=== PATIENT | female | born 1980 | race Caucasian/White ===

== ENCOUNTER 2016-11-28 15:29 | Inpatient (IN) ==
--- NOTE | 2016-11-28 15:45 | Emergency Department Note ---
Disposition Clinical Impression: Acute exacerbation of chronic obstructive airways disease Disposition: Admitted As Inpatient Condition: Fair Referrals: Kian Croft MD [Primary Care Provider] - Forms: ED Satisfaction Letter General Adult HPI - General Chief complaint: ED Shortness of Breath/Dyspnea Stated complaint: PETER Time Seen by Provider: 11/28/16 15:36 Source: patient Nursing Notes Reviewed: Yes Vital Signs Reviewed: Yes - History of Present Illness HPI Narrative: Ms. Hills, a 36-year-old female, presents from home by POV for evaluation of persistent dyspnea. Onset one week ago. She has been managed by an initial prescription of azithromycin for bronchitis. After several days, her symptoms persisted. At that time, her primary care physician prescribed Keflex. After several days, her symptoms persisted. She presents today with worsening of symptoms which she describes as dyspnea worse with mild exertion and right side pain updated in the lower ribs in the right midaxillary line. Patient has a history of COPD on inhalers which have not improved her dyspnea. She also has a history of PE previously treated on Zarrella to; she is currently not on any anticoagulation or antiplatelet medications. Patient has a history of lymphedema for which her left lower extremity is chronically swollen versus the right. ROS: Positive: Dyspnea worse with exertion, right-sided rib pain, palpitations Data: Fever, chills, nausea, vomiting, chest pains Pain Scale: 5 - Related Data Home Medications Medication Instructions Recorded Confirmed Depo-Provera 09/23/16 Previous Rx's Medication Instructions Recorded Azithromycin [Azithromycin 6-Tab 250 mg PO PER PKG DI #6 tab 11/21/16 Pack] Benzonatate [Tessalon] 200 mg PO TID PRN #30 capsule 11/21/16 GuaiFENesin ER [Mucinex] 1,200 mg PO BID #20 tbbp.12hr 11/21/16 methylPREDNISolone [Medrol] 4 mg PO TAPER #21 tablet 11/21/16 Allergies Allergy/AdvReac Type Severity Reaction Status Date / Time morphine AdvReac Hallucinati Verified 11/28/16 15:34 ng All systems ED: reviewed and negative except as stated. Past Medical History - Past Medical History Medical history: Reports: no medical history Surgical history: Reports: cholecystectomy Psychiatric history: Reports: anxiety, depression REVERSE LOGISTICS ANALYST history: Reports: no REVERSE LOGISTICS ANALYST history - Social History Smoking Status: Current every day smoker Smokeless Tobacco Status: No Alcohol use: Reports: none Drug use: Reports: none Physical Exam Vital Signs Reviewed General: Patient is alert, oriented, and in acute respiratory distress-she is tachypneic, using accessory muscles, and sitting forward. HEENT: No facial asymmetry. Head is normocephalic and atraumatic. Oral mucosa moist. Trachea midline. Cardiovascular: Heart tachycardic rate and regular rhythm without clicks, rubs, gallops, or murmurs. No JVD. PMI nondisplaced. Bilateral edema with left LE of greater circumference than right. Dorsalis pedis pulses palpable bilaterally. Respiratory: Symmetric chest rise with good respiratory effort. Bilateral breath sounds have diffuse coarse wheezes. Abdomen: Obese. Bowel sounds present normoactive x-4 quadrants. Abdomen is soft , nondistended, and nontender. Neuro: GCS 15 Psych: Patient's affect is appropriate for situation. - General General appearance: alert, in no apparent distress Course Course Narrative: Patient is SIRS (+) on intake vitals - tachycardic and tachypneic. We will perform laboratory workup in line with sepsis however, will hold on antibiotics and fluids as, in addition to a potential pulmonary infection, I also have a suspicion of pulmonary emboli. Patient presents for evaluation of persistent dyspnea for the past week despite prescription of azithromycin followed by a prescription of Keflex. Patient does have a history of COPD and her symptoms are not relieved with her typical inhalers. She does have a history of PE. She is tachycardic and tachypneic. She is oxygenating well on room air despite her tachypnea. She only wears supplemental oxygen at home during night. Clinically, I am concerned for pneumonia versus PE. She is having no chest pains. Laboratory work shows leukocytosis and hemoconcentration. Hemoconcentration likely secondary to dehydration as evidenced by her elevated creatinine which is above her baseline. I discussed this with the patient as well as my clinical concern for PE and she agrees to continue with CT chest with IV contrast as well as IV fluids. Patient has no elevation in lactic acid. Portable chest x-ray is not concerning for pneumonia. CTA chest shows no infectious process, no effusion, and no common emboli. Patient receive a triple dose of DuoNeb's. Her lung sounds did subjectively improve however, she subjectively does not feel the improvement. Notably the patient is safe for discharge home as she remains tachycardic and subjectively short of breath. Will provide IV site Medrol and admit to hospitalist for acute exacerbation of COPD. Will hold on IV antibiotic until I speak with the hospitalist. Vital Signs Temperature 97.7 F 11/28/16 15:32 Pulse Rate 137 11/28/16 15:32 Respiratory Rate 22 11/28/16 15:32 Blood Pressure 160/108 11/28/16 15:32 O2 Sat by Pulse Oximetry 96 11/28/16 15:32 Temperature 97.7 F 11/28/16 15:32 Pulse Rate 119 11/28/16 18:00 Respiratory Rate 16 11/28/16 18:00 Blood Pressure 131/94 11/28/16 18:00 O2 Sat by Pulse Oximetry 96 11/28/16 18:00 Oxygen Delivery Oxygen Delivery Room Air Medical Decision Making - Lab Data Result diagrams: 11/28/16 15:56 11/28/16 15:56 Lab Results 11/28/16 11/28/16 11/28/16 Range/Units 15:56 15:56 15:56 WBC 16.7 H (4.3-11.1) K/mcL RBC 5.56 H (3.82-4.97) M/mcL Hgb 16.6 H (11.5-15.4) g/dL Hct 49.6 H (35.3-44.9) % MCV 89.2 (83.0-100.0) fL MCH 29.9 (28.0-33.3) pg MCHC 33.5 (31.6-35.5) g/dL RDW 13.1 (11.5-14.5) % Plt Count 425 H (140-400) K/mcL MPV 8.9 L (9.4-12.4) fL Immature Gran % 1.9 (0-4) % Seg Neutrophils % 80.4 % Lymphocytes % 14.4 % Monocytes % 3.1 % Eosinophils % 0.0 % Basophils % 0.2 % Neutrophils # 13.4 H (1.6-8.9) K/mcL Lymphocytes # 2.4 (0.6-4.6) K/mcL Monocytes # 0.5 (0.0-1.3) K/mcL Eosinophils # 0.0 (0.0-0.6) K/mcL Basophils # 0.0 (0.0-0.2) K/mcL APTT (26.0-36.0) Seconds Sodium 140 (136-145) mEq/L Potassium 4.2 (3.5-4.5) mEq/L Chloride 110 H (98-109) mEq/L Carbon Dioxide 17 L (19-29) mEq/L BUN 26 H (7-20) mg/dL Creatinine 1.27 H (0.57-1.11) mg/dL Est GFR ( Amer) 57 L (> 60) Est GFR (Non-Af Amer) 47 L (> 60) BUN/Creatinine Ratio 20 (6-26) Glucose 129 H (70-99) mg/dL Calculated Osmolality 296 (280-300) Lactic Acid 1.9 (0.5-2.2) mmol/L Calcium 9.7 (8.6-10.8) mg/dL B-Natriuretic Peptide (0-100) pg/mL Urine Color (Yellow) Urine Clarity (Clear) Urine pH (5.0-8.0) pH Units Ur Specific Luther (1.010-1.025) Urine Protein (Neg-Trace) mg/dL Urine Glucose (UA) (Normal) mg/dL Urine Ketones (Negative) mg/dL Urine Blood (Negative) Urine Nitrite (Negative) Urine Bilirubin (Negative) Urine Urobilinogen (Normal) mg/dL Ur Leukocyte Esterase (Negative) Urine Microscopic RBC (0-3) per hpf Urine Microscopic WBC (0-3) per hpf Ur Squamous Epith Cells (None-Few) per lpf Urine Bacteria (None-Few) per hpf Hyaline Casts (None-Few) per lpf Ur Culture Indicated? (NO) 11/28/16 11/28/16 11/28/16 Range/Units 15:56 15:56 17:32 WBC (4.3-11.1) K/mcL RBC (3.82-4.97) M/mcL Hgb (11.5-15.4) g/dL Hct (35.3-44.9) % MCV (83.0-100.0) fL MCH (28.0-33.3) pg MCHC (31.6-35.5) g/dL RDW (11.5-14.5) % Plt Count (140-400) K/mcL MPV (9.4-12.4) fL Immature Gran % (0-4) % Seg Neutrophils % % Lymphocytes % % Monocytes % % Eosinophils % % Basophils % % Neutrophils # (1.6-8.9) K/mcL Lymphocytes # (0.6-4.6) K/mcL Monocytes # (0.0-1.3) K/mcL Eosinophils # (0.0-0.6) K/mcL Basophils # (0.0-0.2) K/mcL APTT 27.7 (26.0-36.0) Seconds Sodium (136-145) mEq/L Potassium (3.5-4.5) mEq/L Chloride (98-109) mEq/L Carbon Dioxide (19-29) mEq/L BUN (7-20) mg/dL Creatinine (0.57-1.11) mg/dL Est GFR ( Amer) (> 60) Est GFR (Non-Af Amer) (> 60) BUN/Creatinine Ratio (6-26) Glucose (70-99) mg/dL Calculated Osmolality (280-300) Lactic Acid 1.5 (0.5-2.2) mmol/L Calcium (8.6-10.8) mg/dL B-Natriuretic Peptide < 10 (0-100) pg/mL Urine Color (Yellow) Urine Clarity (Clear) Urine pH (5.0-8.0) pH Units Ur Specific Luther (1.010-1.025) Urine Protein (Neg-Trace) mg/dL Urine Glucose (UA) (Normal) mg/dL Urine Ketones (Negative) mg/dL Urine Blood (Negative) Urine Nitrite (Negative) Urine Bilirubin (Negative) Urine Urobilinogen (Normal) mg/dL Ur Leukocyte Esterase (Negative) Urine Microscopic RBC (0-3) per hpf Urine Microscopic WBC (0-3) per hpf Ur Squamous Epith Cells (None-Few) per lpf Urine Bacteria (None-Few) per hpf Hyaline Casts (None-Few) per lpf Ur Culture Indicated? (NO) 11/28/16 Range/Units 18:05 WBC (4.3-11.1) K/mcL RBC (3.82-4.97) M/mcL Hgb (11.5-15.4) g/dL Hct (35.3-44.9) % MCV (83.0-100.0) fL MCH (28.0-33.3) pg MCHC (31.6-35.5) g/dL RDW (11.5-14.5) % Plt Count (140-400) K/mcL MPV (9.4-12.4) fL Immature Gran % (0-4) % Seg Neutrophils % % Lymphocytes % % Monocytes % % Eosinophils % % Basophils % % Neutrophils # (1.6-8.9) K/mcL Lymphocytes # (0.6-4.6) K/mcL Monocytes # (0.0-1.3) K/mcL Eosinophils # (0.0-0.6) K/mcL Basophils # (0.0-0.2) K/mcL APTT (26.0-36.0) Seconds Sodium (136-145) mEq/L Potassium (3.5-4.5) mEq/L Chloride (98-109) mEq/L Carbon Dioxide (19-29) mEq/L BUN (7-20) mg/dL Creatinine (0.57-1.11) mg/dL Est GFR ( Amer) (> 60) Est GFR (Non-Af Amer) (> 60) BUN/Creatinine Ratio (6-26) Glucose (70-99) mg/dL Calculated Osmolality (280-300) Lactic Acid (0.5-2.2) mmol/L Calcium (8.6-10.8) mg/dL B-Natriuretic Peptide (0-100) pg/mL Urine Color Yellow (Yellow) Urine Clarity Cloudy A (Clear) Urine pH 6.5 (5.0-8.0) pH Units Ur Specific Luther > 1.030 H (1.010-1.025) Urine Protein Negative (Neg-Trace) mg/dL Urine Glucose (UA) Normal (Normal) mg/dL Urine Ketones Negative (Negative) mg/dL Urine Blood Small H (Negative) Urine Nitrite Negative (Negative) Urine Bilirubin Negative (Negative) Urine Urobilinogen Normal (Normal) mg/dL Ur Leukocyte Esterase Large H (Negative) Urine Microscopic RBC 5-15 H (0-3) per hpf Urine Microscopic WBC TNTC H (0-3) per hpf Ur Squamous Epith Cells Many H (None-Few) per lpf Urine Bacteria None Seen (None-Few) per hpf Hyaline Casts None Seen (None-Few) per lpf Ur Culture Indicated? YES A (NO) - EKG Data EKG #1 EKG attestation: Yes I reviewed and interpreted this EKG. EKG results narrative: EKG dated since November 2016 at 15:45 interpreted as sinus tachycardia with a rate of 121. Normal intervals. Normal axis. Nonspecific ST-T changes. Compared to previous dictated showing no acute ischemic changes.
[2016-11-28] MEDS ORDERED: Ipratropium/Albuterol Neb 3 ML IH ONE (15:46)
[2016-11-28] MEDS ORDERED: 0.9 % Sodium Chloride 1,000 ML IVC ONE (15:47)
--- NOTE | 2016-11-28 16:09 | Emergency Department Note ---
Disposition Clinical Impression: Acute exacerbation of chronic obstructive airways disease Disposition: Admitted As Inpatient Condition: Fair Referrals: Kian Croft MD [Primary Care Provider] - Forms: ED Satisfaction Letter General Adult HPI - General Chief complaint: ED Shortness of Breath/Dyspnea Stated complaint: PETER Time Seen by Provider: 11/28/16 15:36 Source: patient Nursing Notes Reviewed: Yes Vital Signs Reviewed: Yes - History of Present Illness Pain Scale: 5 - Related Data Home Medications Medication Instructions Recorded Confirmed Depo-Provera 09/23/16 Previous Rx's Medication Instructions Recorded Azithromycin [Azithromycin 6-Tab 250 mg PO PER PKG DI #6 tab 11/21/16 Pack] Benzonatate [Tessalon] 200 mg PO TID PRN #30 capsule 11/21/16 GuaiFENesin ER [Mucinex] 1,200 mg PO BID #20 tbbp.12hr 11/21/16 methylPREDNISolone [Medrol] 4 mg PO TAPER #21 tablet 11/21/16 Allergies Allergy/AdvReac Type Severity Reaction Status Date / Time morphine AdvReac Hallucinati Verified 11/28/16 15:34 ng Past Medical History - Past Medical History Medical history: Reports: no medical history Surgical history: Reports: cholecystectomy Psychiatric history: Reports: anxiety, depression INSTRUCTOR BRIDGE history: 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: no INSTRUCTOR BRIDGE history - Social History Smoking Status: Current every day smoker Smokeless Tobacco Status: No Alcohol use: Reports: none Drug use: Reports: none Physical Exam - General General appearance: alert, in no apparent distress Course Vital Signs Temperature 97.7 F 11/28/16 15:32 Pulse Rate 137 11/28/16 15:32 Respiratory Rate 22 11/28/16 15:32 Blood Pressure 160/108 11/28/16 15:32 O2 Sat by Pulse Oximetry 96 11/28/16 15:32 Temperature 97.7 F 11/28/16 15:32 Pulse Rate 115 11/28/16 17:30 Respiratory Rate 16 11/28/16 17:30 Blood Pressure 130/94 11/28/16 17:30 O2 Sat by Pulse Oximetry 97 11/28/16 17:30 Oxygen Delivery Oxygen Delivery Room Air Medical Decision Making - MDM Narrative Medical decision making narrative: I examined this patient and my medical decision-making was reviewed with the Resident Physician. I agree with the documented findings, disposition and treatment plan as described except to the extent set forth below. Patient seen and evaluated by myself and Dr. Gutierrez, I agree with his evaluation management plan, I supervised the care of the patient's stay. Patient was in stay was tachycardia and tachypnea. She has had dyspnea and not short of breath. She stated that she has been on antibiotics in urgent care and it sounds like steroids also. She had a history of possible fluid in her lungs but also PE. She does meet moderate criteria on well's criteria sorting ahead and CT her chest we will get labs on her. She is not febrile here she appears nontoxic. Fluids breathing treatment EKG and reassess. She may need admission. 1627 hrs.: Patient's GFR is 1.27; she has had IV contrast dye before and her creatinine was higher. We have given her IV fluids for hydration and to help with clearance of the dye, I think it is important to rule out a PE and I think that is a better study for her versus a VQ scan; discussed this with the patient before the CAT scan is done. She agrees to this plan of management. Chest CTA 11/28/16 15:46 IMPRESSION: No evidence of pulmonary embolism or acute pulmonary abnormality. D/ / Kilo Ramírez MD / Kilo Ramírez MD Interpreting Provider: Kilo Ramírez MD Chest X-Ray 11/28/16 15:46 IMPRESSION: Negative portable study. D/ / Ellie Enriquez Cha, MD / Ellie Enriquez Cha, MD Interpreting Provider: Ellie Enriquez Cha, MD 1745 hrs.: No signs of PE. On CTA. No signs of pneumonia. I think this is more an acute exacerbation of COPD. Regarding [facility] the hospital for that. As her sats improved but she still has wheezing in the bases despite breathing treatments here. She is in agreement with this plan. Waiting on hospitalist for admission and placement. - Lab Data Result diagrams: 11/28/16 15:56 11/28/16 15:56 Lab Results 11/28/16 11/28/16 11/28/16 Range/Units 15:56 15:56 15:56 WBC 16.7 H (4.3-11.1) K/mcL RBC 5.56 H (3.82-4.97) M/mcL Hgb 16.6 H (11.5-15.4) g/dL Hct 49.6 H (35.3-44.9) % MCV 89.2 (83.0-100.0) fL MCH 29.9 (28.0-33.3) pg MCHC 33.5 (31.6-35.5) g/dL RDW 13.1 (11.5-14.5) % Plt Count 425 H (140-400) K/mcL MPV 8.9 L (9.4-12.4) fL Immature Gran % 1.9 (0-4) % Seg Neutrophils % 80.4 % Lymphocytes % 14.4 % Monocytes % 3.1 % Eosinophils % 0.0 % Basophils % 0.2 % Neutrophils # 13.4 H (1.6-8.9) K/mcL Lymphocytes # 2.4 (0.6-4.6) K/mcL Monocytes # 0.5 (0.0-1.3) K/mcL Eosinophils # 0.0 (0.0-0.6) K/mcL Basophils # 0.0 (0.0-0.2) K/mcL APTT (26.0-36.0) Seconds Sodium 140 (136-145) mEq/L Potassium 4.2 (3.5-4.5) mEq/L Chloride 110 H (98-109) mEq/L Carbon Dioxide 17 L (19-29) mEq/L BUN 26 H (7-20) mg/dL Creatinine 1.27 H (0.57-1.11) mg/dL Est GFR ( Amer) 57 L (> 60) Est GFR (Non-Af Amer) 47 L (> 60) BUN/Creatinine Ratio 20 (6-26) Glucose 129 H (70-99) mg/dL Calculated Osmolality 296 (280-300) Lactic Acid 1.9 (0.5-2.2) mmol/L Calcium 9.7 (8.6-10.8) mg/dL B-Natriuretic Peptide (0-100) pg/mL 11/28/16 11/28/16 11/28/16 Range/Units 15:56 15:56 17:32 WBC (4.3-11.1) K/mcL RBC (3.82-4.97) M/mcL Hgb (11.5-15.4) g/dL Hct (35.3-44.9) % MCV (83.0-100.0) fL MCH (28.0-33.3) pg MCHC (31.6-35.5) g/dL RDW (11.5-14.5) % Plt Count (140-400) K/mcL MPV (9.4-12.4) fL Immature Gran % (0-4) % Seg Neutrophils % % Lymphocytes % % Monocytes % % Eosinophils % % Basophils % % Neutrophils # (1.6-8.9) K/mcL Lymphocytes # (0.6-4.6) K/mcL Monocytes # (0.0-1.3) K/mcL Eosinophils # (0.0-0.6) K/mcL Basophils # (0.0-0.2) K/mcL APTT 27.7 (26.0-36.0) Seconds Sodium (136-145) mEq/L Potassium (3.5-4.5) mEq/L Chloride (98-109) mEq/L Carbon Dioxide (19-29) mEq/L BUN (7-20) mg/dL Creatinine (0.57-1.11) mg/dL Est GFR ( Amer) (> 60) Est GFR (Non-Af Amer) (> 60) BUN/Creatinine Ratio (6-26) Glucose (70-99) mg/dL Calculated Osmolality (280-300) Lactic Acid 1.5 (0.5-2.2) mmol/L Calcium (8.6-10.8) mg/dL B-Natriuretic Peptide < 10 (0-100) pg/mL
[2016-11-28 16:15] LABS: Basophils % 0.2 %; Hematocrit 49.6 % (35.3-44.9); Hemoglobin 16.6 g/dL (11.5-15.4); Immature Granulocytes % 1.9 % (0-4); Lymphocytes # 2.4 K/mcL (0.6-4.6); Lymphocytes % 14.4 %; Mean Corpuscular HGB Conc 33.5 g/dL (31.6-35.5); Mean Corpuscular Hemoglobin 29.9 pg (28.0-33.3); Mean Corpuscular Volume 89.2 fL (83.0-100.0); Mean Platelet Volume 8.9 fL (9.4-12.4); Monocytes # 0.5 K/mcL (0.0-1.3); Monocytes % 3.1 %; Neutrophils # 13.4 K/mcL (1.6-8.9); Platelet Count 425 K/mcL (140-400); Red Blood Count 5.56 M/mcL (3.82-4.97); Red Cell Distribution Width 13.1 % (11.5-14.5); Segmented Neutrophils % 80.4 %
[2016-11-28 16:19] LABS: Calcium 9.7 mg/dL (8.6-10.8); Potassium 4.2 mEq/L (3.5-4.5)
[2016-11-28] MEDS ORDERED: methylPREDNISolone 125 MG/2 ML VIAL IVP ONE (17:37)
[2016-11-28 18:22] LABS: Bilirubin,Urine Negative (Negative); Blood,Urine Small (Negative); Clarity,Urine Cloudy (Clear); Color,Urine Yellow (Yellow); Glucose,Urine (UA) Normal (Normal); Ketones,Urine Negative (Negative); Leukocyte Esterase,Urine Large (Negative); Nitrite,Urine Negative (Negative); PH,Urine 6.5 pH Units (5.0-8.0); Protein,Urine Negative (Neg-Trace); Specific Gravity,Urine > 1.030 (1.010-1.025); Urobilinogen,Urine Normal (Normal)
[2016-11-28 18:26] LABS: Bacteria,Urine None Seen per hpf (None-Few); Hyaline Casts,Urine None Seen per lpf (None-Few); Squamous Epithelial Cell,Urine Many per lpf (None-Few); WBC,Urine TNTC per hpf (0-3)
[2016-11-28] MEDS ORDERED: *HR* OxyCODONE/APAP 10/325 TABLET PO ONE (19:23)
[2016-11-28] MEDS ORDERED: Naloxone 0.4 MG/ML INJ IVP PRN (20:23)
[2016-11-28] MEDS ORDERED: Ipratropium/Albuterol Neb 3 ML IH PRN (20:26)
[2016-11-28] MEDS ORDERED: Benzonatate 100 MG CAPSULE PO PRN (20:27)
[2016-11-28] MEDS ORDERED: Nicotine 21 MG PATCH.TD24 TD SCH (20:30)
--- NOTE | 2016-11-28 20:31 | Internal Med History&Physical ---
Date of Encounter: 11/28/16 Time of Encounter: 20:29 Assessment and Plan (1) Acute exacerbation of chronic obstructive airways disease Current visit: Yes Status: Acute IV steroids, IV doxy, duonebs (2) Leukocytosis Current visit: No Status: Acute likely a result of home prednisone. CT chest w/o consolidation Qualifiers: Leukocytosis type: unspecified Qualified Code(s): D72.829 - Elevated white blood cell count, unspecified (3) Nephrolithiasis Current visit: Yes Status: Acute asymptomatic . request for US kidney - ordered (as patient was suppose to get it tomorrow). Follow up with Dr Paulino outpatient for further management (4) Morbid obesity Current visit: Yes Status: Acute Internal Medicine - H&P: HPI Chief complaint: SOB History of present illness: Ms. Hills is a 36 year old female who presents with acute COPD/bronchitis flare. She developed worsening SOB in the last week or so associated with sensation of heart racing with the SOB that is worse on ambulation. She saw her PCP and was prescribed course of antibiotics (azithro and later keflex) and prednisone. However, her symptoms did not improve. As baseline, she smokes 1-2 PPD, is on RA. She however has home oxygen and has been using 3-4 L daily due to respiratory symptoms. She appears to be in sinus tachycardia rate 121 On review, she requested to obtain renal US for stone disease for which she is schedule to have tomorrow in the outpatient - she reports establishing with Dr Paulino urology. Past Med Surg Social Fam HX - Past Medical History Medical history: no medical history Psychiatric history: anxiety, depression - Past Surgical History Surgical History: cholecystectomy - Social History Smoking Status: Current every day smoker Smokeless Tobacco Status: No Alcohol use: none Drug use: none - Family History Father Adopted: No Hx Family Cancer: Yes Internal Medicine - H&P: Meds Depo-Provera 09/23/16 [History] Azithromycin [Azithromycin 6-Tab Pack] 250 mg PO PER PKG DI #6 tab 11/21/16 [Rx] Benzonatate [Tessalon] 200 mg PO TID PRN #30 capsule 11/21/16 [Rx] GuaiFENesin ER [Mucinex] 1,200 mg PO BID #20 tbbp.12hr 11/21/16 [Rx] methylPREDNISolone [Medrol] 4 mg PO TAPER #21 tablet 11/21/16 [Rx] 3 Allergy/AdvReac Type Severity Reaction Status Date / Time morphine AdvReac Hallucinati Verified 11/28/16 15:34 ng All Systems PM: A 10-system review of systems was performed and is negative for pertinent findings except as documented above in the HPI. Review of systems: ROS 14 point review of systems reviewed as best as possible given presentation. Pertinent positive or negative as per HPI or otherwise reviewed as negative - Constitutional Vitals: Temp Pulse Resp BP Pulse Ox 97.7 F 120 0 0/0 96 11/28/16 15:32 11/28/16 19:23 11/28/16 19:42 11/28/16 19:42 11/28/16 19:23 Exam: General - AAO x 3 Psych - Appropriate affect/speech. No agitation Eyes - BLANCA. Eye lids intact. No scleral icterus Neuro - No gross peripheral or central neuro deficits Heart - Sinus. RRR. S1 and S2 present. No added HS/murmurs appreciated. No elevated JVD appreciated. Lung - Adequate air entry b/l, diffuse wheezes throughout, no crackles GI - Soft, non-tender. No hepatosplenomegaly/ascites. BS+ - No CVA/suprapubic tenderness or palpable bladder distension Skin - Intact. No rash/petechiae/ecchymosis. Warm extremities MSK - Joints with normal ROM. No joint swellings Internal Med - H&P Results - Labs CBC & Chem 7: 11/28/16 15:56 11/28/16 15:56
[2016-11-28] MEDS ORDERED: Ipratropium/Albuterol Neb 3 ML IH SCH (22:00)
[2016-11-28 23:17] VITALS: BP 134/82
[2016-11-28] MEDS ORDERED: *HR* OxyCODONE/APAP 10/325 TABLET PO PRN (23:43)
[2016-11-29] MEDS ORDERED: *HR* Methadone 10 MG TABLET PO SCH
[2016-11-29] MEDS ORDERED: MethylPREDNISolone 40 MG/ML VIAL IVP SCH
[2016-11-29] MEDS ORDERED: Doxycycline 100 MG in 0.9 % Sodium Chloride Mini Bag 100 ML IVPB SCH (06:00)
[2016-11-29] MEDS ORDERED: *HR* Enoxaparin 40 MG/0.4 ML SYRINGE SQ SCH (06:00)
--- NOTE | 2016-11-29 17:46 | Electrocardiograph Report ---
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
== END 2016-11-29 01:21 | disposition left against medical advice (07) | DRG 191 ==
LOC: EMEROO 15:29 → 3BNU 15:29
PROVIDERS: ADMIT Internal Medicine Hematology & Oncology; ATTEND Nurse Practitioner Family

== ENCOUNTER 2016-11-29 15:00 | Inpatient (IN) ==
[2016-11-29 15:58] LABS: Basophils # 0.1 K/mcL (0.0-0.2); Basophils % 0.2 %; Hematocrit 46.4 % (35.3-44.9); Hemoglobin 15.2 g/dL (11.5-15.4); Immature Granulocytes % 1.3 % (0-4); Lymphocytes # 4.4 K/mcL (0.6-4.6); Lymphocytes % 14.3 %; Mean Corpuscular HGB Conc 32.8 g/dL (31.6-35.5); Mean Corpuscular Hemoglobin 29.4 pg (28.0-33.3); Mean Corpuscular Volume 89.7 fL (83.0-100.0); Mean Platelet Volume 8.8 fL (9.4-12.4); Monocytes % 6.3 %; Neutrophils # 24.1 K/mcL (1.6-8.9); Platelet Count 413 K/mcL (140-400); Red Blood Count 5.17 M/mcL (3.82-4.97); Red Cell Distribution Width 13.2 % (11.5-14.5); Segmented Neutrophils % 77.9 %
[2016-11-29 16:10] LABS: BUN/Creatinine Ratio 19 (6-26); Blood Urea Nitrogen 23 mg/dL (7-20); Calcium 9.3 mg/dL (8.6-10.8); Carbon Dioxide 18 mEq/L (19-29); Chloride 108 mEq/L (98-109); Glucose 117 mg/dL (70-99); Osmolality,Calculated 293 (280-300); Potassium 3.5 mEq/L (3.5-4.5); Sodium 139 mEq/L (136-145); eGFR For African Americans > 60 (> 60); eGFR For Non-African Americans 51 (> 60)
[2016-11-29 16:20] LABS: Platelet Estimate Normal (Normal)
--- NOTE | 2016-11-29 16:51 | Emergency Department Note ---
START Narrative - START START: I examined this patient and my medical decision-making was reviewed with the CHIPPER/PA/Advanced Practice Nurse/Resident Physician. I agree with the documented findings, disposition and treatment plan as described except to the extent set forth below. ED attending note: Patient seen with emergency medicine resident Dr. FLORES. We independently evaluated the patient. We independently had [id number] contact with the patient. Please see a copy of his note for details of the history and physical, evaluation, management and disposition of this emergency Department patient. Briefly: A 36-year-old female was seen yesterday at [facility] admitted but left AMA. For COPD and pneumonia. Patient returns with similar and worsening symptoms. Her white count is now 3116 yesterday. Patient will get an ultrasound-guided midline IV antibiotics screening labs and chest x-ray with admission and anticipated. Providing 45 minutes of critical care services to this patient
--- NOTE | 2016-11-29 17:19 | Emergency Department Note ---
Disposition Clinical Impression: Acute exacerbation of chronic obstructive airways disease, Leukocytosis Disposition: Admitted As Inpatient Condition: Fair Referrals: Kian Croft MD [Primary Care Provider] - Forms: ED Satisfaction Letter SOB HPI - General Chief Complaint: ED Shortness of Breath/Dyspnea Stated Complaint: COPD,High HR Time Seen by Provider: 11/29/16 16:19 Source: patient Mode of arrival: ambulatory Limitations: no limitations Nursing Notes Reviewed: Yes Vital Signs Reviewed: Yes - History of Present Illness Patient presenting to the ED with the complaint of a COPD exacerbation and tachycardia. Patient was admitted to the hospital last night from this emergency department for a COPD exacerbation. She left AGAINST MEDICAL ADVICE from the hospital floor early this morning due to being "poked too many times for IVs." States that she went home and now feels worse. Implanting of shortness of breath, chest tightness, slightly productive cough. States she was treated as an outpatient for bronchitis versus pneumonia with Keflex and azithromycin but has not improved. She had a dose of antibiotics yesterday, but again left AGAINST MEDICAL ADVICE. Centrally presenting now for readmission. - Related Data Home Medications Medication Instructions Recorded Confirmed Methadone 20 mg PO Q8HR 11/28/16 11/29/16 Oxycodone HCl/Acetaminophen 1 each PO Q4-6H PRN 11/28/16 11/29/16 [Percocet 10-325 mg Tablet] Albuterol Sulfate [Albuterol 2 puff IH Q4H PRN 11/29/16 11/29/16 Inhaler] Amlodipine Besylate 2.5 mg PO DAILY 11/29/16 11/29/16 Ammonium Lactate [Sherice-Hydrolac] 1 appl TP BID 11/29/16 11/29/16 Aripiprazole [Abilify Maintena] 300 mg IM Q28D 11/29/16 11/29/16 Chlorthalidone 25 mg PO DAILY 11/29/16 11/29/16 Ciclopirox Olamine [Ciclopirox] 1 appl TP BID 11/29/16 11/29/16 Ergocalciferol (VITAMIN D2) 50,000 unit PO 2XW 11/29/16 11/29/16 [Vitamin D2] Fluticasone/Salmeterol [Advair 1 each IH BID 11/29/16 11/29/16 250-50 Diskus] Furosemide [Lasix] 40 mg PO BID 11/29/16 11/29/16 Metoclopramide [Reglan] 5 mg PO BID 11/29/16 11/29/16 Metoprolol Succinate 100 mg PO DAILY 11/29/16 11/29/16 Potassium Chloride [Klor-Con 10] 10 meq PO DAILY 11/29/16 11/29/16 Promethazine HCl 12.5 mg PO Q6H PRN 11/29/16 11/29/16 Rivaroxaban [Xarelto] 20 mg PO DAILY 11/29/16 11/29/16 Sertraline [Zoloft] 100 mg PO DAILY 11/29/16 11/29/16 cephALEXin [Cephalexin] 500 mg PO QID 11/29/16 11/29/16 diazePAM [Valium] 10 mg PO BID 11/29/16 11/29/16 predniSONE [PredniSONE] See Taper PO DAILY 11/29/16 11/29/16 rOPINIRole [Requip] 0.25 mg PO HS 11/29/16 11/29/16 Allergies Allergy/AdvReac Type Severity Reaction Status Date / Time morphine AdvReac Hallucinati Verified 11/28/16 15:34 ng All systems ED: reviewed and negative except as stated. Constitutional: Reports: fever, chills Eyes: Denies: vision change Cardiovascular: Reports: chest pain, dyspnea on exertion Respiratory: Reports: cough, dyspnea Gastrointestinal: Reports: nausea. Denies: abdominal pain, vomiting Neurological: Reports: headache (Chronic) Past Medical History - Past Medical History Attestation: Yes The following information was validated with the patient. Source: patient Medical history: Reports: COPD Surgical history: Reports: cholecystectomy, orthopedic, other Psychiatric history: Reports: anxiety, depression CAD DRAFTER history: Reports: no CAD DRAFTER history - Social History Smoking Status: Current every day smoker Smokeless Tobacco Status: No Alcohol use: Reports: none Drug use: Reports: none Physical Exam - General Limitations: no limitations General appearance: alert, in no apparent distress - Head Head exam: atraumatic - ENT ENT exam: normal exam, normal oropharynx, mucous membranes moist - Chest Chest inspection: Present: normal inspection, symmetric chest wall rise - Respiratory Respiratory exam: Present: respiratory distress (Mild, no accessory muscle use) , wheezes. Absent: normal lung sounds bilaterally - Cardiovascular Cardiovascular exam: Present: tachycardia, normal heart sounds - Abdominal Exam Abdominal exam: Present: soft, other (Obese, nontender) - Extremities Exam Extremities exam: Present: other (Chronic lymphedema of the left lower extremity , no change from baseline, no pitting edema, no erythema, no calf tenderness) - Neurological Exam Neurological exam: Present: alert, oriented X3 - Psychiatric Psychiatric exam: Present: normal affect, normal mood - Skin Skin exam: Present: warm, dry, intact, normal color Course Course Narrative: Patient presenting with COPD exacerbation and tachycardia, status post leaving AMA for bronchitis admission. Patient had white blood cell count in the lobby, which was double what it was yesterday. Could be due to steroid administration yesterday. However, patient clinically feeling worse. We will give IV antibiotics, placed midline and admitted to the hospital. - Reevaluation(s) Reevaluation #1: Admitted to hospitalist service Vital Signs Temperature 98.2 F 11/29/16 15:17 Pulse Rate 104 11/29/16 15:17 Respiratory Rate 16 11/29/16 15:17 Blood Pressure 141/98 11/29/16 15:17 O2 Sat by Pulse Oximetry 96 11/29/16 15:17 Temperature 98.2 F 11/29/16 15:17 Pulse Rate 116 11/29/16 18:00 Respiratory Rate 20 11/29/16 18:37 Blood Pressure 160/109 11/29/16 18:37 O2 Sat by Pulse Oximetry 95 11/29/16 18:37 Oxygen Delivery Oxygen Delivery Room Air Shortness of Breath/Dyspnea - Medical Records Medical records reviewed: Yes I reviewed the patient's medical records. - Lab Data Lab results reviewed: Yes I reviewed the patient's lab results. Result diagrams: 11/29/16 15:50 11/29/16 15:50 Lab Results 11/29/16 11/29/16 11/29/16 Range/Units 15:50 15:50 15:50 WBC 30.9 H* D (4.3-11.1) K/mcL RBC 5.17 H (3.82-4.97) M/mcL Hgb 15.2 (11.5-15.4) g/dL Hct 46.4 H (35.3-44.9) % MCV 89.7 (83.0-100.0) fL MCH 29.4 (28.0-33.3) pg MCHC 32.8 (31.6-35.5) g/dL RDW 13.2 (11.5-14.5) % Plt Count 413 H (140-400) K/mcL MPV 8.8 L (9.4-12.4) fL Immature Gran % 1.3 (0-4) % Seg Neutrophils % 77.9 % Lymphocytes % 14.3 % Monocytes % 6.3 % Eosinophils % 0.0 % Basophils % 0.2 % Neutrophils # 24.1 H (1.6-8.9) K/mcL Lymphocytes # 4.4 (0.6-4.6) K/mcL Monocytes # 2.0 H (0.0-1.3) K/mcL Eosinophils # 0.0 (0.0-0.6) K/mcL Basophils # 0.1 (0.0-0.2) K/mcL Platelet Estimate Normal (Normal) Sodium 139 (136-145) mEq/L Potassium 3.5 (3.5-4.5) mEq/L Chloride 108 (98-109) mEq/L Carbon Dioxide 18 L (19-29) mEq/L BUN 23 H (7-20) mg/dL Creatinine 1.18 H (0.57-1.11) mg/dL Est GFR ( Amer) > 60 (> 60) Est GFR (Non-Af Amer) 51 L (> 60) BUN/Creatinine Ratio 19 (6-26) Glucose 117 H (70-99) mg/dL Calculated Osmolality 293 (280-300) Calcium 9.3 (8.6-10.8) mg/dL Troponin I 0.00 (0-0.03) ng/mL - Radiology Data Radiology results reviewed: Yes I reviewed the patient's radiology results. Chest X-Ray 11/29/16 16:58 IMPRESSION: No acute cardiopulmonary abnormality. D/ / Raymond Florentino MD / Raymond Florentino MD Interpreting Provider: Raymond Florentino MD
[2016-11-29] MEDS ORDERED: Aspirin 325 MG TABLET PO ONE (17:26)
[2016-11-29] MEDS ORDERED: Levofloxacin 750 MG/150 ML 750 MG/150 ML BAG IVPB ONE (17:35)
[2016-11-29] MEDS ORDERED: Piperacillin/Tazobactam 4.5 GM in D5% in Water (Mini-Bag+) 100 ML IVPB ONE (17:35)
[2016-11-29] MEDS ORDERED: Ipratropium/Albuterol Neb 3 ML IH ONE (17:35)
[2016-11-29] MEDS ORDERED: *HR* OxyCODONE/APAP 10/325 TABLET PO ONE (20:39)
[2016-11-29] MEDS ORDERED: Naloxone 0.4 MG/ML INJ IVP PRN (20:49)
[2016-11-29] MEDS ORDERED: Ipratropium/Albuterol Neb 3 ML IH PRN (20:49)
--- NOTE | 2016-11-29 20:52 | Internal Med History&Physical ---
Date of Encounter: 11/29/16 Time of Encounter: 20:54 Assessment and Plan (1) Acute exacerbation of chronic obstructive airways disease Current visit: Yes Status: Acute IV steroids, DuoNeb's, IV doxycycline (2) SIRS (systemic inflammatory response syndrome) Current visit: Yes Status: Acute Trend WBC. This could be related to steroid use. Blood cultures not taken prior to antibiotics and administered in the ER. We will monitor her hospital course and management accordingly Tachycardia could be related to respiratory issues - we will monitor (3) Morbid obesity with BMI of 50.0-59.9, adult Current visit: No Status: Acute (4) Chronic back pain Current visit: No Status: Chronic On chronic methadone, percs Qualifiers: Qualified Code(s): M54.9 - Dorsalgia, unspecified; G89.29 - Other chronic pain Internal Medicine - H&P: HPI Chief complaint: SOB History of present illness: Ms. Hills is a 36 year old female who presents with acute COPD flare. 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 She returns due to persistent and worsening SOB not improving while at home. In regards to her presentation, She developed worsening SOB in the last week or so associated with sensation of heart racing with the SOB that is worse on ambulation. She saw her PCP and was prescribed course of antibiotics (azithro and later keflex) and prednisone. However, her symptoms did not improve. As baseline, she smokes 1-2 PPD, is on RA. She however has home oxygen and has been using 3-4 L daily due to respiratory symptoms. In the ED, she was found to have worsening leukocytosis likely related to steroids use. She was empirically treated with broad spectrum antibiotics w/o prior blood draw. She does not appear septic. EKG reviewed by self noted rate 112, sinus tachycardia. XR/XR chest 1V portable IMPRESSION: No acute cardiopulmonary abnormality. Past Med Surg Social Fam HX - Past Medical History Medical history: COPD Psychiatric history: anxiety, depression - Past Surgical History Surgical History: cholecystectomy, orthopedic, other - Social History Smoking Status: Current every day smoker Smokeless Tobacco Status: No Alcohol use: none Drug use: none - Family History Father Adopted: No Hx Family Cancer: Yes (neck) Internal Medicine - H&P: Meds Methadone 20 mg PO Q8HR 11/28/16 [History] Oxycodone HCl/Acetaminophen [Percocet 10-325 mg Tablet] 1 each PO Q4-6H PRN 01/04 [History] Albuterol Sulfate [Albuterol Inhaler] 2 puff IH Q4H PRN 11/29/16 [History] Amlodipine Besylate 2.5 mg PO DAILY 11/29/16 [History] Ammonium Lactate [Sherice-Hydrolac] 1 appl TP BID 11/29/16 [History] Aripiprazole [Abilify Maintena] 300 mg IM Q28D 11/29/16 [History] Chlorthalidone 25 mg PO DAILY 11/29/16 [History] Ciclopirox Olamine [Ciclopirox] 1 appl TP BID 11/29/16 [History] Ergocalciferol (VITAMIN D2) [Vitamin D2] 50,000 unit PO 2XW 11/29/16 [History] Fluticasone/Salmeterol [Advair 250-50 Diskus] 1 each IH BID 11/29/16 [History] Furosemide [Lasix] 40 mg PO BID 11/29/16 [History] Metoclopramide [Reglan] 5 mg PO BID 11/29/16 [History] Metoprolol Succinate 100 mg PO DAILY 11/29/16 [History] Potassium Chloride [Klor-Con 10] 10 meq PO DAILY 11/29/16 [History] Promethazine HCl 12.5 mg PO Q6H PRN 11/29/16 [History] Rivaroxaban [Xarelto] 20 mg PO DAILY 11/29/16 [History] Sertraline [Zoloft] 100 mg PO DAILY 11/29/16 [History] cephALEXin [Cephalexin] 500 mg PO QID 11/29/16 [History] diazePAM [Valium] 10 mg PO BID 11/29/16 [History] predniSONE [PredniSONE] See Taper PO DAILY 11/29/16 [History] rOPINIRole [Requip] 0.25 mg PO HS 11/29/16 [History] 3 Allergy/AdvReac Type Severity Reaction Status Date / Time morphine AdvReac Hallucinati Verified 11/28/16 15:34 ng All Systems PM: A 10-system review of systems was performed and is negative for pertinent findings except as documented above in the HPI. Review of systems: ROS 14 point review of systems reviewed as best as possible given presentation. Pertinent positive or negative as per HPI or otherwise reviewed as negative - Constitutional Vitals: Temp Pulse Resp BP Pulse Ox 98.2 F 116 20 160/109 95 11/29/16 15:17 11/29/16 18:00 11/29/16 18:37 11/29/16 18:37 11/29/16 18:37 Exam: General - AAO x 3 Psych - Appropriate affect/speech. No agitation Eyes - BLANCA. Eye lids intact. No scleral icterus Neuro - No gross peripheral or central neuro deficits with intact CN 2-12 exam Heart - Sinus. RRR. S1 and S2 present. No added HS/murmurs appreciated. No elevated JVD appreciated. Lung - Adequate air entry b/l, diffuse wheezes throughout all lung hobson GI - obesity. Soft, non-tender. No hepatosplenomegaly/ascites. BS+ - No CVA/suprapubic tenderness or palpable bladder distension Skin - Intact. No rash/petechiae/ecchymosis. Warm extremities. +2 swollen calves bilaterally MSK - Joints with normal ROM. No joint swellings Internal Med - H&P Results - Labs CBC & Chem 7: 11/29/16 15:50 11/29/16 15:50 Labs: Short CBC 11/29/16 Range/Units 15:50 WBC 30.9 H* D (4.3-11.1) K/mcL Hgb 15.2 (11.5-15.4) g/dL Hct 46.4 H (35.3-44.9) % Plt Count 413 H (140-400) K/mcL Neutrophils # 24.1 H (1.6-8.9) K/mcL BMP 11/29/16 15:50 Sodium 139 Potassium 3.5 Chloride 108 Carbon Dioxide 18 L BUN 23 H Creatinine 1.18 H Glucose 117 H Calcium 9.3 Cardiac Enzymes 11/29/16 Range/Units 15:50 Troponin I 0.00 (0-0.03) ng/mL - Impressions ITS Impressions Chest X-Ray 11/29/16 15:21 IMPRESSION: No acute cardiopulmonary process. D/ / 11/29/2016 15:57:27 Jon Holley MD / demetria Interpreting Provider: Jon Holley MD Chest X-Ray 11/29/16 16:58 IMPRESSION: No acute cardiopulmonary abnormality. D/ / Raymond Florentino MD / Raymond Florentino MD Interpreting Provider: Raymond Florentino MD
[2016-11-29] MEDS ORDERED: ARIPIPRAZOLE 300 MG IM SCH (21:00)
[2016-11-29] MEDS ORDERED: 0.9 % Sodium Chloride 1,000 ML ONE (21:34)
[2016-11-29] MEDS: Ipratropium/Albuterol Neb 3 ML IH SCH (21:36)
[2016-11-29] MEDS: Azithromycin 500 MG in D5% in Water 250 ML IVPB SCH (22:41)
[2016-11-29] MEDS: MethylPREDNISolone 40 MG/ML VIAL IVP SCH (22:42)
[2016-11-29] MEDS: Furosemide 40 MG TABLET PO SCH (22:43)
[2016-11-29] MEDS: diazePAM 10 MG TABLET PO PRN (22:43)
[2016-11-29] MEDS: rOPINIRole 0.25 MG TABLET PO SCH (22:43)
[2016-11-29] MEDS: *HR* Methadone 10 MG TABLET PO SCH (22:57)
[2016-11-30] MEDS: Ipratropium/Albuterol Neb 3 ML IH SCH ×4 (03:45→21:40)
[2016-11-30 05:29] LABS: BUN/Creatinine Ratio 23 (6-26); Blood Urea Nitrogen 27 mg/dL (7-20); Calcium 9.1 mg/dL (8.6-10.8); Carbon Dioxide 19 mEq/L (19-29); Chloride 106 mEq/L (98-109); Glucose 131 mg/dL (70-99); Osmolality,Calculated 293 (280-300); Sodium 138 mEq/L (136-145); eGFR For African Americans > 60 (> 60); eGFR For Non-African Americans 52 (> 60)
[2016-11-30 05:32] LABS: Basophils % 0.1 %; Hematocrit 44.7 % (35.3-44.9); Hemoglobin 14.9 g/dL (11.5-15.4); Immature Granulocytes % 1.1 % (0-4); Lymphocytes # 1.8 K/mcL (0.6-4.6); Lymphocytes % 12.6 %; Mean Corpuscular HGB Conc 33.3 g/dL (31.6-35.5); Mean Corpuscular Hemoglobin 30.1 pg (28.0-33.3); Mean Corpuscular Volume 90.3 fL (83.0-100.0); Mean Platelet Volume 9.1 fL (9.4-12.4); Monocytes # 0.3 K/mcL (0.0-1.3); Neutrophils # 12.3 K/mcL (1.6-8.9); Platelet Count 323 K/mcL (140-400); Red Blood Count 4.95 M/mcL (3.82-4.97); Red Cell Distribution Width 13.4 % (11.5-14.5); Segmented Neutrophils % 84.2 %
[2016-11-30] MEDS: Doxycycline 100 MG in 0.9 % Sodium Chloride Mini Bag 100 ML IVPB SCH ×2 (05:35→17:50)
[2016-11-30] MEDS: *HR* Methadone 10 MG TABLET PO SCH ×4 (05:35→21:28)
[2016-11-30] MEDS: MethylPREDNISolone 40 MG/ML VIAL IVP SCH ×3 (05:35→17:50)
[2016-11-30] MEDS ORDERED: *HR* Enoxaparin 40 MG/0.4 ML SYRINGE SQ SCH (06:00)
[2016-11-30] MEDS ORDERED: Doxycycline 200 MG in 0.9 % Sodium Chloride 250 ML IVPB SCH (06:00)
[2016-11-30] MEDS: Furosemide 40 MG TABLET PO SCH ×2 (08:47→23:06)
[2016-11-30] MEDS: Metoprolol XL (24 HR) Succ 50 MG TAB.ER.24H PO SCH (08:47)
[2016-11-30] MEDS: *HR* Rivaroxaban 10 MG TABLET PO SCH (08:48)
[2016-11-30] MEDS: *HR* OxyCODONE/APAP 10/325 TABLET PO PRN ×2 (11:58→17:53)
--- NOTE | 2016-11-30 14:22 | Electrocardiograph Report ---
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
--- NOTE | 2016-11-30 16:41 | Internal Med Progress Note ---
Date of Encounter: 11/30/16 Time of Encounter: 16:39 - Assessment and plan (1) Acute exacerbation of chronic obstructive airways disease Current Visit: Yes Status: Acute Assessment and plan: Continue IV antibiotic and IV steroid treatment but she is on Solu-Medrol 40 every 6 hours she is also on IV Levaquin. (2) Morbid obesity with BMI of 50.0-59.9, adult Current Visit: No Status: Acute (3) Acute pulmonary embolism Current Visit: No Status: Acute Assessment and plan: On anticoagulation Qualifiers: Pulmonary embolism type: other Acute cor pulmonale presence: without acute cor pulmonale Qualified Code(s): I26.99 - Other pulmonary embolism without acute cor pulmonale (4) Atrial fibrillation with rapid ventricular response Current Visit: No Status: Acute Assessment and plan: Rate controlled on anticoagulation - Subjective Interval history: Patient was recently admitted for COPD but left AMA. She has returned with the same symptoms of dyspnea and cough. She has been placed on IV Levaquin and IV steroids med with gradual improvement. Still short of breath. The chest pain or cough or fever. - Constitutional Vitals: Temp Pulse Resp BP Pulse Ox 98.5 F 65 18 148/100 93 11/30/16 15:22 11/30/16 15:22 11/30/16 16:00 11/30/16 16:00 11/30/16 16:00 General appearance: Present: A&O X 3, morbidly obese, no acute distress, answers questions appropriately - Head Head exam: Present: atraumatic, normocephalic - Eye Eye exam: Present: PERRL, conjuntiva pink, sclera anicteric Pupils: Present: PERRL - Neck Neck exam general surgery: Present: supple, trachea midline. Absent: lymphadenopathy - Respiratory Respiratory exam: Present: decreased breath sounds, rhonchi, wheezes. Absent: accessory muscle use, rales - Cardiovascular Cardiovascular exam: Present: RRR, +S1, +S2. Absent: diastolic murmur, gallop, rubs, systolic murmur - GI/Abdominal GI/Abdominal exam: Present: normal bowel sounds, soft, no peritoneal signs. Absent: distended, tenderness - Extremities Exam Extremities exam: Present: warm, radial pulses palpable and symmetrical. Absent : calf tenderness, cyanotic, pedal edema - Neurological Exam Neurological exam: Present: CN II-XII intact, oriented X3, no focal deficits. Absent: pronater drift, facial droop, speech deficit - Skin Skin exam: Present: dry, intact Internal Medicine: Result - Labs CBC & Chem 7: 11/30/16 05:03 11/30/16 05:03 Labs: Short CBC 11/30/16 Range/Units 05:03 WBC 14.6 H D (4.3-11.1) K/mcL Hgb 14.9 (11.5-15.4) g/dL Hct 44.7 (35.3-44.9) % Plt Count 323 (140-400) K/mcL Neutrophils # 12.3 H (1.6-8.9) K/mcL BMP 11/30/16 05:03 Sodium 138 Potassium 4.0 Chloride 106 Carbon Dioxide 19 BUN 27 H Creatinine 1.17 H Glucose 131 H Calcium 9.1 Consult Discharge Plan - Plan Referrals: Kian Croft MD [Primary Care Provider] -
[2016-11-30] MEDS: diazePAM 10 MG TABLET PO PRN (21:27)
[2016-11-30] MEDS: rOPINIRole 0.25 MG TABLET PO SCH (21:27)
[2016-11-30] MEDS: Azithromycin 500 MG in D5% in Water 250 ML IVPB SCH (21:34)
[2016-12-01] MEDS: MethylPREDNISolone 40 MG/ML VIAL IVP SCH ×5 (00:58→22:12)
[2016-12-01] MEDS: *HR* OxyCODONE/APAP 10/325 TABLET PO PRN ×3 (01:00→17:29)
[2016-12-01] MEDS: Ipratropium/Albuterol Neb 3 ML IH SCH ×4 (03:50→23:03)
[2016-12-01 04:30] LABS: Hematocrit 45.6 % (35.3-44.9); Mean Corpuscular HGB Conc 32.9 g/dL (31.6-35.5); Mean Corpuscular Hemoglobin 29.4 pg (28.0-33.3); Mean Corpuscular Volume 89.4 fL (83.0-100.0); Mean Platelet Volume 8.9 fL (9.4-12.4); Neutrophils # 22.1 K/mcL (1.6-8.9); Platelet Count 369 K/mcL (140-400); Red Cell Distribution Width 13.3 % (11.5-14.5)
[2016-12-01 04:43] LABS: BUN/Creatinine Ratio 27 (6-26); Blood Urea Nitrogen 32 mg/dL (7-20); Calcium 9.2 mg/dL (8.6-10.8); Carbon Dioxide 23 mEq/L (19-29); Chloride 104 mEq/L (98-109); Glucose 122 mg/dL (70-99); Osmolality,Calculated 296 (280-300); Sodium 139 mEq/L (136-145); eGFR For African Americans > 60 (> 60); eGFR For Non-African Americans 51 (> 60)
[2016-12-01 05:01] LABS: Lymphocytes # 2.5 K/mcL (0.6-4.6); Monocytes # 0.5 K/mcL (0.0-1.3); Platelet Estimate Normal (Normal)
[2016-12-01] MEDS: Doxycycline 100 MG in 0.9 % Sodium Chloride Mini Bag 100 ML IVPB SCH ×2 (06:29→17:26)
[2016-12-01] MEDS: *HR* Methadone 10 MG TABLET PO SCH ×3 (06:30→22:13)
[2016-12-01] MEDS: Furosemide 40 MG TABLET PO SCH ×2 (08:29→22:13)
[2016-12-01] MEDS: *HR* Rivaroxaban 10 MG TABLET PO SCH (08:29)
[2016-12-01] MEDS: Metoprolol XL (24 HR) Succ 50 MG TAB.ER.24H PO SCH (08:33)
[2016-12-01] MEDS: Azithromycin 500 MG in D5% in Water 250 ML IVPB SCH (22:12)
[2016-12-01] MEDS: rOPINIRole 0.25 MG TABLET PO SCH (22:13)
[2016-12-02] MEDS: Ipratropium/Albuterol Neb 3 ML IH SCH ×4 (04:33→22:54)
[2016-12-02 05:26] LABS: Red Cell Distribution Width 13.2 % (11.5-14.5)
[2016-12-02 05:28] LABS: Basophils % 0.2 %; Hematocrit 45.7 % (35.3-44.9); Hemoglobin 15.6 g/dL (11.5-15.4); Immature Granulocytes % 1.4 % (0-4); Immature Platelets 1.8 % (1.1-6.1); Lymphocytes # 1.7 K/mcL (0.6-4.6); Lymphocytes % 6.5 %; Mean Corpuscular HGB Conc 34.1 g/dL (31.6-35.5); Mean Corpuscular Hemoglobin 30.7 pg (28.0-33.3); Mean Platelet Volume 9.1 fL (9.4-12.4); Monocytes # 0.5 K/mcL (0.0-1.3); Monocytes % 1.9 %; Neutrophils # 23.9 K/mcL (1.6-8.9); Platelet Count 355 K/mcL (140-400); Red Blood Count 5.08 M/mcL (3.82-4.97)
[2016-12-02] MEDS: MethylPREDNISolone 40 MG/ML VIAL IVP SCH ×3 (05:55→17:10)
[2016-12-02] MEDS: Doxycycline 100 MG in 0.9 % Sodium Chloride Mini Bag 100 ML IVPB SCH ×2 (05:55→17:10)
[2016-12-02] MEDS: *HR* Methadone 10 MG TABLET PO SCH ×3 (05:56→21:27)
[2016-12-02 06:18] LABS: Basophils # 0.1 K/mcL (0.0-0.2)
[2016-12-02 06:20] LABS: Platelet Estimate Marked Decrease (Normal)
[2016-12-02 06:25] LABS: Albumin 3.2 g/dL (3.5-5.0); Albumin/Globulin Ratio 0.8 (1.1-2.2); Bilirubin,Total 0.2 mg/dL (0.2-1.2); Calcium 9.2 mg/dL (8.6-10.8); Globulin 3.9 g/dL (2.4-3.5); Total Protein 7.1 g/dL (6.0-8.3)
[2016-12-02 06:35] LABS: Potassium 2.8 mEq/L (3.5-4.5)
[2016-12-02] MEDS: *HR* Rivaroxaban 10 MG TABLET PO SCH (08:27)
[2016-12-02] MEDS: Metoprolol XL (24 HR) Succ 50 MG TAB.ER.24H PO SCH (08:27)
[2016-12-02] MEDS ORDERED: Potassium Chloride 40 MEQ, Lidocaine 1% 2 ML in D5% in Water 500 ML IVPB ONE (08:35)
[2016-12-02 09:06] LABS: Bilirubin,Urine Negative (Negative); Blood,Urine Negative (Negative); Clarity,Urine Clear (Clear); Color,Urine Yellow (Yellow); Glucose,Urine (UA) Normal (Normal); Ketones,Urine Negative (Negative); Leukocyte Esterase,Urine Moderate (Negative); Nitrite,Urine Negative (Negative); Protein,Urine Negative (Neg-Trace); Urobilinogen,Urine Normal (Normal)
[2016-12-02 09:09] LABS: Bacteria,Urine None Seen per hpf (None-Few); Hyaline Casts,Urine None Seen per lpf (None-Few); Squamous Epithelial Cell,Urine Many per lpf (None-Few); WBC,Urine 15-30 per hpf (0-3)
[2016-12-02] MEDS: *HR* OxyCODONE/APAP 10/325 TABLET PO PRN ×2 (09:15→15:28)
[2016-12-02 15:41] LABS: Alanine Aminotransferase 22 Units/L (0-55); Albumin 3.3 g/dL (3.5-5.0); Albumin/Globulin Ratio 0.9 (1.1-2.2); Alkaline Phosphatase 73 Units/L (38-126); Aspartate Amino Transferase 17 Units/L (5-34); Bilirubin,Total 0.3 mg/dL (0.2-1.2); Globulin 3.7 g/dL (2.4-3.5)
--- NOTE | 2016-12-02 15:41 | Internal Med Progress Note ---
Date of Encounter: 12/02/16 Time of Encounter: 15:40 - Assessment and plan (1) Acute exacerbation of chronic obstructive airways disease Current Visit: Yes Status: Acute (2) Morbid obesity with BMI of 50.0-59.9, adult Current Visit: No Status: Acute (3) Acute pulmonary embolism Current Visit: No Status: Acute Qualifiers: Pulmonary embolism type: other Acute cor pulmonale presence: without acute cor pulmonale Qualified Code(s): I26.99 - Other pulmonary embolism without acute cor pulmonale (4) Atrial fibrillation with rapid ventricular response Current Visit: No Status: Acute - Subjective Interval history: Patient was recently admitted for COPD but left AMA. She has returned with the same symptoms of dyspnea and cough. She has been placed on IV Levaquin and IV steroids med nebulizer with gradual improvement. Patient breathing has improved she is without oxygen now and lung examination showed relatively clear lungs. It was noted that her creatinine is up and potassium is down. She is on Lasix and hydrochlorothiazide for her leg edema. Her echocardiogram showed EF of 60% with good LV systolic function. For now her diuretics will be on hold gentle IV hydration and potassium supplementation with repeat CBC and CMP in the morning. Overall patient has improved. We will start tapering off IV steroids from tomorrow - Constitutional Vitals: Temp Pulse Resp BP Pulse Ox 98.6 F 70 16 156/86 94 12/02/16 14:55 12/02/16 14:55 12/02/16 14:55 12/02/16 14:55 12/02/16 14:55 General appearance: Present: A&O X 3, morbidly obese, no acute distress, answers questions appropriately - Head Head exam: Present: atraumatic, normocephalic - Eye Eye exam: Present: PERRL, conjuntiva pink, sclera anicteric Pupils: Present: PERRL - Neck Neck exam general surgery: Present: supple, trachea midline. Absent: lymphadenopathy - Respiratory Respiratory exam: Present: CTAB. Absent: accessory muscle use, rales, rhonchi, wheezes - Cardiovascular Cardiovascular exam: Present: RRR, +S1, +S2. Absent: diastolic murmur, gallop, rubs, systolic murmur - GI/Abdominal GI/Abdominal exam: Present: normal bowel sounds, soft, no peritoneal signs. Absent: distended, tenderness - Extremities Exam Extremities exam: Present: warm, radial pulses palpable and symmetrical. Absent : calf tenderness, cyanotic, pedal edema - Neurological Exam Neurological exam: Present: CN II-XII intact, oriented X3, no focal deficits. Absent: pronater drift, facial droop, speech deficit - Skin Skin exam: Present: dry, intact Internal Medicine: Result - Labs CBC & Chem 7: 12/02/16 05:12 12/02/16 05:12 Labs: Short CBC 12/02/16 Range/Units 05:12 WBC 26.6 H (4.3-11.1) K/mcL Hgb 15.6 H (11.5-15.4) g/dL Hct 45.7 H (35.3-44.9) % Plt Count 355 (140-400) K/mcL Neutrophils # 23.9 H (1.6-8.9) K/mcL BMP 12/01/16 12/02/16 04:05 05:12 Sodium 139 138 Potassium 4.0 2.8 L D Chloride 104 98 Carbon Dioxide 23 25 BUN 32 H 39 H Creatinine 1.18 H 1.61 H Glucose 122 H 195 H Calcium 9.2 9.2 Liver Function 12/02/16 Range/Units 05:12 Total Bilirubin 0.2 (0.2-1.2) mg/dL AST 11 (5-34) Units/L ALT 24 (0-55) Units/L Alkaline Phosphatase 80 (38-126) Units/L Albumin 3.2 L (3.5-5.0) g/dL Urine 12/02/16 Range/Units 08:50 Urine Color Yellow (Yellow) Urine Clarity Clear (Clear) Urine pH 6.0 (5.0-8.0) pH Units Ur Specific [facility] 1.020 (1.010-1.025) Urine Protein Negative (Neg-Trace) mg/dL Urine Glucose (UA) Normal (Normal) mg/dL - Impressions Impressions Chest X-Ray 12/02/16 08:39 IMPRESSION: No acute process. D/ / Musa Hernandez MD / Musa Hernandez MD Interpreting Provider: Musa Hernandez MD Consult Discharge Plan - Plan Referrals: Croft,Langston, MD [Primary Care Provider] - 12/08/16 5:00 pm
[2016-12-02] MEDS: Azithromycin 500 MG in D5% in Water 250 ML IVPB SCH (21:26)
[2016-12-02] MEDS: rOPINIRole 0.25 MG TABLET PO SCH (21:27)
[2016-12-03] MEDS: MethylPREDNISolone 40 MG/ML VIAL IVP SCH ×4 (00:26→23:25)
[2016-12-03] MEDS: *HR* OxyCODONE/APAP 10/325 TABLET PO PRN ×3 (00:26→16:07)
[2016-12-03 03:45] LABS: Basophils % 0.2 %; Hematocrit 47.1 % (35.3-44.9); Hemoglobin 15.4 g/dL (11.5-15.4); Lymphocytes # 1.5 K/mcL (0.6-4.6); Lymphocytes % 6.4 %; Mean Corpuscular HGB Conc 32.7 g/dL (31.6-35.5); Mean Corpuscular Hemoglobin 29.6 pg (28.0-33.3); Mean Corpuscular Volume 90.6 fL (83.0-100.0); Monocytes # 0.9 K/mcL (0.0-1.3); Monocytes % 3.7 %; Neutrophils # 20.7 K/mcL (1.6-8.9); Platelet Count 353 K/mcL (140-400); Red Cell Distribution Width 13.1 % (11.5-14.5); Segmented Neutrophils % 88.7 %
[2016-12-03 03:57] LABS: Albumin 3.1 g/dL (3.5-5.0); Albumin/Globulin Ratio 0.8 (1.1-2.2); Bilirubin,Total 0.3 mg/dL (0.2-1.2); Calcium 9.1 mg/dL (8.6-10.8); Globulin 3.8 g/dL (2.4-3.5); Potassium 3.3 mEq/L (3.5-4.5); Total Protein 6.9 g/dL (6.0-8.3)
[2016-12-03] MEDS: Ipratropium/Albuterol Neb 3 ML IH SCH ×4 (05:57→21:19)
[2016-12-03] MEDS: *HR* Methadone 10 MG TABLET PO SCH ×3 (06:11→23:25)
[2016-12-03] MEDS: Doxycycline 100 MG in 0.9 % Sodium Chloride Mini Bag 100 ML IVPB SCH ×2 (06:12→17:12)
[2016-12-03] MEDS: Metoprolol XL (24 HR) Succ 50 MG TAB.ER.24H PO SCH (08:21)
[2016-12-03] MEDS: *HR* Rivaroxaban 10 MG TABLET PO SCH (08:21)
[2016-12-03] MEDS ORDERED: Ampicillin 500 MG in 0.9 % Sodium Chloride Mini Bag 100 ML IVPB SCH (12:00)
--- NOTE | 2016-12-03 12:01 | Internal Med Progress Note ---
Date of Encounter: 12/03/16 Time of Encounter: 11:58 - Assessment and plan (1) UTI (urinary tract infection) Current Visit: Yes Status: Acute Assessment and plan: Urine culture shows enterococcus sensitivities pending has increased white count entry on IV doxycycline Qualifiers: Urinary tract infection type: site unspecified Hematuria presence: without hematuria Qualified Code(s): N39.0 - Urinary tract infection, site not specified (2) Acute on chronic kidney failure Current Visit: Yes Status: Acute Assessment and plan: As Lasix is on hold renal function not improving Qualifiers: Acute renal failure type: unspecified Chronic kidney disease stage: stage 3 (moderate) Qualified Code(s): N17.9 - Acute kidney failure, unspecified; N18.3 - Chronic kidney disease, stage 3 (moderate) (3) Acute pulmonary embolism Current Visit: No Status: Acute Assessment and plan: On anticoagulation Qualifiers: Pulmonary embolism type: other Acute cor pulmonale presence: without acute cor pulmonale Qualified Code(s): I26.99 - Other pulmonary embolism without acute cor pulmonale (4) Acute exacerbation of chronic obstructive airways disease Current Visit: Yes Status: Acute (5) Atrial fibrillation with rapid ventricular response Current Visit: No Status: Acute Assessment and plan: Rate control and on blood thinner (6) Hypokalemia Current Visit: Yes Status: Acute Assessment and plan: Supplement and recheck (7) Morbid obesity with BMI of 50.0-59.9, adult Current Visit: No Status: Acute - Subjective Interval history: Patient was recently admitted for COPD but left AMA. She has returned with the same symptoms of dyspnea and cough. She has been placed on IV Doxicycline and Zithromax and IV steroids med nebulizer with gradual improvement. Patient breathing has improved she is without oxygen now and lung examination showed relatively clear lungs. We will start tapering steroids and see if she tolerates it. DC zithromax. Urine cluture shows enterococcus ; sensitivity is pending. However she is mounding white cell count which could be secondary to steroids. She keeps saying that she does not feel better We will wait to see if we need to add 1 more antibiotic as she continues to say that she does not feel well and with the choice of doxycycline and Zithromax both are not known to cover enterococcus. Add ampicillin It was noted that her creatinine is up and potassium is down. She is on Lasix and hydrochlorothiazide for her leg edema. Her echocardiogram showed EF of 60% with good LV systolic function. For now her diuretics will be on hold gentle IV hydration and potassium supplementation with repeat CBC and CMP in the morning. Overall patient has improved. We will start tapering off IV steroids and Solu-Medrol will be 40 mg IV every 8 - Constitutional Vitals: Temp Pulse Resp BP Pulse Ox 97.4 F L 100 14 132/94 94 12/03/16 11:28 12/03/16 11:28 12/03/16 11:28 12/03/16 11:28 12/03/16 11:28 General appearance: Present: A&O X 3, morbidly obese, no acute distress, answers questions appropriately - Head Head exam: Present: atraumatic, normocephalic - Eye Eye exam: Present: PERRL, conjuntiva pink, sclera anicteric Pupils: Present: PERRL - Neck Neck exam general surgery: Present: supple, trachea midline. Absent: lymphadenopathy - Respiratory Respiratory exam: Present: CTAB. Absent: accessory muscle use, rales, rhonchi, wheezes - Cardiovascular Cardiovascular exam: Present: RRR, +S1, +S2. Absent: diastolic murmur, gallop, rubs, systolic murmur - GI/Abdominal GI/Abdominal exam: Present: normal bowel sounds, soft, no peritoneal signs. Absent: distended, tenderness - Extremities Exam Extremities exam: Present: warm, radial pulses palpable and symmetrical. Absent : calf tenderness, cyanotic, pedal edema - Neurological Exam Neurological exam: Present: CN II-XII intact, oriented X3, no focal deficits. Absent: pronater drift, facial droop, speech deficit - Skin Skin exam: Present: dry, intact Internal Medicine: Result - Labs CBC & Chem 7: 12/03/16 03:40 12/03/16 03:40 Labs: Short CBC 12/03/16 Range/Units 03:40 WBC 23.3 H (4.3-11.1) K/mcL Hgb 15.4 (11.5-15.4) g/dL Hct 47.1 H (35.3-44.9) % Plt Count 353 (140-400) K/mcL Neutrophils # 20.7 H (1.6-8.9) K/mcL BMP 12/01/16 12/03/16 04:05 03:40 Sodium 139 136 Potassium 4.0 3.3 L Chloride 104 98 Carbon Dioxide 23 29 BUN 32 H 43 H Creatinine 1.18 H 1.35 H Glucose 122 H 146 H Calcium 9.2 9.1 Liver Function 12/01/16 12/03/16 Range/Units 04:05 03:40 Total Bilirubin 0.3 0.3 (0.2-1.2) mg/dL AST 17 14 (5-34) Units/L ALT 22 27 (0-55) Units/L Alkaline Phosphatase 73 79 (38-126) Units/L Albumin 3.3 L 3.1 L (3.5-5.0) g/dL Consult Discharge Plan - Plan Referrals: Kian Croft MD [Primary Care Provider] - 12/08/16 5:00 pm
[2016-12-03] MEDS: Ampicillin 500 MG in 0.9 % Sodium Chloride Mini Bag 100 ML IVPB SCH ×3 (13:36→23:26)
[2016-12-03] MEDS: rOPINIRole 0.25 MG TABLET PO SCH (20:30)
[2016-12-04] MEDS: *HR* OxyCODONE/APAP 10/325 TABLET PO PRN ×4 (02:35→23:51)
[2016-12-04] MEDS: Doxycycline 100 MG in 0.9 % Sodium Chloride Mini Bag 100 ML IVPB SCH ×2 (04:59→19:23)
[2016-12-04 05:13] LABS: Basophils % 0.2 %; Hematocrit 47.8 % (35.3-44.9); Hemoglobin 15.5 g/dL (11.5-15.4); Immature Granulocytes % 1.3 % (0-4); Lymphocytes # 1.5 K/mcL (0.6-4.6); Lymphocytes % 6.8 %; Mean Corpuscular HGB Conc 32.4 g/dL (31.6-35.5); Mean Corpuscular Hemoglobin 29.5 pg (28.0-33.3); Mean Corpuscular Volume 90.9 fL (83.0-100.0); Mean Platelet Volume 9.1 fL (9.4-12.4); Monocytes # 0.9 K/mcL (0.0-1.3); Monocytes % 4.1 %; Neutrophils # 19.6 K/mcL (1.6-8.9); Platelet Count 343 K/mcL (140-400); Red Blood Count 5.26 M/mcL (3.82-4.97); Red Cell Distribution Width 13.1 % (11.5-14.5); Segmented Neutrophils % 87.6 %
[2016-12-04] MEDS: Ipratropium/Albuterol Neb 3 ML IH SCH ×4 (05:15→22:31)
[2016-12-04] MEDS: *HR* Methadone 10 MG TABLET PO SCH ×3 (05:52→21:07)
[2016-12-04] MEDS: Ampicillin 500 MG in 0.9 % Sodium Chloride Mini Bag 100 ML IVPB SCH ×4 (05:53→23:52)
[2016-12-04 06:15] LABS: Bilirubin,Total 0.5 mg/dL (0.2-1.2); Calcium 8.9 mg/dL (8.6-10.8); Potassium 4.3 mEq/L (3.5-4.5); Total Protein 6.7 g/dL (6.0-8.3)
[2016-12-04 07:34] LABS: Albumin 3.5 g/dL (3.5-5.0); Albumin/Globulin Ratio 1.1 (1.1-2.2); Globulin 3.2 g/dL (2.4-3.5)
[2016-12-04] MEDS: Metoprolol XL (24 HR) Succ 50 MG TAB.ER.24H PO SCH (07:41)
[2016-12-04] MEDS: *HR* Rivaroxaban 10 MG TABLET PO SCH (08:42)
[2016-12-04] MEDS: MethylPREDNISolone 40 MG/ML VIAL IVP SCH (08:42)
[2016-12-04] MEDS ORDERED: Ibuprofen 600 MG TABLET PO PRN (13:16)
--- NOTE | 2016-12-04 15:43 | Internal Med Progress Note ---
Date of Encounter: 12/04/16 Time of Encounter: 15:41 - Assessment and plan (1) UTI (urinary tract infection) Current Visit: Yes Status: Acute Qualifiers: Urinary tract infection type: site unspecified Hematuria presence: without hematuria Qualified Code(s): N39.0 - Urinary tract infection, site not specified (2) Acute on chronic kidney failure Current Visit: Yes Status: Acute Qualifiers: Acute renal failure type: unspecified Chronic kidney disease stage: stage 3 (moderate) Qualified Code(s): N17.9 - Acute kidney failure, unspecified; N18.3 - Chronic kidney disease, stage 3 (moderate) (3) Acute pulmonary embolism Current Visit: No Status: Acute Qualifiers: Pulmonary embolism type: other Acute cor pulmonale presence: without acute cor pulmonale Qualified Code(s): I26.99 - Other pulmonary embolism without acute cor pulmonale (4) Acute exacerbation of chronic obstructive airways disease Current Visit: Yes Status: Acute (5) Atrial fibrillation with rapid ventricular response Current Visit: No Status: Acute (6) Hypokalemia Current Visit: Yes Status: Acute (7) Morbid obesity with BMI of 50.0-59.9, adult Current Visit: No Status: Acute - Subjective Interval history: Patient was recently admitted for COPD but left AMA. She has returned with the same symptoms of dyspnea and cough. She has been placed on IV Doxicycline and Zithromax and IV steroids med nebulizer with gradual improvement. Patient breathing has improved she is without oxygen now and lung examination showed relatively clear lungs. IV steroids. An oral prednisone and started.. DC zithromax. Urine cluture shows enterococcus ; sensitivity is pending. However she is mounding white cell count which could be secondary to steroids. She keeps saying that she does not feel better We will wait to see if we need to add 1 more antibiotic as she continues to say that she does not feel well and with the choice of doxycycline and Zithromax both are not known to cover enterococcus. Add ampicillin It was noted that her creatinine is up and potassium is down. She is on Lasix and hydrochlorothiazide for her leg edema. Her echocardiogram showed EF of 60% with good LV systolic function. For now her diuretics will be on hold gentle IV hydration and potassium supplementation with repeat CBC and CMP in the morning. Overall patient has improved. Patient was offered to be discharged but she wants to stay one more day. She can be discharged tomorrow - Constitutional Vitals: Temp Pulse Resp BP Pulse Ox 98.1 F 68 15 132/87 96 12/04/16 11:18 12/04/16 11:18 12/04/16 11:18 12/04/16 11:18 12/04/16 11:18 General appearance: Present: A&O X 3, morbidly obese, no acute distress, answers questions appropriately - Head Head exam: Present: atraumatic, normocephalic - Eye Eye exam: Present: PERRL, conjuntiva pink, sclera anicteric Pupils: Present: PERRL - Neck Neck exam general surgery: Present: supple, trachea midline. Absent: lymphadenopathy - Respiratory Respiratory exam: Present: CTAB. Absent: accessory muscle use, rales, rhonchi, wheezes - Cardiovascular Cardiovascular exam: Present: RRR, +S1, +S2. Absent: diastolic murmur, gallop, rubs, systolic murmur - GI/Abdominal GI/Abdominal exam: Present: normal bowel sounds, soft, no peritoneal signs. Absent: distended, tenderness - Extremities Exam Extremities exam: Present: warm, radial pulses palpable and symmetrical. Absent : calf tenderness, cyanotic, pedal edema - Neurological Exam Neurological exam: Present: CN II-XII intact, oriented X3, no focal deficits. Absent: pronater drift, facial droop, speech deficit - Skin Skin exam: Present: dry, intact Internal Medicine: Result - Labs CBC & Chem 7: 12/04/16 04:53 12/04/16 04:53 Labs: Short CBC 12/04/16 Range/Units 04:53 WBC 22.4 H (4.3-11.1) K/mcL Hgb 15.5 H (11.5-15.4) g/dL Hct 47.8 H (35.3-44.9) % Plt Count 343 (140-400) K/mcL Neutrophils # 19.6 H (1.6-8.9) K/mcL BMP 12/04/16 04:53 Sodium 138 Potassium 4.3 D Chloride 103 Carbon Dioxide 27 BUN 39 H Creatinine 1.23 H Glucose 129 H Calcium 8.9 Liver Function 12/04/16 Range/Units 04:53 Total Bilirubin 0.5 (0.2-1.2) mg/dL AST 19 (5-34) Units/L ALT 39 (0-55) Units/L Alkaline Phosphatase 72 (38-126) Units/L Albumin 3.5 (3.5-5.0) g/dL Consult Discharge Plan - Plan Referrals: Kian Croft MD [Primary Care Provider] - 12/08/16 5:00 pm
[2016-12-04] MEDS: predniSONE 20 MG TABLET PO SCH (17:45)
[2016-12-04] MEDS: rOPINIRole 0.25 MG TABLET PO SCH (21:07)
[2016-12-05] MEDS: Ipratropium/Albuterol Neb 3 ML IH SCH ×4 (04:17→20:33)
[2016-12-05] MEDS: Doxycycline 100 MG in 0.9 % Sodium Chloride Mini Bag 100 ML IVPB SCH (05:58)
[2016-12-05] MEDS: *HR* Methadone 10 MG TABLET PO SCH ×3 (05:58→21:10)
[2016-12-05 06:13] LABS: Basophils % 0.2 %; Immature Granulocytes % 1.3 % (0-4); Mean Platelet Volume 9.4 fL (9.4-12.4); Red Cell Distribution Width 13.2 % (11.5-14.5)
[2016-12-05 06:14] LABS: Basophils # 0.1 K/mcL (0.0-0.2); Hematocrit 47.4 % (35.3-44.9); Hemoglobin 15.1 g/dL (11.5-15.4); Lymphocytes # 2.8 K/mcL (0.6-4.6); Lymphocytes % 10.6 %; Mean Corpuscular HGB Conc 31.9 g/dL (31.6-35.5); Mean Corpuscular Hemoglobin 30.1 pg (28.0-33.3); Mean Corpuscular Volume 94.4 fL (83.0-100.0); Monocytes # 1.6 K/mcL (0.0-1.3); Monocytes % 5.9 %; Neutrophils # 21.7 K/mcL (1.6-8.9); Platelet Count 282 K/mcL (140-400); Red Blood Count 5.02 M/mcL (3.82-4.97)
[2016-12-05 06:23] LABS: Alanine Aminotransferase 34 Units/L (0-55); Albumin 2.7 g/dL (3.5-5.0); Albumin/Globulin Ratio 0.8 (1.1-2.2); Alkaline Phosphatase 62 Units/L (38-126); Aspartate Amino Transferase 21 Units/L (5-34); BUN/Creatinine Ratio 36 (6-26); Bilirubin,Total 0.5 mg/dL (0.2-1.2); Blood Urea Nitrogen 38 mg/dL (7-20); Carbon Dioxide 22 mEq/L (19-29); Chloride 109 mEq/L (98-109); Globulin 3.3 g/dL (2.4-3.5); Glucose 97 mg/dL (70-99); Osmolality,Calculated 299 (280-300); Potassium 4.4 mEq/L (3.5-4.5); Sodium 140 mEq/L (136-145); eGFR For African Americans > 60 (> 60); eGFR For Non-African Americans 57 (> 60)
[2016-12-05 06:45] LABS: Platelet Estimate Normal (Normal)
[2016-12-05] MEDS: *HR* OxyCODONE/APAP 10/325 TABLET PO PRN ×2 (08:29→17:56)
[2016-12-05] MEDS: Ampicillin 500 MG in 0.9 % Sodium Chloride Mini Bag 100 ML IVPB SCH ×2 (08:29→12:47)
[2016-12-05] MEDS: *HR* Rivaroxaban 10 MG TABLET PO SCH (08:29)
[2016-12-05] MEDS: predniSONE 20 MG TABLET PO SCH ×2 (08:29→16:01)
[2016-12-05] MEDS: Metoprolol XL (24 HR) Succ 50 MG TAB.ER.24H PO SCH (08:29)
--- NOTE | 2016-12-05 13:38 | Discharge Summary ---
Date of Encounter: 12/05/16 Time of Encounter: 13:30 - Discharge Diagnosis (1) Acute exacerbation of chronic obstructive airways disease Priority: Primary Status: Acute (2) UTI (urinary tract infection) Priority: Secondary Status: Acute Qualifiers: Urinary tract infection type: site unspecified Hematuria presence: without hematuria Qualified Code(s): N39.0 - Urinary tract infection, site not specified (3) Acute on chronic kidney failure Priority: Secondary Status: Acute Qualifiers: Acute renal failure type: unspecified Chronic kidney disease stage: stage 3 (moderate) Qualified Code(s): N17.9 - Acute kidney failure, unspecified; N18.3 - Chronic kidney disease, stage 3 (moderate) (4) Acute pulmonary embolism Priority: Secondary Status: Acute Qualifiers: Pulmonary embolism type: other Acute cor pulmonale presence: without acute cor pulmonale Qualified Code(s): I26.99 - Other pulmonary embolism without acute cor pulmonale (5) Atrial fibrillation with rapid ventricular response Priority: Secondary Status: Acute (6) Hypokalemia Priority: Secondary Status: Acute (7) Morbid obesity with BMI of 50.0-59.9, adult Priority: Secondary Status: Acute - Discharge Medications Prescriptions: Ipratropium/Albuterol Neb [Duoneb] 3 ml IH TID #90 inh Nitrofurantoin (BID) [Macrobid] 100 mg PO BIDWM #14 tab predniSONE [PredniSONE] 10 mg PO DAILY #25 tab Home Medications: Methadone 20 mg PO Q8HR 11/28/16 [History] Oxycodone HCl/Acetaminophen [Percocet 10-325 mg Tablet] 1 each PO Q4-6H PRN 01/04 [History] Albuterol Sulfate [Albuterol Inhaler] 2 puff IH Q4H PRN 11/29/16 [History] Amlodipine Besylate 2.5 mg PO DAILY 11/29/16 [History] Ammonium Lactate [Sherice-Hydrolac] 1 appl TP BID 11/29/16 [History] Aripiprazole [Abilify Maintena] 300 mg IM Q28D 11/29/16 [History] Chlorthalidone 25 mg PO DAILY 11/29/16 [History] Ciclopirox Olamine [Ciclopirox] 1 appl TP BID 11/29/16 [History] Ergocalciferol (VITAMIN D2) [Vitamin D2] 50,000 unit PO 2XW 11/29/16 [History] Fluticasone/Salmeterol [Advair 250-50 Diskus] 1 each IH BID 11/29/16 [History] Metoprolol Succinate 100 mg PO DAILY 11/29/16 [History] Potassium Chloride [Klor-Con 10] 10 meq PO DAILY 11/29/16 [History] Promethazine HCl 12.5 mg PO Q6H PRN 11/29/16 [History] Rivaroxaban [Xarelto] 20 mg PO DAILY 11/29/16 [History] Sertraline [Zoloft] 100 mg PO DAILY 11/29/16 [History] diazePAM [Valium] 10 mg PO BID 11/29/16 [History] predniSONE [PredniSONE] See Taper PO DAILY 11/29/16 [History] rOPINIRole [Requip] 0.25 mg PO HS 11/29/16 [History] Furosemide [Lasix] 40 mg PO DAILY #0 12/06/16 [Rx] Ipratropium/Albuterol Neb [Duoneb] 3 ml IH TID #90 inh 12/06/16 [Rx] Nitrofurantoin (BID) [Macrobid] 100 mg PO BIDWM #14 tab 12/06/16 [Rx] predniSONE [PredniSONE] 10 mg PO DAILY #25 tab 12/06/16 [Rx] Allergies/Adverse Reactions: 3 Allergy/AdvReac Type Severity Reaction Status Date / Time morphine AdvReac Hallucinati Verified 11/28/16 15:34 ng Date of admission: 11/29/16 21:06 Primary care physician: Kian Croft MD Consults: 11/30/16 14:08 Consult to [employer] [CONS] Routine Reason for SW Consult: re-admit Discharging clinician: Philip Lawton Anticipated date of discharge: 12/05/16 - Patient Status Disposition: Home, Self-Care Condition: Good Overall status at discharge: patient is progressing back to baseline - Discharge Instructions Instructions: Heart Failure (DC), Urinary Tract Infection in Women (DC), Chronic Kidney Disease (DC), Hypokalemia (DC), Chronic Obstructive Pulmonary Disease (DC), Leukocytosis (DC) Follow Up With: Kian Croft MD [Primary Care Provider] - 12/08/16 5:00 pm - Diet and Activity Activity: resume usual activities as tolerated Diet: advance to your usual diet Hospital course: Patient was recently admitted for COPD but left AMA. She has returned with the same symptoms of dyspnea and cough. She has been placed on IV Doxicycline and Zithromax and IV steroids med nebulizer with gradual improvement. Patient breathing has improved she is without oxygen now and lung examination showed clear lungs. She has tolerated oral steroids well and the frequency of nebulizer have been reduced. Since her chest x-ray was negative therefore Zithromax and doxycycline was stopped. Urine cluture shows enterococcus and therefore initially she was treated with IV ampicillin and later switched to Macrodantin. Patient had persistent leukocytosis perhaps related to steroids as there is no obvious sign of worsening infection. She remained afebrile and improved clinically. As reduce her dose of the steroid white count has also gone down and I have recommended her to get her CBC checked weekly basis for her family doctor to make sure that by the time the steroids are finished so normalized. She had an echocardiogram during this admission Her echocardiogram showed EF of 60% with good LV systolic function. Since her creatinine was quite elevated we held her Lasix and that helped in improving her creatinine. She takes a 6 for her leg edema mainly and it can be given at lower dose. Patient can be discharged home. - Time Spent with Patient Total time spent providing and/or coordinating discharge services: - Constitutional Vitals: Temp Pulse Resp BP Pulse Ox 98.2 F 66 16 143/96 95 12/05/16 11:16 12/05/16 11:16 12/05/16 11:16 12/05/16 11:16 12/05/16 11:16 General appearance: Present: A&O X 3, morbidly obese, no acute distress, answers questions appropriately
--- NOTE | 2016-12-05 13:42 | Internal Med Progress Note ---
Date of Encounter: 12/05/16 Time of Encounter: 13:38 - Assessment and plan (1) Acute exacerbation of chronic obstructive airways disease Current Visit: Yes Status: Acute (2) UTI (urinary tract infection) Current Visit: Yes Status: Acute Qualifiers: Urinary tract infection type: site unspecified Hematuria presence: without hematuria Qualified Code(s): N39.0 - Urinary tract infection, site not specified (3) Acute on chronic kidney failure Current Visit: Yes Status: Acute Qualifiers: Acute renal failure type: unspecified Chronic kidney disease stage: stage 3 (moderate) Qualified Code(s): N17.9 - Acute kidney failure, unspecified; N18.3 - Chronic kidney disease, stage 3 (moderate) (4) Acute pulmonary embolism Current Visit: No Status: Acute Qualifiers: Pulmonary embolism type: other Acute cor pulmonale presence: without acute cor pulmonale Qualified Code(s): I26.99 - Other pulmonary embolism without acute cor pulmonale (5) Atrial fibrillation with rapid ventricular response Current Visit: No Status: Acute (6) Hypokalemia Current Visit: Yes Status: Acute (7) Morbid obesity with BMI of 50.0-59.9, adult Current Visit: No Status: Acute - Subjective Interval history: Patient was recently admitted for COPD but left AMA. She has returned with the same symptoms of dyspnea and cough. She has been placed on IV Doxicycline and Zithromax and IV steroids med nebulizer with gradual improvement. Patient breathing has improved she is without oxygen now and lung examination showed relatively clear lungs. IV steroids. An oral prednisone and started.. DC zithromax. Urine cluture shows enterococcus ; sensitivity is pending. However she is mounding white cell count which could be secondary to steroids. She keeps saying that she does not feel better We will wait to see if we need to add 1 more antibiotic as she continues to say that she does not feel well and with the choice of doxycycline and Zithromax both are not known to cover enterococcus. Add ampicillin It was noted that her creatinine is up and potassium is down. She is on Lasix and hydrochlorothiazide for her leg edema. Her echocardiogram showed EF of 60% with good LV systolic function. For now her diuretics will be on hold gentle IV hydration and potassium supplementation with repeat CBC and CMP in the morning. Overall patient has improved. Patient was offered to be discharged but she wants to stay one more day. She can be discharged tomorrow 12/05 Condition does without oxygen and chest examination is quite clear. Her urine culture showed enterococcus. She is on ampicillin. Her white count is a still elevated and I suspect this is due to high-dose of steroids as she remained afebrile and a repeat chest x-ray on 2 occasions and is negative for pneumonia however patient is not convinced. As her lungs are clear to have reduced her prednisone to 20 mg daily and check an ultrasound of abdomen to rule out any gallbladder or renal involvement though I highly doubt if this is the cause. If above is negative then we can discharge her and asked her to recheck her CBC through her family doctor's office once she is off steroids to see if they have gone down nicely. I will DC IV doxycycline and ampicillin I start her on by mouth Macrodantin and reduce the frequency of nebulizer treatment. Her renal function have improved and creatinine is 1 now. Her CBC will be repeated in the morning. She is off Lasix as her creatinine was going up but it can be restarted when she goes home as she takes it only for leg edema.Her echocardiogram showed EF of 60% with good LV systolic function. - Constitutional Vitals: Temp Pulse Resp BP Pulse Ox 98.2 F 66 16 143/96 95 12/05/16 11:16 12/05/16 11:16 12/05/16 11:16 12/05/16 11:16 12/05/16 11:16 General appearance: Present: A&O X 3, morbidly obese, no acute distress, answers questions appropriately - Head Head exam: Present: atraumatic, normocephalic - Eye Eye exam: Present: PERRL, conjuntiva pink, sclera anicteric Pupils: Present: PERRL - Neck Neck exam general surgery: Present: supple, trachea midline. Absent: lymphadenopathy - Respiratory Respiratory exam: Present: CTAB. Absent: accessory muscle use, rales, rhonchi, wheezes - Cardiovascular Cardiovascular exam: Present: RRR, +S1, +S2. Absent: diastolic murmur, gallop, rubs, systolic murmur - GI/Abdominal GI/Abdominal exam: Present: normal bowel sounds, soft, no peritoneal signs. Absent: distended, tenderness - Extremities Exam Extremities exam: Present: warm, radial pulses palpable and symmetrical. Absent : calf tenderness, cyanotic, pedal edema - Neurological Exam Neurological exam: Present: CN II-XII intact, oriented X3, no focal deficits. Absent: pronater drift, facial droop, speech deficit - Skin Skin exam: Present: dry, intact Internal Medicine: Result - Labs CBC & Chem 7: 12/05/16 06:00 12/05/16 06:00 Labs: Short CBC 12/05/16 Range/Units 06:00 WBC 26.5 H (4.3-11.1) K/mcL Hgb 15.1 (11.5-15.4) g/dL Hct 47.4 H (35.3-44.9) % Plt Count 282 (140-400) K/mcL Neutrophils # 21.7 H (1.6-8.9) K/mcL BMP 12/05/16 06:00 Sodium 140 Potassium 4.4 Chloride 109 Carbon Dioxide 22 BUN 38 H Creatinine 1.07 Glucose 97 Calcium 8.0 L Liver Function 12/05/16 Range/Units 06:00 Total Bilirubin 0.5 (0.2-1.2) mg/dL AST 21 (5-34) Units/L ALT 34 (0-55) Units/L Alkaline Phosphatase 62 (38-126) Units/L Albumin 2.7 L D (3.5-5.0) g/dL - Impressions Impressions Chest X-Ray 12/05/16 07:38 IMPRESSION: No evidence of acute cardiopulmonary disease. D/ / 12/05/2016 09:23:37 Marcus Lomax MD / faisal Interpreting Provider: Marcus Lomax MD Consult Discharge Plan - Plan Referrals: Kian Croft MD [Primary Care Provider] - 12/08/16 5:00 pm
[2016-12-05] MEDS: Nitrofurantoin (BID) 100 MG CAPSULE PO SCH (17:56)
[2016-12-05] MEDS: rOPINIRole 0.25 MG TABLET PO SCH (21:09)
[2016-12-06] MEDS: *HR* OxyCODONE/APAP 10/325 TABLET PO PRN (00:01)
[2016-12-06 04:56] LABS: Basophils # 0.1 K/mcL (0.0-0.2); Basophils % 0.3 %; Hematocrit 47.1 % (35.3-44.9); Immature Granulocytes % 1.5 % (0-4); Lymphocytes # 3.9 K/mcL (0.6-4.6); Lymphocytes % 17.5 %; Mean Corpuscular HGB Conc 31.8 g/dL (31.6-35.5); Mean Corpuscular Hemoglobin 29.6 pg (28.0-33.3); Mean Corpuscular Volume 92.9 fL (83.0-100.0); Mean Platelet Volume 9.3 fL (9.4-12.4); Monocytes # 1.6 K/mcL (0.0-1.3); Neutrophils # 16.2 K/mcL (1.6-8.9); Nucleated Red Blood Cells 0.1 /100 WBC (0); Platelet Count 261 K/mcL (140-400); Red Blood Count 5.07 M/mcL (3.82-4.97); Red Cell Distribution Width 13.7 % (11.5-14.5); Segmented Neutrophils % 73.7 %
[2016-12-06] MEDS: *HR* Methadone 10 MG TABLET PO SCH (06:16)
[2016-12-06 07:23] VITALS: BP 115/78
[2016-12-06] MEDS: Ipratropium/Albuterol Neb 3 ML IH SCH (07:33)
--- NOTE | 2016-12-06 08:01 | Discharge Summary ---
Date of Encounter: 12/06/16 Time of Encounter: 07:54 - Discharge Diagnosis (1) Acute exacerbation of chronic obstructive airways disease Priority: Primary Status: Acute (2) UTI (urinary tract infection) Priority: Secondary Status: Acute Qualifiers: Urinary tract infection type: site unspecified Hematuria presence: without hematuria Qualified Code(s): N39.0 - Urinary tract infection, site not specified (3) Acute on chronic kidney failure Priority: Secondary Status: Acute Qualifiers: Acute renal failure type: unspecified Chronic kidney disease stage: stage 3 (moderate) Qualified Code(s): N17.9 - Acute kidney failure, unspecified; N18.3 - Chronic kidney disease, stage 3 (moderate) (4) Acute pulmonary embolism Priority: Secondary Status: Acute Qualifiers: Pulmonary embolism type: other Acute cor pulmonale presence: without acute cor pulmonale Qualified Code(s): I26.99 - Other pulmonary embolism without acute cor pulmonale (5) Atrial fibrillation with rapid ventricular response Priority: Secondary Status: Acute (6) Hypokalemia Priority: Secondary Status: Acute (7) Morbid obesity with BMI of 50.0-59.9, adult Priority: Secondary Status: Acute - Discharge Medications Prescriptions: Ipratropium/Albuterol Neb [Duoneb] 3 ml IH TID #90 inh Nitrofurantoin (BID) [Macrobid] 100 mg PO BIDWM #14 tab predniSONE [PredniSONE] 10 mg PO DAILY #25 tab Home Medications: Methadone 20 mg PO Q8HR 11/28/16 [History] Oxycodone HCl/Acetaminophen [Percocet 10-325 mg Tablet] 1 each PO Q4-6H PRN 01/04 [History] Albuterol Sulfate [Albuterol Inhaler] 2 puff IH Q4H PRN 11/29/16 [History] Amlodipine Besylate 2.5 mg PO DAILY 11/29/16 [History] Ammonium Lactate [Sherice-Hydrolac] 1 appl TP BID 11/29/16 [History] Aripiprazole [Abilify Maintena] 300 mg IM Q28D 11/29/16 [History] Chlorthalidone 25 mg PO DAILY 11/29/16 [History] Ciclopirox Olamine [Ciclopirox] 1 appl TP BID 11/29/16 [History] Ergocalciferol (VITAMIN D2) [Vitamin D2] 50,000 unit PO 2XW 11/29/16 [History] Fluticasone/Salmeterol [Advair 250-50 Diskus] 1 each IH BID 11/29/16 [History] Metoprolol Succinate 100 mg PO DAILY 11/29/16 [History] Potassium Chloride [Klor-Con 10] 10 meq PO DAILY 11/29/16 [History] Promethazine HCl 12.5 mg PO Q6H PRN 11/29/16 [History] Rivaroxaban [Xarelto] 20 mg PO DAILY 11/29/16 [History] Sertraline [Zoloft] 100 mg PO DAILY 11/29/16 [History] diazePAM [Valium] 10 mg PO BID 11/29/16 [History] predniSONE [PredniSONE] See Taper PO DAILY 11/29/16 [History] rOPINIRole [Requip] 0.25 mg PO HS 11/29/16 [History] Furosemide [Lasix] 40 mg PO DAILY #0 12/06/16 [Rx] Ipratropium/Albuterol Neb [Duoneb] 3 ml IH TID #90 inh 12/06/16 [Rx] Nitrofurantoin (BID) [Macrobid] 100 mg PO BIDWM #14 tab 12/06/16 [Rx] predniSONE [PredniSONE] 10 mg PO DAILY #25 tab 12/06/16 [Rx] Allergies/Adverse Reactions: 3 Allergy/AdvReac Type Severity Reaction Status Date / Time morphine AdvReac Hallucinati Verified 11/28/16 15:34 ng Procedures/tests Complete & Pending: Procedures Performed prior 72 hours Category Date Time Status US abdomen limited [US] Routine Exams 12/05/16 13:32 Ordered Date of admission: 11/29/16 21:06 Primary care physician: Kian Croft MD Consults: 11/30/16 14:08 Consult to Development Technical Lead [CONS] Routine Reason for SW Consult: re-admit Discharging clinician: Philip Lawton Anticipated date of discharge: 12/06/16 - Patient Status Disposition: Home, Self-Care Condition: Good - Discharge Instructions Follow Up With: Kian Croft MD [Primary Care Provider] - 12/08/16 5:00 pm - Diet and Activity Activity: resume usual activities as tolerated Diet: advance to your usual diet, low fat, low cholesterol, low salt diet Hospital course: Patient was recently admitted for COPD but left AMA. She has returned with the same symptoms of dyspnea and cough. She has been placed on IV Doxicycline and Zithromax and IV steroids med nebulizer with gradual improvement. Patient breathing has improved she is without oxygen now and lung examination showed clear lungs. She has tolerated oral steroids well and the frequency of nebulizer have been reduced. Since her chest x-ray was negative therefore Zithromax and doxycycline was stopped. Urine cluture shows enterococcus and therefore initially she was treated with IV ampicillin and later switched to Macrodantin. Patient had persistent leukocytosis perhaps related to steroids as there is no obvious sign of worsening infection. She remained afebrile and improved clinically. As reduce her dose of the steroid white count has also gone down and I have recommended her to get her CBC checked weekly basis for her family doctor to make sure that by the time the steroids are finished so normalized. She had an echocardiogram during this admission Her echocardiogram showed EF of 60% with good LV systolic function. Since her creatinine was quite elevated we held her Lasix and that helped in improving her creatinine. She takes a 6 for her leg edema mainly and it can be given at lower dose. Patient can be discharged home. - Time Spent with Patient Total time spent providing and/or coordinating discharge services: Greater than 30 minutes - Constitutional Vitals: Temp Pulse Resp BP Pulse Ox 98.4 F 61 16 115/78 95 12/06/16 07:20 12/06/16 07:20 12/06/16 07:33 12/06/16 07:20 12/06/16 07:33 General appearance: Present: A&O X 3, morbidly obese, no acute distress, answers questions appropriately - Head Head exam: Present: atraumatic, normocephalic - Eye Eye exam: Present: PERRL, conjuntiva pink, sclera anicteric Pupils: Present: PERRL - Neck Neck exam general surgery: Present: supple, trachea midline. Absent: lymphadenopathy - Respiratory Respiratory exam: Present: CTAB. Absent: accessory muscle use, rales, rhonchi, wheezes - Cardiovascular Cardiovascular exam: Present: RRR, +S1, +S2. Absent: diastolic murmur, gallop, rubs, systolic murmur - GI/Abdominal GI/Abdominal exam: Present: normal bowel sounds, soft, no peritoneal signs. Absent: distended, tenderness - Extremities Exam Extremities exam: Present: warm, radial pulses palpable and symmetrical. Absent : calf tenderness, cyanotic, pedal edema - Neurological Exam Neurological exam: Present: CN II-XII intact, oriented X3, no focal deficits. Absent: pronater drift, facial droop, speech deficit - Skin Skin exam: Present: dry, intact
[2016-12-06] MEDS: *HR* Rivaroxaban 10 MG TABLET PO SCH (08:47)
[2016-12-06] MEDS: Metoprolol XL (24 HR) Succ 50 MG TAB.ER.24H PO SCH (08:47)
[2016-12-06] MEDS: predniSONE 20 MG TABLET PO SCH (08:47)
[2016-12-06] MEDS: Nitrofurantoin (BID) 100 MG CAPSULE PO SCH (08:47)
--- NOTE | 2016-12-07 18:28 | Electrocardiograph Report ---
[place] [id number] Test Date: 2016-12-06 Pat Name: Heidi Hills Department: 113 Room: 3B Gender: F Screener Operator: NADINE : 1980 Requested By: Kaelyn Ritter Order Number: [id number] Reading MD: Irene Davis Measurements Intervals [place] Rate: 70 P: 60 HI: 128 QRS: 57 QRSD: 83 T: 42 QT: 388 QTc: 409 Interpretive Statements SINUS RHYTHM Electronically Signed On 12-07-2016 18:26:32 EDT by Irene Davis
== END 2016-12-06 12:12 | disposition home or self-care (01) | DRG 191 ==
LOC: 3BNU 15:00 → EMEROO 15:00 → 3BNU 21:16
PROVIDERS: ADMIT Nurse Practitioner Family; ATTEND Nurse Practitioner Family

== ENCOUNTER 2017-01-20 19:50 | Observation (INO) ==
[2017-01-20 20:38] LABS: Basophils % 0.2 %; Hematocrit 35.9 % (35.3-44.9); Immature Granulocytes % 0.5 % (0-4); Lymphocytes # 1.1 K/mcL (0.6-4.6); Lymphocytes % 10.7 %; Mean Corpuscular HGB Conc 33.4 g/dL (31.6-35.5); Mean Corpuscular Hemoglobin 30.8 pg (28.0-33.3); Mean Corpuscular Volume 92.1 fL (83.0-100.0); Mean Platelet Volume 9.5 fL (9.4-12.4); Monocytes # 0.5 K/mcL (0.0-1.3); Neutrophils # 8.2 K/mcL (1.6-8.9); Platelet Count 268 K/mcL (140-400); Red Cell Distribution Width 14.1 % (11.5-14.5); Segmented Neutrophils % 83.6 %
[2017-01-20 20:54] LABS: BUN/Creatinine Ratio 18 (6-26); Blood Urea Nitrogen 19 mg/dL (7-20); Calcium 9.3 mg/dL (8.6-10.8); Carbon Dioxide 19 mEq/L (19-29); Chloride 110 mEq/L (98-109); Glucose 120 mg/dL (70-99); Osmolality,Calculated 293 (280-300); Potassium 3.4 mEq/L (3.5-4.5); Sodium 140 mEq/L (136-145); eGFR For African Americans > 60 (> 60); eGFR For Non-African Americans 57 (> 60)
--- NOTE | 2017-01-20 21:16 | Emergency Department Note ---
Disposition Clinical Impression: SOB (shortness of breath) on exertion Disposition: Admitted As Inpatient Condition: Fair Time of Disposition: 00:06 SOB HPI - General Chief Complaint: ED Shortness of Breath/Dyspnea Stated Complaint: PETER Time Seen by Provider: 01/20/17 20:07 Source: patient Limitations: no limitations Nursing Notes Reviewed: Yes Vital Signs Reviewed: Yes - History of Present Illness Patient has a history of congestive heart failure and COPD and presents with shortness of breath for the last 3 or 4 days which is constant and worse with exertion and she denies any chest pain or discomfort. Does have bilateral lower extremity swelling which is typically worse on the left but now also involves the right. She does have a history of pulmonary embolism. She resumed her thrall toe 2 weeks ago. Denies any fevers or coughing or rhinorrhea or blood in the urine or stool. Does have bilateral lower extremity pain. Social history: Stopped smoking 45 days ago. Lives with her mother. - Related Data Home Medications Medication Instructions Recorded Confirmed Methadone 20 mg PO Q8HR 11/28/16 01/20/17 Oxycodone HCl/Acetaminophen 1 each PO Q4-6H PRN 11/28/16 01/20/17 [Percocet 10-325 mg Tablet] Albuterol Sulfate [Albuterol 2 puff IH Q4H PRN 11/29/16 01/20/17 Inhaler] Amlodipine Besylate 2.5 mg PO DAILY 11/29/16 01/20/17 Ammonium Lactate [Sherice-Hydrolac] 1 appl TP BID 11/29/16 01/20/17 Aripiprazole [Abilify Maintena] 300 mg IM Q28D 11/29/16 01/20/17 Chlorthalidone 25 mg PO DAILY 11/29/16 01/20/17 Ciclopirox Olamine [Ciclopirox] 1 appl TP BID 11/29/16 01/20/17 Ergocalciferol (VITAMIN D2) 50,000 unit PO 2XW 11/29/16 01/20/17 [Vitamin D2] Fluticasone/Salmeterol [Advair 1 each IH BID 11/29/16 01/20/17 250-50 Diskus] Potassium Chloride [Klor-Con 10] 10 meq PO DAILY 11/29/16 01/20/17 Promethazine HCl 12.5 mg PO Q6H PRN 11/29/16 01/20/17 Rivaroxaban [Xarelto] 20 mg PO DAILY 11/29/16 01/20/17 Sertraline [Zoloft] 100 mg PO DAILY 11/29/16 01/20/17 diazePAM [Valium] 10 mg PO BID 11/29/16 01/20/17 rOPINIRole [Requip] 0.25 mg PO HS 11/29/16 01/20/17 Atorvastatin [Lipitor] 40 mg PO HS 01/20/17 01/20/17 Ceftriaxone Sodium [Ceftriaxone] 40 mg IV DAILY 01/20/17 01/20/17 Furosemide [Lasix] 40 mg PO BID 01/20/17 01/20/17 Metoprolol [Lopressor] 12.5 mg PO BID 01/20/17 01/20/17 Spironolactone [Aldactone] 25 mg PO BID 01/20/17 01/20/17 Previous Rx's Medication Instructions Recorded Ipratropium/Albuterol Neb [Duoneb] 3 ml IH TID #90 inh 12/06/16 Allergies Allergy/AdvReac Type Severity Reaction Status Date / Time morphine AdvReac Hallucinati Verified 01/20/17 19:59 ng Review of Systems: Constitutional: No fever Vision: No blurred vision ENT: No rhinorrhea Respiratory: No cough Allergic: No allergies : No blood in urine GI: No blood in stool Hematologic: No bruising Dermatologic: No skin rash Musculoskeletal: + pain in the extremities Neuro: No numbness of the extremities Past Medical History - Past Medical History Medical history: Reports: CHF, COPD Surgical history: Reports: cholecystectomy, orthopedic, other Psychiatric history: Reports: anxiety, depression SEEING EYE DOG TRAINER history: Reports: no SEEING EYE DOG TRAINER history - Social History Smoking Status: Former smoker Smokeless Tobacco Status: No Alcohol use: Reports: none Drug use: Reports: none Physical Exam CONSTITUTIONAL: Alert and oriented X3, well-nourished, well appearing, in no apparent distress HEAD: Normocephalic; atraumatic. EYES: PERRL, no scleral icterus. NOSE: The nose is normal in appearance without rhinorrhea RESP: Normal chest excursion with respiration; breath sounds clear and equal bilaterally; no wheezes, rhonchi, or rales CARD: Regular rhythm, without murmurs, rub or gallop ABD: Non-distended; non-tender, soft,without rigidity, rebound or guarding SKIN: Normal for age and race; warm and dry; no apparent lesions EXTREMITIES: Bilateral lower extremity edema which is worse on the left than the right but no erythema or signs of infection. Feet are warm and pink - General Limitations: no limitations General appearance: alert Course Vital Signs Temperature 98.1 F 01/20/17 19:55 Pulse Rate 88 01/20/17 19:55 Respiratory Rate 20 01/20/17 19:55 Blood Pressure 117/79 01/20/17 19:55 O2 Sat by Pulse Oximetry 94 01/20/17 19:55 Temperature 98.1 F 01/20/17 19:55 Pulse Rate 70 01/20/17 23:14 Respiratory Rate 16 01/21/17 00:11 Blood Pressure 113/65 01/21/17 00:11 O2 Sat by Pulse Oximetry 97 01/20/17 23:14 Oxygen Delivery Oxygen Delivery Room Air Shortness of Breath/Dyspnea - [facility] Narrative Medical decision making narrative: Concern for congestive heart failure and her home health nurse did recommend she come to the emergency department to get IV Lasix. She typically takes 40 mg twice a day. She will receive IV Lasix 80 mg IV as well as nitroglycerin paste 2 inches and will be admitted to the hospital based on her symptoms. Test results including labs and chest x-ray are pending. I did review her EKG showing normal sinus rhythm with a rate of 84 without acute ischemic change or evidence of arrhythmia 7 The BNP is extremely low I will hold the Lasix for now. D-dimer elevated. CTA is ordered and pending to look for pulmonary embolism. 2 CTA and chest x-ray were negative. I did speak with the hospitalist. I did have concern still for a possible myocardial ischemia as well the patient has significant edema. She does say she has significant shortness of breath with exertion and is concerned about going home. The patient will be admitted and watched on the quality assurance monitor chassis. 0006 - Medical Records Medical records reviewed: Yes I reviewed the patient's medical records. - Lab Data Lab results reviewed: Yes I reviewed the patient's lab results. Result diagrams: 01/20/17 20:28 01/20/17 20:28 Lab Results 01/20/17 01/20/17 01/20/17 Range/Units 20:28 20:28 20:28 WBC 9.8 (4.3-11.1) K/mcL RBC 3.90 (3.82-4.97) M/mcL Hgb 12.0 (11.5-15.4) g/dL Hct 35.9 (35.3-44.9) % MCV 92.1 (83.0-100.0) fL MCH 30.8 (28.0-33.3) pg MCHC 33.4 (31.6-35.5) g/dL RDW 14.1 (11.5-14.5) % Plt Count 268 (140-400) K/mcL MPV 9.5 (9.4-12.4) fL Immature Gran % 0.5 (0-4) % Seg Neutrophils % 83.6 % Lymphocytes % 10.7 % Monocytes % 5.0 % Eosinophils % 0.0 % Basophils % 0.2 % Neutrophils # 8.2 (1.6-8.9) K/mcL Lymphocytes # 1.1 (0.6-4.6) K/mcL Monocytes # 0.5 (0.0-1.3) K/mcL Eosinophils # 0.0 (0.0-0.6) K/mcL Basophils # 0.0 (0.0-0.2) K/mcL D-Dimer (0-500) ng/mLFEU Sodium 140 (136-145) mEq/L Potassium 3.4 L (3.5-4.5) mEq/L Chloride 110 H (98-109) mEq/L Carbon Dioxide 19 (19-29) mEq/L BUN 19 (7-20) mg/dL Creatinine 1.08 (0.57-1.11) mg/dL Est GFR ( Amer) > 60 (> 60) Est GFR (Non-Af Amer) 57 L (> 60) BUN/Creatinine Ratio 18 (6-26) Glucose 120 H (70-99) mg/dL Calculated Osmolality 293 (280-300) Lactic Acid 1.5 (0.5-2.2) mmol/L Calcium 9.3 (8.6-10.8) mg/dL Troponin I (0-0.03) ng/mL B-Natriuretic Peptide (0-100) pg/mL 01/20/17 01/20/17 01/20/17 Range/Units 20:28 20:28 20:28 WBC (4.3-11.1) K/mcL RBC (3.82-4.97) M/mcL Hgb (11.5-15.4) g/dL Hct (35.3-44.9) % MCV (83.0-100.0) fL MCH (28.0-33.3) pg MCHC (31.6-35.5) g/dL RDW (11.5-14.5) % Plt Count (140-400) K/mcL MPV (9.4-12.4) fL Immature Gran % (0-4) % Seg Neutrophils % % Lymphocytes % % Monocytes % % Eosinophils % % Basophils % % Neutrophils # (1.6-8.9) K/mcL Lymphocytes # (0.6-4.6) K/mcL Monocytes # (0.0-1.3) K/mcL Eosinophils # (0.0-0.6) K/mcL Basophils # (0.0-0.2) K/mcL D-Dimer 1295 H (0-500) ng/mLFEU Sodium (136-145) mEq/L Potassium (3.5-4.5) mEq/L Chloride (98-109) mEq/L Carbon Dioxide (19-29) mEq/L BUN (7-20) mg/dL Creatinine (0.57-1.11) mg/dL Est GFR ( Amer) (> 60) Est GFR (Non-Af Amer) (> 60) BUN/Creatinine Ratio (6-26) Glucose (70-99) mg/dL Calculated Osmolality (280-300) Lactic Acid (0.5-2.2) mmol/L Calcium (8.6-10.8) mg/dL Troponin I 0.00 (0-0.03) ng/mL B-Natriuretic Peptide 59 (0-100) pg/mL - Radiology Data Radiology results reviewed: Yes I reviewed the patient's radiology results.
[2017-01-21 00:34] LABS: Bilirubin,Urine Negative (Negative); Blood,Urine Negative (Negative); Clarity,Urine Clear (Clear); Color,Urine Yellow (Yellow); Glucose,Urine (UA) Normal (Normal); Ketones,Urine Negative (Negative); Leukocyte Esterase,Urine Large (Negative); Nitrite,Urine Negative (Negative); PH,Urine 6.5 pH Units (5.0-8.0); Protein,Urine Negative (Neg-Trace); Urobilinogen,Urine Normal (Normal)
[2017-01-21 00:37] LABS: Hyaline Casts,Urine None Seen per lpf (None-Few); RBC,Urine 0-3 per hpf (0-3); Squamous Epithelial Cell,Urine Many per lpf (None-Few); WBC,Urine 50-100 per hpf (0-3)
[2017-01-21 00:51] LABS: Bacteria,Urine Moderate per hpf (None-Few)
[2017-01-21 00:52] LABS: Calcium Oxalate Crystals,Urine Present
[2017-01-21] MEDS ORDERED: Naloxone 0.4 MG/ML INJ IVP PRN (04:41)
[2017-01-21] MEDS ORDERED: Acetaminophen 325 MG TABLET PO PRN ×2 (04:41→04:48)
[2017-01-21] MEDS ORDERED: Ipratropium/Albuterol Neb 3 ML IH PRN (04:44)
--- NOTE | 2017-01-21 04:47 | Internal Med History&Physical ---
<Cy Alejandre - Last Filed: 01/21/17 05:13> Date of Encounter: 01/21/17 Time of Encounter: 04:44 Assessment and Plan (1) Acute and chronic respiratory failure with hypoxia Current visit: Yes Status: Acute - Likely secondary to CHF exacerbation given his symptoms of lower extremity swelling, dyspnea on exertion, PND - BNP likely diminished due to morbid obesity - Mild diastolic HF with severe LE edema. - We will give Lasix 40 mg IV twice a day, Spironolactone 25 mg Qday, fluid restriction 1.5 L, strict I's and O's -Supplemental oxygen as needed, however patient is currently tolerating room air without complaints (2) Acute diastolic (congestive) heart failure Current visit: Yes Status: Acute - Most recent echo in May 2015 showed an ejection fraction of 60% with no diastolic dysfunction - Hour patient states that she was diagnosed with congestive heart failure at [facility] last month, reported mild diastolic HF. - Patient admits to poor diet control, likely the cause of her exacerbation - Plan as above with IV Lasix, fluid restriction, strict I's and O's (3) Morbid obesity with BMI of 50.0-59.9, adult Current visit: No Status: Acute - Patient is morbidly obese with BMI greater than 60 - She will need counseling, exercise as outpatient to prevent further medical complications (4) Hypokalemia Current visit: Yes Status: Acute K of 3.4 in ED - Will replenish as necessary (5) Tobacco use Current visit: Yes Status: Acute - She reports no tobacco use in the previous 45 days - Does admit she is struggling with temptation and would like help during this visit - Nicotine patches (6) DVT prophylaxis Current visit: Yes Status: Acute Resume home [facility] Internal Medicine - H&P: HPI Chief complaint: dyspnea on exertion Admitted From: Emergency Dept Plans for Post Hospital Care: Home History of present illness: Ms. Hills is a 36 year old female presents to emergency room with chief complaint dyspnea on exertion 5 days. She states she has experienced this before, approximately one month ago when she went to [facility] and was diagnosed with congestive heart failure. She was given a prescription of Lasix 40 mg which she has been taking compliantly. She states her shortness of breath is progressive, and she can tolerate exertion for approximately 100 feet before becoming short of breath. She denies any recent symptoms of fevers, chills, cough, nausea, vomiting. She does admit to bilateral lower extremity edema which is also been progressive. She also has known history of COPD, and states that she quit smoking approximately 45 days ago. She denies orthopnea, however does admit to paroxysmal nocturnal dyspnea for multiple weeks. She also denies any symptoms of dyspnea at rest. In the emergency department, vital signs are significant for respiratory rate of 20. She has been saturating mid to high 90s on room air throughout admission. BNP was within normal limits at 59, however patient is morbidly obese with BMI of 60. Chest x-ray was unremarkable for acute process. Elevated d-dimer with subsequent CTA chest showing no point embolism. Past Med Surg Social Fam HX - Past Medical History Medical history: CHF, COPD, kidney stones Psychiatric history: anxiety, depression - Past Surgical History Surgical History: cholecystectomy - Social History Smoking Status: Former smoker Smokeless Tobacco Status: No Alcohol use: none Drug use: none - Family History Father Adopted: No Hx Family Cancer: Yes (neck) Internal Medicine - H&P: Meds Methadone 20 mg PO Q8HR 11/28/16 [History] Oxycodone HCl/Acetaminophen [Percocet 10-325 mg Tablet] 1 each PO Q4-6H PRN 01/04 [History] Albuterol Sulfate [Albuterol Inhaler] 2 puff IH Q4H PRN 11/29/16 [History] Amlodipine Besylate 2.5 mg PO DAILY 11/29/16 [History] Ammonium Lactate [Sherice-Hydrolac] 1 appl TP BID 11/29/16 [History] Aripiprazole [Abilify Maintena] 300 mg IM Q28D 11/29/16 [History] Chlorthalidone 25 mg PO DAILY 11/29/16 [History] Ciclopirox Olamine [Ciclopirox] 1 appl TP BID 11/29/16 [History] Ergocalciferol (VITAMIN D2) [Vitamin D2] 50,000 unit PO 2XW 11/29/16 [History] Fluticasone/Salmeterol [Advair 250-50 Diskus] 1 each IH BID 11/29/16 [History] Potassium Chloride [Klor-Con 10] 10 meq PO DAILY 11/29/16 [History] Promethazine HCl 12.5 mg PO Q6H PRN 11/29/16 [History] Rivaroxaban [Xarelto] 20 mg PO DAILY 11/29/16 [History] Sertraline [Zoloft] 100 mg PO DAILY 11/29/16 [History] diazePAM [Valium] 10 mg PO BID 11/29/16 [History] rOPINIRole [Requip] 0.25 mg PO HS 11/29/16 [History] Ipratropium/Albuterol Neb [Duoneb] 3 ml IH TID #90 inh 12/06/16 [Rx] Atorvastatin [Lipitor] 40 mg PO HS 01/20/17 [History] Ceftriaxone Sodium [Ceftriaxone] 40 mg IV DAILY 01/20/17 [History] Furosemide [Lasix] 40 mg PO BID 01/20/17 [History] Metoprolol [Lopressor] 12.5 mg PO BID 01/20/17 [History] Spironolactone [Aldactone] 25 mg PO BID 01/20/17 [History] 3 Allergy/AdvReac Type Severity Reaction Status Date / Time morphine AdvReac Hallucinati Verified 01/20/17 19:59 ng All Systems PM: A 10-system review of systems was performed and is negative for pertinent findings except as documented above in the HPI. - Constitutional Constitutional: chills (Chronic), no fatigue, no fever(s), no falls, no lethargy , no weakness - Cardiovascular Cardiovascular ROS IM: dyspnea on exertion, paroxysmal nocturnal dyspnea, no chest pain, no diaphoresis, no dyspnea, no lightheadedness, no orthopnea - Respiratory Respiratory: dyspnea on exertion, no dyspnea, no wheezing, no snoring - Gastrointestinal Gastrointestinal: no abdominal pain, no change in bowel habits, no nausea, no vomiting - Musculoskeletal Musculoskeletal ROS IM: no numbness, no tingling - Neurological Neurological ROS: no numbness, no tingling - Constitutional Vitals: Temp Pulse Resp BP Pulse Ox 98.3 F 74 16 109/69 96 01/21/17 01:38 01/21/17 01:38 01/21/17 01:38 01/21/17 01:38 01/21/17 01:38 Exam: Gen.: Vitals noted. No acute distress. AAOx3. Morbidly obese female resting comfortably in bed. HEENT:, oropharynx clear, Normocephalic, atraumatic. Moist mucous membranes Cardiac: RRR, no murmur, +S1/S2 Pulmonary: CTA bilaterally, no wheezes, rales or rhonchi, equal chest expansion Abdomen: soft, nontender, BS noted, no guarding. Unable to appreciate deep palpation due to body habitus MSK: ROM intact, no joint swelling noted Extremities: mild BLE edema present, however exam is limited due to body habitus. Lower extremities are tender to palpation. nontender calf, no cyanosis or clubbing Neuro: A&Ox3, moves all extremities, no focal deficits Psych: Appropriate mood and behavior Internal Med - H&P Results - Labs CBC & Chem 7: 01/20/17 20:28 01/20/17 20:28 Labs: Urine 01/21/17 Range/Units 00:21 Urine Color Yellow (Yellow) Urine Clarity Clear (Clear) Urine pH 6.5 (5.0-8.0) pH Units Ur Specific Cummings 1.030 H (1.010-1.025) Urine Protein Negative (Neg-Trace) mg/dL Urine Glucose (UA) Normal (Normal) mg/dL <Javier Mccabe H - Last Filed: 01/21/17 05:21> Date of Encounter: 01/21/17 Internal Medicine - H&P: HPI History of present illness: Ms. Hills is a 36 year old female All Systems PM: A 10-system review of systems was performed and is negative for pertinent findings except as documented above in the HPI. - Constitutional Vitals: Temp Pulse Resp BP Pulse Ox 98.3 F 74 16 109/69 96 01/21/17 01:38 01/21/17 01:38 01/21/17 01:38 01/21/17 01:38 01/21/17 01:38 Internal Med - H&P Results - Labs CBC & Chem 7: 01/20/17 20:28 01/20/17 20:28 Labs: Urine 01/21/17 Range/Units 00:21 Urine Color Yellow (Yellow) Urine Clarity Clear (Clear) Urine pH 6.5 (5.0-8.0) pH Units Ur Specific Cummings 1.030 H (1.010-1.025) Urine Protein Negative (Neg-Trace) mg/dL Urine Glucose (UA) Normal (Normal) mg/dL - Attending Attestation Overload/acute mild diastolic CHF exacerbation with severe bilateral lower extremity edema Start Lasix IV 40 mrem twice a day, strict I's and O's and daily weight, fluid restriction Discontinue amlodipine due to severe lower extremity edema Additional past medical history diastolic CHF, COPD not oxygen dependent history of A. fib, pulmonary emboli on Xarelto for depression, hyperlipidemia, chronic kidney she is a stage III Hypokalemia, replete as needed The patient will be admitted for observation. Full code. Time spent on this admission 40 minutes I examined this patient and my medical decision-making was reviewed with the Resident Physician. I agree with the documented findings, disposition and treatment plan as described except to the extent set forth below.
[2017-01-21] MEDS: *HR* Methadone 10 MG TABLET PO SCH ×3 (05:26→22:05)
[2017-01-21] MEDS: Furosemide 40 MG/4 ML VIAL IVP SCH ×2 (05:26→17:04)
[2017-01-21] MEDS: diazePAM 10 MG TABLET PO SCH ×2 (08:48→20:05)
[2017-01-21] MEDS: *HR* Rivaroxaban 10 MG TABLET PO SCH (08:48)
[2017-01-21] MEDS: Spironolactone 25 MG TABLET PO SCH ×2 (08:49→20:05)
[2017-01-21] MEDS: *HR* OxyCODONE Immed Rel 5 MG TABLET PO PRN ×2 (10:15→18:05)
[2017-01-21] MEDS: rOPINIRole 0.25 MG TABLET PO SCH (20:05)
[2017-01-22] MEDS: *HR* OxyCODONE Immed Rel 5 MG TABLET PO PRN ×3 (00:21→21:51)
[2017-01-22 04:53] LABS: Basophils # 0.1 K/mcL (0.0-0.2); Basophils % 0.4 %; Eosinophils # 0.1 K/mcL (0.0-0.6); Eosinophils % 0.4 %; Hematocrit 37.8 % (35.3-44.9); Hemoglobin 12.4 g/dL (11.5-15.4); Immature Granulocytes % 0.7 % (0-4); Lymphocytes # 2.8 K/mcL (0.6-4.6); Lymphocytes % 24.5 %; Mean Corpuscular HGB Conc 32.8 g/dL (31.6-35.5); Mean Corpuscular Hemoglobin 30.5 pg (28.0-33.3); Mean Corpuscular Volume 93.1 fL (83.0-100.0); Mean Platelet Volume 9.3 fL (9.4-12.4); Monocytes # 0.9 K/mcL (0.0-1.3); Monocytes % 7.9 %; Neutrophils # 7.6 K/mcL (1.6-8.9); Platelet Count 294 K/mcL (140-400); Red Blood Count 4.06 M/mcL (3.82-4.97); Red Cell Distribution Width 14.3 % (11.5-14.5); Segmented Neutrophils % 66.1 %
[2017-01-22 05:03] LABS: Hemoglobin A1C 5.5 %
[2017-01-22 05:11] LABS: BUN/Creatinine Ratio 20 (6-26); Blood Urea Nitrogen 24 mg/dL (7-20); Calcium 9.3 mg/dL (8.6-10.8); Carbon Dioxide 28 mEq/L (19-29); Chloride 104 mEq/L (98-109); Chol/HDL Ratio 3.4 (0-4.9); Cholesterol 152 mg/dL (< 200); Glucose 92 mg/dL (70-99); HDL Cholesterol 45 mg/dL (40-59); LDL Cholesterol,Calculated 93 mg/dL (0-99); Osmolality,Calculated 298 (280-300); Potassium 3.5 mEq/L (3.5-4.5); Sodium 142 mEq/L (136-145); Triglycerides 69 mg/dL (< 150); eGFR For African Americans > 60 (> 60); eGFR For Non-African Americans 50 (> 60)
[2017-01-22] MEDS: *HR* Methadone 10 MG TABLET PO SCH ×3 (05:38→21:59)
[2017-01-22] MEDS: *HR* Rivaroxaban 10 MG TABLET PO SCH (08:39)
[2017-01-22] MEDS: diazePAM 10 MG TABLET PO SCH ×2 (08:39→22:00)
[2017-01-22] MEDS: Spironolactone 25 MG TABLET PO SCH ×2 (08:39→22:00)
--- NOTE | 2017-01-22 10:46 | Electrocardiograph Report ---
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
[2017-01-22] MEDS: Ondansetron 4 MG/2 ML VIAL IVP PRN ×2 (13:55→21:53)
--- NOTE | 2017-01-22 17:08 | Internal Med Progress Note ---
Date of Encounter: 01/22/17 Time of Encounter: 16:52 - Assessment and plan (1) Acute and chronic respiratory failure with hypoxia Current Visit: Yes Status: Acute Assessment and plan: 1. Acute on chronic respiratory failure with hypoxia: -secondary to CHF exacerbation given his symptoms of lower extremity swelling, dyspnea on exertion, PND - BNP likely diminished due to morbid obesity - Mild diastolic HF with severe LE edema. - Initially diuresed with IV Lasix. Negative for liters. With mild bump in creatinine. Stop IV Lasix. Resume home Lasix. Fluid restriction 1.5 L, strict I's and O's -Supplemental oxygen as needed, however patient is currently tolerating room air without complaints 2. Acute diastolic heart failure: Most recent echo in May 2015 showed an ejection fraction of 60% with no diastolic dysfunction. IV Lasix stopped. Resume home lasix. , fluid restriction, strict I's and O's. Repeat echo pending 3. Morbid obesity: BMI greater than 60. lifestyle modifications encouraged 4. Hx Pulm embolism: cont Xarelto 5. JUAN: Slight bump in Cr. Likely due to Lasix. Plan as noted above 6. DVT prophylaxis: Xarelto (2) Acute diastolic (congestive) heart failure Current Visit: Yes Status: Acute (3) Acute on chronic kidney failure Current Visit: No Status: Acute Qualifiers: Acute renal failure type: unspecified Chronic kidney disease stage: stage 3 (moderate) Qualified Code(s): N17.9 - Acute kidney failure, unspecified; N18.3 - Chronic kidney disease, stage 3 (moderate); N18.3 - Chronic kidney disease, stage 3 (moderate) (4) Acute pulmonary embolism Current Visit: No Status: Acute Qualifiers: Pulmonary embolism type: other Acute cor pulmonale presence: without acute cor pulmonale Qualified Code(s): I26.99 - Other pulmonary embolism without acute cor pulmonale - Time Spent With Patient 1. Acute on chronic respiratory failure with hypoxia: -secondary to CHF exacerbation given his symptoms of lower extremity swelling, dyspnea on exertion, PND - BNP likely diminished due to morbid obesity - Mild diastolic HF with severe LE edema. - Initially diuresed with IV Lasix. Negative for liters. With mild bump in creatinine. Stop IV Lasix. Resume home Lasix. Fluid restriction 1.5 L, strict I's and O's -Supplemental oxygen as needed, however patient is currently tolerating room air without complaints 2. Acute diastolic heart failure: Most recent echo in May 2015 showed an ejection fraction of 60% with no diastolic dysfunction. IV Lasix stopped. Resume home lasix. , fluid restriction, strict I's and O's. Repeat echo pending 3. Morbid obesity: BMI greater than 60. lifestyle modifications encouraged 4. DVT prophylaxis: Xarelto - Subjective Interval history: Seen and examined at bedside, patient says she feels about the same today. SOB is a little better. No CP. - Constitutional Vitals: Temp Pulse Resp BP Pulse Ox 98.4 F 102 16 118/68 96 01/22/17 16:10 01/22/17 16:10 01/22/17 16:10 01/22/17 16:10 01/22/17 16:10 General appearance: Present: A&O X 3, morbidly obese - Head Head exam: Present: atraumatic, normocephalic - Eye Eye exam: Present: PERRL, conjuntiva pink, sclera anicteric Pupils: Present: PERRL - Neck Neck exam general surgery: Present: supple, trachea midline. Absent: lymphadenopathy - Respiratory Respiratory exam: Present: CTAB. Absent: accessory muscle use, rales, rhonchi, wheezes - Cardiovascular Cardiovascular exam: Present: RRR, +S1, +S2. Absent: diastolic murmur, gallop, rubs, systolic murmur - GI/Abdominal GI/Abdominal exam: Present: normal bowel sounds, soft, no peritoneal signs. Absent: distended, tenderness - Extremities Exam Extremities exam: Present: pedal edema, warm, radial pulses palpable and symmetrical. Absent: calf tenderness, cyanotic Additional comments: gross edema bilateral lower ext; left greater than right - Neurological Exam Neurological exam: Present: CN II-XII intact, oriented X3, no focal deficits. Absent: pronater drift, facial droop, speech deficit - Skin Skin exam: Present: dry, intact Internal Medicine: Result - Labs CBC & Chem 7: 01/22/17 04:17 01/22/17 04:17 Labs: Short CBC 01/22/17 Range/Units 04:17 WBC 11.5 H (4.3-11.1) K/mcL Hgb 12.4 (11.5-15.4) g/dL Hct 37.8 (35.3-44.9) % Plt Count 294 (140-400) K/mcL Neutrophils # 7.6 (1.6-8.9) K/mcL BMP 01/22/17 04:17 Sodium 142 Potassium 3.5 Chloride 104 Carbon Dioxide 28 BUN 24 H Creatinine 1.20 H Glucose 92 Calcium 9.3 - ABG Interpretation ABG results: PT/INR, D-dimer D-Dimer 1295 ng/mLFEU (0-500) H 01/20/17 20:28 - Impressions Impressions Echocardiogram 01/22/17 17:12 Impressions: LVEF 60%. Normal LV chamber size, wall thickness and function. Mild left ventricular diastolic dysfunction. Normal right ventricular structure and function. No evidence of pulmonary hypertension. No significant valvular dysfunction. Left Ventricular Wall Motion: Rest Echo Findings All wall segments showed normal motion. Findings: Study Quality * Technically sub-optimal due to body habitus. ECG Findings * Normal sinus rhythm. Left Ventricle * LVEF 60%. * Normal LV chamber size, wall thickness and function. * Mild left ventricular diastolic dysfunction. Right Ventricle * Normal right ventricular structure and function. Left Atrium * Mildly dilated left atrium. Right Atrium * Normal right atrial size. Interatrial Septum * Interatrial septum not well evaluated. Aortic Valve * Aortic valve not well visualized. * No aortic regurgitation. * No aortic stenosis. Mitral Valve * Normal mitral valve structure and function. * No mitral regurgitation. * No mitral stenosis. Tricuspid Valve * Normal tricuspid valve structure and function. * Trace tricuspid regurgitation. * No evidence of pulmonary hypertension. Pulmonic Valve * Pulmonic valve not well visualized. Aorta * Normally sized aortic root. Pericardium * The pericardium appears normal. IVC * The IVC is not well evaluated. Pulmonary Artery * Normal visualized portions of the main pulmonary artery. Consult Discharge Plan - Plan Referrals: Kian Croft MD [Primary Care Provider] - 01/31/17 4:00 pm
[2017-01-22] MEDS: rOPINIRole 0.25 MG TABLET PO SCH (22:00)
[2017-01-23] MEDS: *HR* Methadone 10 MG TABLET PO SCH (05:32)
[2017-01-23] MEDS: *HR* OxyCODONE Immed Rel 5 MG TABLET PO PRN ×2 (05:32→10:12)
[2017-01-23] MEDS: Ondansetron 4 MG/2 ML VIAL IVP PRN (05:33)
[2017-01-23] MEDS ORDERED: Furosemide 40 MG TABLET PO SCH (09:00)
[2017-01-23] MEDS: diazePAM 10 MG TABLET PO SCH (10:12)
[2017-01-23] MEDS: *HR* Rivaroxaban 10 MG TABLET PO SCH (10:12)
[2017-01-23] MEDS: Spironolactone 25 MG TABLET PO SCH (10:12)
[2017-01-23 10:57] VITALS: BP 123/84
[2017-01-23 11:40] LABS: Hematocrit 41.5 % (35.3-44.9); Hemoglobin 13.7 g/dL (11.5-15.4); Mean Corpuscular Hemoglobin 30.9 pg (28.0-33.3); Mean Corpuscular Volume 93.7 fL (83.0-100.0); Mean Platelet Volume 9.6 fL (9.4-12.4); Platelet Count 299 K/mcL (140-400); Red Blood Count 4.43 M/mcL (3.82-4.97)
[2017-01-23 11:53] LABS: BUN/Creatinine Ratio 25 (6-26); Blood Urea Nitrogen 23 mg/dL (7-20); Calcium 9.8 mg/dL (8.6-10.8); Carbon Dioxide 23 mEq/L (19-29); Chloride 103 mEq/L (98-109); Glucose 81 mg/dL (70-99); Osmolality,Calculated 289 (280-300); Sodium 138 mEq/L (136-145); eGFR For African Americans > 60 (> 60); eGFR For Non-African Americans > 60 (> 60)
[2017-01-23 11:56] LABS: Potassium 4.1 mEq/L (3.5-4.5)
--- NOTE | 2017-01-23 14:06 | Discharge Summary ---
Date of Encounter: 01/23/17 Time of Encounter: 13:56 - Discharge Diagnosis (1) Acute and chronic respiratory failure with hypoxia Priority: Primary Status: Acute Comments: 1. Acute respiratory failure with hypoxia: initially required O2. Chest CTA negative for pulmonary embolism. Multifactorial with morbid obesity and diastolic heart dysfunction. Sx's improved with diuresis. She was discharged home on room air. 2. Acute diastolic heart failure: with lower extremity swelling, dyspnea on exertion, PND. BNP likely diminished due to morbid obesity. TTE with EF 60% and mild diastolic dysfunction. She was initially diuresed with IV lasix, negative 5 Liters with improvement in breathing. Home lasix resumed at discharge. Recommend outpatient follow-up with PCP in 1-2 weeks 3. Lower extremity edema: has known lymphedema. Bilateral lower ext dopplers negative for DVTs in visualized veins. Follow-up with lymphedema clinic as previosuly planned 3. Morbid obesity: BMI greater than 60. lifestyle modifications encouraged 4. Hx Pulm embolism: cont Xarelto (2) Acute diastolic (congestive) heart failure Priority: Primary Status: Acute (3) Acute pulmonary embolism Priority: Primary Status: Acute Qualifiers: Pulmonary embolism type: other Acute cor pulmonale presence: without acute cor pulmonale Qualified Code(s): I26.99 - Other pulmonary embolism without acute cor pulmonale - Discharge Medications Home Medications: Methadone 20 mg PO Q8HR 11/28/16 [History] Oxycodone HCl/Acetaminophen [Percocet 10-325 mg Tablet] 1 each PO Q4-6H PRN 01/04 [History] Albuterol Sulfate [Albuterol Inhaler] 2 puff IH Q4H PRN 11/29/16 [History] Amlodipine Besylate 2.5 mg PO DAILY 11/29/16 [History] Ammonium Lactate [Sherice-Hydrolac] 1 appl TP BID 11/29/16 [History] Aripiprazole [Abilify Maintena] 300 mg IM Q28D 11/29/16 [History] Chlorthalidone 25 mg PO DAILY 11/29/16 [History] Ciclopirox Olamine [Ciclopirox] 1 appl TP BID 11/29/16 [History] Ergocalciferol (VITAMIN D2) [Vitamin D2] 50,000 unit PO 2XW 11/29/16 [History] Fluticasone/Salmeterol [Advair 250-50 Diskus] 1 each IH BID 11/29/16 [History] Potassium Chloride [Klor-Con 10] 10 meq PO DAILY 11/29/16 [History] Promethazine HCl 12.5 mg PO Q6H PRN 11/29/16 [History] Rivaroxaban [Xarelto] 20 mg PO DAILY 11/29/16 [History] Sertraline [Zoloft] 100 mg PO DAILY 11/29/16 [History] diazePAM [Valium] 10 mg PO BID 11/29/16 [History] rOPINIRole [Requip] 0.25 mg PO HS 11/29/16 [History] Ipratropium/Albuterol Neb [Duoneb] 3 ml IH TID #90 inh 12/06/16 [Rx] Atorvastatin [Lipitor] 40 mg PO HS 01/20/17 [History] Ceftriaxone Sodium [Ceftriaxone] 40 mg IV DAILY 01/20/17 [History] Furosemide [Lasix] 40 mg PO BID 01/20/17 [History] Metoprolol [Lopressor] 12.5 mg PO BID 01/20/17 [History] Spironolactone [Aldactone] 25 mg PO BID 01/20/17 [History] Allergies/Adverse Reactions: 3 Allergy/AdvReac Type Severity Reaction Status Date / Time morphine AdvReac Hallucinati Verified 01/20/17 19:59 ng Procedures/tests Complete & Pending: Procedures Performed prior 72 hours Category Date Time Status EV echocardiogram Routine Y 01/22/17 17:12 Completed Date of admission: 01/21/17 00:09 Primary care physician: Kian Croft MD Discharging clinician: Deepa Alexandre Anticipated date of discharge: 01/23/17 - Patient Status Disposition: Home, Self-Care Condition: Fair Functional capacity at discharge: independent ambulation Overall status at discharge: patient is back to baseline - Discharge Instructions Instructions: Heart Failure (DC), Weight Management (DC), Lymphedema (DC), Heart Healthy Diet (DC) Follow Up With: Kian Croft MD [Primary Care Provider] - 01/31/17 4:00 pm Additional Instructions: Please call your family doctor within 24 hours to make follow-up appointment within 1-2 weeks. Follow-up with lymphedema clinic as previously planned - Diet and Activity Activity: ambulate only with your walker Diet: advance to your usual diet, low fat, low cholesterol Interval History: Seen and examined at bedside, patient says she feels better today. Still SOB with exertion but overall improved. No CP. Says lower extremity edema is a little bit better as well. She is supposed to follow up with the lymphedema clinic. Hospital course: See assessment and plan for hospital course - Time Spent with Patient Total time spent providing and/or coordinating discharge services: - Constitutional Vitals: Temp Pulse Resp BP Pulse Ox 97.6 F 92 20 123/84 93 01/23/17 11:55 01/23/17 11:55 01/23/17 11:55 01/23/17 11:55 01/23/17 11:55 General appearance: Present: A&O X 3, morbidly obese - Head Head exam: Present: atraumatic, normocephalic - Eye Eye exam: Present: PERRL, conjuntiva pink, sclera anicteric Pupils: Present: PERRL - Neck Neck exam general surgery: Present: supple, trachea midline. Absent: lymphadenopathy - Respiratory Respiratory exam: Present: CTAB. Absent: accessory muscle use, rales, rhonchi, wheezes - Cardiovascular Cardiovascular exam: Present: RRR, +S1, +S2. Absent: diastolic murmur, gallop, rubs, systolic murmur - GI/Abdominal GI/Abdominal exam: Present: normal bowel sounds, soft, no peritoneal signs. Absent: distended, tenderness - Extremities Exam Extremities exam: Present: pedal edema, warm, radial pulses palpable and symmetrical. Absent: calf tenderness, cyanotic Additional comments: Gross lower extremity edema; left worse than right - Neurological Exam Neurological exam: Present: CN II-XII intact, oriented X3, no focal deficits. Absent: pronater drift, facial droop, speech deficit - Skin Skin exam: Present: dry, intact
== END 2017-01-23 13:44 | disposition home or self-care (01) ==
LOC: EMEROO 19:50 → 3BNU 19:50
PROVIDERS: ADMIT Internal Medicine; ATTEND Registered Nurse

== ENCOUNTER 2017-12-06 10:27 | Inpatient (IN) ==
[2017-12-06] MEDS ORDERED: methylPREDNISolone 125 MG/2 ML VIAL IM ONE (10:34)
[2017-12-06] MEDS ORDERED: Ipratropium/Albuterol Neb 3 ML IH ONE ×2 (10:34→11:11)
--- NOTE | 2017-12-06 10:38 | Emergency Department Note ---
Disposition Clinical Impression: Acute exacerbation of chronic obstructive airways disease, SOB (shortness of breath) on exertion Disposition: Still a Patient Condition: Fair Forms: ED Satisfaction Letter General Adult HPI - General Chief complaint: ED Shortness of Breath/Dyspnea Stated complaint: PETER Time Seen by Provider: 12/06/17 10:33 Source: patient, EMS Limitations: no limitations Nursing Notes Reviewed: Yes Vital Signs Reviewed: Yes - History of Present Illness HPI Narrative: 37 year old female with history of COPD presents with shortness of breath. pt stated the symptoms started 4 days ago. She treated herself with inhalers. She also completed steroids and Z-[place]. Patient stated the symptoms have not got any better. Patient denied chest pain. Baseline legs swelling. Onset (ago): day(s) (4) Location: chest Radiation: non-radiation - Related Data Home Medications Medication Instructions Recorded Confirmed Methadone 20 mg PO Q8HR 11/28/16 12/01/17 Oxycodone HCl/Acetaminophen 1 each PO Q4-6H PRN 11/28/16 12/01/17 [Percocet 10-325 mg Tablet] Albuterol Sulfate [Albuterol 2 puff IH Q4H PRN 11/29/16 12/01/17 Inhaler] Amlodipine Besylate 2.5 mg PO DAILY 11/29/16 12/01/17 Ammonium Lactate [Sherice-Hydrolac] 1 appl TP BID 11/29/16 12/01/17 Aripiprazole [Abilify Maintena] 300 mg IM Q28D 11/29/16 12/01/17 Chlorthalidone 25 mg PO DAILY 11/29/16 12/01/17 Ciclopirox Olamine [Ciclopirox] 1 appl TP BID 11/29/16 12/01/17 Ergocalciferol (VITAMIN D2) 50,000 unit PO 2XW 11/29/16 12/01/17 [Vitamin D2] Fluticasone/Salmeterol [Advair 1 each IH BID 11/29/16 12/01/17 250-50 Diskus] Potassium Chloride [Klor-Con 10] 10 meq PO DAILY 11/29/16 12/01/17 Promethazine HCl 12.5 mg PO Q6H PRN 11/29/16 12/01/17 Rivaroxaban [Xarelto] 20 mg PO DAILY 11/29/16 12/01/17 Sertraline [Zoloft] 100 mg PO DAILY 11/29/16 12/01/17 diazePAM [Valium] 10 mg PO BID 11/29/16 12/01/17 rOPINIRole [Requip] 0.25 mg PO HS 11/29/16 12/01/17 Atorvastatin [Lipitor] 40 mg PO HS 01/20/17 12/01/17 Ceftriaxone Sodium [Ceftriaxone] 40 mg IV DAILY 01/20/17 12/01/17 Furosemide [Lasix] 40 mg PO BID 01/20/17 12/01/17 Metoprolol [Lopressor] 12.5 mg PO BID 01/20/17 12/01/17 Spironolactone [Aldactone] 25 mg PO BID 01/20/17 12/01/17 Previous Rx's Medication Instructions Recorded Ipratropium/Albuterol Neb [Duoneb] 3 ml IH TID #90 inh 12/06/16 Azithromycin [Zithromax] 0 tab PO DAILY #6 tablet 02/25/17 Nitrofurantoin Monohyd/M-Cryst 100 mg PO BID #14 capsule 05/31/17 [Macrobid 100 mg Capsule] Ondansetron ODT [Zofran ODT] 4 mg SL Q8HR PRN #10 tab.rapdis 05/31/17 Albuterol Sulfate [Albuterol 2 puff IH Q4HR #1 hfa.aer.ad 12/01/17 Inhaler] Azithromycin [Azithromycin 6-Tab 250 mg PO PER PKG DI #6 tab 12/01/17 Pack] Guaifenesin/Dm/Pseudoephedrine 1 each PO BID #20 tablet 12/01/17 [Capmist Dm Tablet] PredniSONE [Deltasone] 20 mg PO DAILY #12 tablet 12/01/17 Allergies Allergy/AdvReac Type Severity Reaction Status Date / Time morphine AdvReac Hallucinati Verified 12/06/17 10:33 ng Constitutional: Denies: fever, chills, weakness, weight change Eyes: Denies: eye pain, eye discharge, vision change ENT ED: Denies: ear pain, throat pain, dental pain, hearing loss, epistaxis, congestion, dysphagia Cardiovascular: Denies: chest pain, palpitations, dyspnea on exertion, edema, syncope Respiratory: Reports: dyspnea. Denies: cough, wheezes, hemoptysis, stridor Gastrointestinal: Denies: abdominal pain, nausea, vomiting, diarrhea, constipation, hematemesis, melena, hematochezia Genitourinary: Denies: dysuria, frequency, hematuria, discharge Musculoskeletal: Denies: back pain, neck pain, arthralgia, myalgia Integumentary: Denies: rash, abrasion, lesions Neurological: Denies: headache, weakness, numbness, paresthesias, confusion, abnormal gait, vertigo Psychiatric: Denies: anxiety, depression, suicidal thoughts, homicidal thoughts , auditory hallucinations, visual hallucinations Endocrine: Denies: fatigue Hematological/Lymphatic: Denies: easy bleeding, easy bruising Allergic/Immunologic: Denies: facial swelling, urticaria Past Medical History - Past Medical History Medical history: Reports: COPD Surgical history: Reports: non-contributory, cholecystectomy Psychiatric history: Reports: anxiety, depression FIELD SERVICES ANALYST history: Reports: no FIELD SERVICES ANALYST history - Social History Smoking Status: Current every day smoker Smokeless Tobacco Status: No Alcohol use: Reports: none Drug use: Reports: none Physical Exam - General Limitations: no limitations General appearance: alert, in no apparent distress - Head Head exam: atraumatic, normocephalic, normal inspection - Eye Eye exam: Present: normal appearance, PERRL, EOMI. Absent: scleral icterus, conjunctival injection - ENT ENT exam: normal exam, normal oropharynx, mucous membranes moist - Neck Neck exam: Present: normal inspection, full ROM, trachea midline - Chest Chest inspection: Present: normal inspection, symmetric chest wall rise. Absent : tenderness - Respiratory Respiratory exam: Present: respiratory distress. Absent: wheezes - Cardiovascular Cardiovascular exam: Present: regular rate, normal rhythm, normal heart sounds - Abdominal Exam Abdominal exam: Present: soft, Non-Tender. Absent: tenderness, distention, guarding, rebound, rigidity - Extremities Exam Extremities exam: Present: full ROM. Absent: tenderness - Back Exam Back exam: Present: normal inspection, full ROM. Absent: tenderness - Neurological Exam Neurological exam: Present: alert, oriented X3 - Psychiatric Psychiatric exam: Present: normal affect, normal mood - Skin Skin exam: Present: warm, intact. Absent: dry (mild wet) Course Vital Signs Temperature 97.5 F L 12/06/17 10:34 Pulse Rate 100 12/06/17 10:34 Respiratory Rate 28 12/06/17 10:34 Blood Pressure 127/101 12/06/17 10:34 O2 Sat by Pulse Oximetry 96 12/06/17 10:34 Temperature 97.5 F L 12/06/17 10:34 Pulse Rate 118 12/06/17 12:06 Respiratory Rate 28 12/06/17 12:06 Blood Pressure 147/89 12/06/17 12:06 O2 Sat by Pulse Oximetry 95 12/06/17 12:06 Oxygen Delivery Oxygen Delivery Aerosol Mask Medical Decision Making - [facility] Narrative Medical decision making narrative: 37 year old obese female with a history of COPD presents with intractable shortness of breath for 4 days. Patient completed one course of antibiotics and steroids on top of breath treatment without improvement. Physical exam: afebrile, Respiratory rate 28, o2 sat 95% in room air, bilateral lung sound diminished. labs and chest xray ordered. Breath treatment and one dose of steroids given. Deferential: COPD exacerbation VS. Pneumonia, dyspnea. Transfer care to Dr. Booker due to shift change. - Lab Data Result diagrams: 12/06/17 10:50 12/06/17 10:50 Lab Results 12/06/17 12/06/17 12/06/17 Range/Units 10:50 10:50 10:50 WBC 12.5 H (4.3-11.1) K/mcL RBC 4.53 (3.82-4.97) M/mcL Hgb 13.7 (11.5-15.4) g/dL Hct 41.2 (35.3-44.9) % MCV 90.9 (83.0-100.0) fL MCH 30.2 (28.0-33.3) pg MCHC 33.3 (31.6-35.5) g/dL RDW 14.1 (11.5-14.5) % Plt Count 316 (140-400) K/mcL MPV 10.1 (9.4-12.4) fL Immature Gran % 0.8 (0-4) % Seg Neutrophils % 74.4 % Lymphocytes % 18.6 % Monocytes % 5.4 % Eosinophils % 0.6 % Basophils % 0.2 % Neutrophils # 9.3 H (1.6-8.9) K/mcL Lymphocytes # 2.3 (0.6-4.6) K/mcL Monocytes # 0.7 (0.0-1.3) K/mcL Eosinophils # 0.1 (0.0-0.6) K/mcL Basophils # 0.0 (0.0-0.2) K/mcL PT 14.4 H (9.4-12.1) Seconds INR 1.3 APTT 29.8 (26.0-36.0) Seconds Sodium 144 (136-145) mEq/L Potassium 3.8 (3.5-5.1) mEq/L Chloride 114 H (98-107) mEq/L Carbon Dioxide 24 (23-29) mEq/L BUN 18 (6-20) mg/dL Creatinine 0.99 (0.60-1.20) mg/dL Est GFR ( Amer) > 60 (> 60) Est GFR (Non-Af Amer) > 60 (> 60) BUN/Creatinine Ratio 18 (6-26) Glucose 85 (70-105) mg/dL Calculated Osmolality 299 (280-300) Calcium 8.8 (8.6-10.3) mg/dL Total Bilirubin 0.7 (0.3-1.0) mg/dL AST 32 (13-39) Units/L ALT 27 (7-52) Units/L Alkaline Phosphatase 89 (34-104) Units/L Troponin I (< 0.04) ng/mL B-Natriuretic Peptide (Less than 100) pg/mL Serum Total Protein 5.9 L (6.4-8.9) g/dL Albumin 3.3 L (3.5-5.7) g/dL Globulin 2.6 (2.4-3.5) g/dL Albumin/Globulin Ratio 1.3 (1.1-2.2) 12/06/17 12/06/17 Range/Units 10:50 10:50 WBC (4.3-11.1) K/mcL RBC (3.82-4.97) M/mcL Hgb (11.5-15.4) g/dL Hct (35.3-44.9) % MCV (83.0-100.0) fL MCH (28.0-33.3) pg MCHC (31.6-35.5) g/dL RDW (11.5-14.5) % Plt Count (140-400) K/mcL MPV (9.4-12.4) fL Immature Gran % (0-4) % Seg Neutrophils % % Lymphocytes % % Monocytes % % Eosinophils % % Basophils % % Neutrophils # (1.6-8.9) K/mcL Lymphocytes # (0.6-4.6) K/mcL Monocytes # (0.0-1.3) K/mcL Eosinophils # (0.0-0.6) K/mcL Basophils # (0.0-0.2) K/mcL PT (9.4-12.1) Seconds INR APTT (26.0-36.0) Seconds Sodium (136-145) mEq/L Potassium (3.5-5.1) mEq/L Chloride (98-107) mEq/L Carbon Dioxide (23-29) mEq/L BUN (6-20) mg/dL Creatinine (0.60-1.20) mg/dL Est GFR ( Amer) (> 60) Est GFR (Non-Af Amer) (> 60) BUN/Creatinine Ratio (6-26) Glucose (70-105) mg/dL Calculated Osmolality (280-300) Calcium (8.6-10.3) mg/dL Total Bilirubin (0.3-1.0) mg/dL AST (13-39) Units/L ALT (7-52) Units/L Alkaline Phosphatase (34-104) Units/L Troponin I 0.03 (< 0.04) ng/mL B-Natriuretic Peptide 175 H (Less than 100) pg/mL Serum Total Protein (6.4-8.9) g/dL Albumin (3.5-5.7) g/dL Globulin (2.4-3.5) g/dL Albumin/Globulin Ratio (1.1-2.2)
[2017-12-06] MEDS ORDERED: Isovue-370 500 ML INFUS..BTL IV ONE (11:11)
[2017-12-06] MEDS ORDERED: 0.9 % Sodium Chloride 1,000 ML IVC SCH (11:15)
[2017-12-06 11:26] LABS: Basophils % 0.2 %; Eosinophils # 0.1 K/mcL (0.0-0.6); Eosinophils % 0.6 %; Hematocrit 41.2 % (35.3-44.9); Hemoglobin 13.7 g/dL (11.5-15.4); Immature Granulocytes % 0.8 % (0-4); Lymphocytes # 2.3 K/mcL (0.6-4.6); Lymphocytes % 18.6 %; Mean Corpuscular HGB Conc 33.3 g/dL (31.6-35.5); Mean Corpuscular Hemoglobin 30.2 pg (28.0-33.3); Mean Corpuscular Volume 90.9 fL (83.0-100.0); Mean Platelet Volume 10.1 fL (9.4-12.4); Monocytes # 0.7 K/mcL (0.0-1.3); Monocytes % 5.4 %; Neutrophils # 9.3 K/mcL (1.6-8.9); Platelet Count 316 K/mcL (140-400); Red Blood Count 4.53 M/mcL (3.82-4.97); Red Cell Distribution Width 14.1 % (11.5-14.5); Segmented Neutrophils % 74.4 %
[2017-12-06 11:31] LABS: INR 1.3; Prothrombin Time 14.4 Seconds (9.4-12.1)
[2017-12-06 11:34] LABS: Activated Partial Thrombo Time 29.8 Seconds (26.0-36.0)
--- NOTE | 2017-12-06 11:37 | Emergency Department Note ---
Disposition Clinical Impression: Acute exacerbation of chronic obstructive airways disease, SOB (shortness of breath) on exertion Community acquired pneumonia Qualifiers: Laterality: unspecified laterality Qualified Code(s): J18.9 - Pneumonia, unspecified organism Fluid overload Qualifiers: Hypervolemia type: unspecified Qualified Code(s): E87.70 - Fluid overload, unspecified Disposition: Admitted As Inpatient Condition: Fair Referrals: Kian Croft MD [Primary Care Provider] - Forms: ED Satisfaction Letter Time of Disposition: 18:55 SOB HPI - General Chief Complaint: ED Shortness of Breath/Dyspnea Stated Complaint: PETER Time Seen by Provider: 12/06/17 10:33 Source: patient, EMS Mode of arrival: ambulatory Limitations: no limitations Nursing Notes Reviewed: Yes Vital Signs Reviewed: Yes - History of Present Illness Patient presents emergency room with complaint of persistently worsening shortness of breath. Denies any productive cough or sputum. She does have a history of COPD. Typically uses 4 L of oxygen as needed at home. Pt Subjective Complaint: shortness of breath Onset (ago): day(s) Severity: moderate Consistency/Duration: gradually worsening Improves with: oxygen Worsens with: lying flat, exertion, movement Known history of: COPD, congestive heart failure Associated symptoms: Reports: cough, wheezing Treatment prior to arrival: oxygen Cough present: Yes Cough Description: Voluntary Cough Frequency: Intermittent - Related Data Home Medications Medication Instructions Recorded Confirmed Methadone 20 mg PO Q8HR 11/28/16 12/01/17 Oxycodone HCl/Acetaminophen 1 each PO Q4-6H PRN 11/28/16 12/01/17 [Percocet 10-325 mg Tablet] Albuterol Sulfate [Albuterol 2 puff IH Q4H PRN 11/29/16 12/01/17 Inhaler] Amlodipine Besylate 2.5 mg PO DAILY 11/29/16 12/01/17 Ammonium Lactate [Sherice-Hydrolac] 1 appl TP BID 11/29/16 12/01/17 Aripiprazole [Abilify Maintena] 300 mg IM Q28D 11/29/16 12/01/17 Chlorthalidone 25 mg PO DAILY 11/29/16 12/01/17 Ciclopirox Olamine [Ciclopirox] 1 appl TP BID 11/29/16 12/01/17 Ergocalciferol (VITAMIN D2) 50,000 unit PO 2XW 11/29/16 12/01/17 [Vitamin D2] Fluticasone/Salmeterol [Advair 1 each IH BID 11/29/16 12/01/17 250-50 Diskus] Potassium Chloride [Klor-Con 10] 10 meq PO DAILY 11/29/16 12/01/17 Promethazine HCl 12.5 mg PO Q6H PRN 11/29/16 12/01/17 Rivaroxaban [Xarelto] 20 mg PO DAILY 11/29/16 12/01/17 Sertraline [Zoloft] 100 mg PO DAILY 11/29/16 12/01/17 diazePAM [Valium] 10 mg PO BID 11/29/16 12/01/17 rOPINIRole [Requip] 0.25 mg PO HS 11/29/16 12/01/17 Atorvastatin [Lipitor] 40 mg PO HS 01/20/17 12/01/17 Ceftriaxone Sodium [Ceftriaxone] 40 mg IV DAILY 01/20/17 12/01/17 Furosemide [Lasix] 40 mg PO BID 01/20/17 12/01/17 Metoprolol [Lopressor] 12.5 mg PO BID 01/20/17 12/01/17 Spironolactone [Aldactone] 25 mg PO BID 01/20/17 12/01/17 Previous Rx's Medication Instructions Recorded Ipratropium/Albuterol Neb [Duoneb] 3 ml IH TID #90 inh 12/06/16 Azithromycin [Zithromax] 0 tab PO DAILY #6 tablet 02/25/17 Nitrofurantoin Monohyd/M-Cryst 100 mg PO BID #14 capsule 05/31/17 [Macrobid 100 mg Capsule] Ondansetron ODT [Zofran ODT] 4 mg SL Q8HR PRN #10 tab.rapdis 05/31/17 Albuterol Sulfate [Albuterol 2 puff IH Q4HR #1 hfa.aer.ad 12/01/17 Inhaler] Azithromycin [Azithromycin 6-Tab 250 mg PO PER PKG DI #6 tab 12/01/17 Pack] Guaifenesin/Dm/Pseudoephedrine 1 each PO BID #20 tablet 12/01/17 [Capmist Dm Tablet] PredniSONE [Deltasone] 20 mg PO DAILY #12 tablet 12/01/17 Allergies Allergy/AdvReac Type Severity Reaction Status Date / Time morphine AdvReac Hallucinati Verified 12/06/17 10:33 ng All systems ED: reviewed and negative except as stated. Review of Systems: As Per HPI Constitutional: Denies: fever, chills, weakness, weight change Eyes: Denies: eye pain, eye discharge, vision change ENT ED: Denies: ear pain, throat pain, dental pain, hearing loss, epistaxis, congestion, dysphagia Cardiovascular: Denies: chest pain, palpitations, dyspnea on exertion, edema, syncope Respiratory: Reports: dyspnea. Denies: cough, wheezes, hemoptysis, stridor Gastrointestinal: Denies: abdominal pain, nausea, vomiting, diarrhea, constipation, hematemesis, melena, hematochezia Genitourinary: Denies: dysuria, frequency, hematuria, discharge Musculoskeletal: Denies: back pain, neck pain, arthralgia, myalgia Integumentary: Denies: rash, abrasion, lesions Neurological: Denies: headache, weakness, numbness, paresthesias, confusion, abnormal gait, vertigo Psychiatric: Denies: anxiety, depression, suicidal thoughts, homicidal thoughts , auditory hallucinations, visual hallucinations Endocrine: Denies: fatigue Hematological/Lymphatic: Denies: easy bleeding, easy bruising Allergic/Immunologic: Denies: facial swelling, urticaria Past Medical History - Past Medical History Attestation: Yes The following information was validated with the patient. 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 Absent: stridor, accessory muscle use - Cardiovascular Cardiovascular exam: Present: normal rhythm, tachycardia, normal heart sounds - Abdominal Exam Abdominal exam: Present: soft, Non-Tender. Absent: tenderness, distention, guarding, rebound, rigidity - Extremities Exam Extremities exam: Present: normal inspection, full ROM, normal capillary refill. Absent: tenderness, pedal edema - Back Exam Back exam: Present: normal inspection, full ROM. Absent: tenderness - Neurological Exam Neurological exam: Present: alert, oriented X3, CN II-XII intact, normal gait - Skin Skin exam: Present: warm, dry, intact, normal color Course Course Narrative: Patient seen and examined the time of arrival. See history of present illness. 37-year-old female that was initially seen by the advanced practice provider presented here today for her shortness of breath that has been persistently getting worse with increased work of breathing. She has a history of pulmonary emboli and was previously on Xarelto. That medication was stopped. She also has known COPD that requires 4 L of oxygen intermittently at home. She denies any trauma or injury. Currently denying chest pain fevers chills nausea vomiting or diarrhea. No headache or vision change. Patient is alert she is oriented she speaks in full sentences. She does have some conversational dyspnea on exam. One breathing treatment as well as steroids have been provided artery at this time. Patient does have coarse crackles bilaterally in the lung [place]son as well as tachycardia. She has lymphedema that is a chronic issue. She has no abdominal pain or other symptoms. CT angiography of the chest will be added on along with troponin and BNP and urinalysis. Patient's initial EKG shows sinus tachycardia with no acute abnormalities at this point. As compared to previous EKG on significant changes. Disposition will most likely be admission once the full workup and evaluation are completed. Patient is otherwise stable at this time but does have concern for decompensation. - Reevaluation(s) Reevaluation #1: Patient is feeling better after breathing treatments. Her lungs are moving more air she still persistently tachycardic. CT angiography the chest is pending. Time: 13:53 Reevaluation #2: Significant delay has been noted in the patient's care secondary to poor vascular access. Patient will have CT angiography the chest completed and the IV blew. There were attempting to place a midline catheter at this point for continuation of care. Patient is still tachycardic. Time: 16:30 Reevaluation #3: CT confirms suspicion of either congestive heart failure presentation with fluid overload or atypical pneumonia. Patient is guarded been clinically treated for both of those issues. IV access has been obtained pain medicine has been provided for the patient's chronic issues. Admission process to be established at this time. Hospitalist has been paged for admission. Dr. Thomas and I reviewed the patient's presentation symptoms at length. No other questions or concerns at this time. Medical management will be completed inpatient setting. Time: 18:54 Vital Signs Temperature 97.5 F L 12/06/17 10:34 Pulse Rate 100 12/06/17 10:34 Respiratory Rate 28 12/06/17 10:34 Blood Pressure 127/101 12/06/17 10:34 O2 Sat by Pulse Oximetry 96 12/06/17 10:34 Temperature 97.5 F L 12/06/17 10:34 Pulse Rate 121 12/06/17 17:01 Respiratory Rate 22 12/06/17 17:01 Blood Pressure 127/73 12/06/17 17:01 O2 Sat by Pulse Oximetry 97 12/06/17 17:01 Oxygen Delivery Oxygen Delivery Nasal Cannula Shortness of Breath/Dyspnea - MDM Narrative Medical decision making narrative: Shortness of breath, cough, COPD exacerbation, pneumonia, fluid overload - Medical Records Medical records reviewed: Yes I reviewed the patient's medical records. - Lab Data Lab results reviewed: Yes I reviewed the patient's lab results. Result diagrams: 12/06/17 10:50 12/06/17 10:50 Lab Results 12/06/17 12/06/17 12/06/17 Range/Units 10:50 10:50 10:50 WBC 12.5 H (4.3-11.1) K/mcL RBC 4.53 (3.82-4.97) M/mcL Hgb 13.7 (11.5-15.4) g/dL Hct 41.2 (35.3-44.9) % MCV 90.9 (83.0-100.0) fL MCH 30.2 (28.0-33.3) pg MCHC 33.3 (31.6-35.5) g/dL RDW 14.1 (11.5-14.5) % Plt Count 316 (140-400) K/mcL MPV 10.1 (9.4-12.4) fL Immature Gran % 0.8 (0-4) % Seg Neutrophils % 74.4 % Lymphocytes % 18.6 % Monocytes % 5.4 % Eosinophils % 0.6 % Basophils % 0.2 % Neutrophils # 9.3 H (1.6-8.9) K/mcL Lymphocytes # 2.3 (0.6-4.6) K/mcL Monocytes # 0.7 (0.0-1.3) K/mcL Eosinophils # 0.1 (0.0-0.6) K/mcL Basophils # 0.0 (0.0-0.2) K/mcL PT 14.4 H (9.4-12.1) Seconds INR 1.3 APTT 29.8 (26.0-36.0) Seconds Sodium 144 (136-145) mEq/L Potassium 3.8 (3.5-5.1) mEq/L Chloride 114 H (98-107) mEq/L Carbon Dioxide 24 (23-29) mEq/L BUN 18 (6-20) mg/dL Creatinine 0.99 (0.60-1.20) mg/dL Est GFR ( Amer) > 60 (> 60) Est GFR (Non-Af Amer) > 60 (> 60) BUN/Creatinine Ratio 18 (6-26) Glucose 85 (70-105) mg/dL Calculated Osmolality 299 (280-300) Calcium 8.8 (8.6-10.3) mg/dL Total Bilirubin 0.7 (0.3-1.0) mg/dL AST 32 (13-39) Units/L ALT 27 (7-52) Units/L Alkaline Phosphatase 89 (34-104) Units/L Troponin I (< 0.04) ng/mL B-Natriuretic Peptide (Less than 100) pg/mL Serum Total Protein 5.9 L (6.4-8.9) g/dL Albumin 3.3 L (3.5-5.7) g/dL Globulin 2.6 (2.4-3.5) g/dL Albumin/Globulin Ratio 1.3 (1.1-2.2) Urine Color (Yellow) Urine Clarity (Clear) Urine pH (5.0-8.0) pH Units Ur Specific Ridge (1.010-1.025) Urine Protein (Neg-Trace) mg/dL Urine Glucose (UA) (Normal) mg/dL Urine Ketones (Negative) mg/dL Urine Blood (Negative) Urine Nitrite (Negative) Urine Bilirubin (Negative) Urine Urobilinogen (Normal) mg/dL Ur Leukocyte Esterase (Negative) Urine Microscopic RBC (0-3) per hpf Urine Microscopic WBC (0-3) per hpf Ur Squamous Epith Cells (None-Few) per lpf Urine Bacteria (None-Few) per hpf Hyaline Casts (None-Few) per lpf Ur Culture Indicated? (NO) 12/06/17 12/06/17 12/06/17 Range/Units 10:50 10:50 17:09 WBC (4.3-11.1) K/mcL RBC (3.82-4.97) M/mcL Hgb (11.5-15.4) g/dL Hct (35.3-44.9) % MCV (83.0-100.0) fL MCH (28.0-33.3) pg MCHC (31.6-35.5) g/dL RDW (11.5-14.5) % Plt Count (140-400) K/mcL MPV (9.4-12.4) fL Immature Gran % (0-4) % Seg Neutrophils % % Lymphocytes % % Monocytes % % Eosinophils % % Basophils % % Neutrophils # (1.6-8.9) K/mcL Lymphocytes # (0.6-4.6) K/mcL Monocytes # (0.0-1.3) K/mcL Eosinophils # (0.0-0.6) K/mcL Basophils # (0.0-0.2) K/mcL PT (9.4-12.1) Seconds INR APTT (26.0-36.0) Seconds Sodium (136-145) mEq/L Potassium (3.5-5.1) mEq/L Chloride (98-107) mEq/L Carbon Dioxide (23-29) mEq/L BUN (6-20) mg/dL Creatinine (0.60-1.20) mg/dL Est GFR ( Amer) (> 60) Est GFR (Non-Af Amer) (> 60) BUN/Creatinine Ratio (6-26) Glucose (70-105) mg/dL Calculated Osmolality (280-300) Calcium (8.6-10.3) mg/dL Total Bilirubin (0.3-1.0) mg/dL AST (13-39) Units/L ALT (7-52) Units/L Alkaline Phosphatase (34-104) Units/L Troponin I 0.03 (< 0.04) ng/mL B-Natriuretic Peptide 175 H (Less than 100) pg/mL Serum Total Protein (6.4-8.9) g/dL Albumin (3.5-5.7) g/dL Globulin (2.4-3.5) g/dL Albumin/Globulin Ratio (1.1-2.2) Urine Color Yellow (Yellow) Urine Clarity Cloudy A (Clear) Urine pH 6.5 (5.0-8.0) pH Units Ur Specific [place] > 1.030 H (1.010-1.025) Urine Protein 30 H (Neg-Trace) mg/dL Urine Glucose (UA) Normal (Normal) mg/dL Urine Ketones Trace H (Negative) mg/dL Urine Blood Moderate H (Negative) Urine Nitrite Negative (Negative) Urine Bilirubin Small H (Negative) Urine Urobilinogen Normal (Normal) mg/dL Ur Leukocyte Esterase Large H (Negative) Urine Microscopic RBC 15-30 H (0-3) per hpf Urine Microscopic WBC TNTC H (0-3) per hpf Ur Squamous Epith Cells Many H (None-Few) per lpf Urine Bacteria None Seen (None-Few) per hpf Hyaline Casts None Seen (None-Few) per lpf Ur Culture Indicated? NO. A (NO) - Radiology Data Radiology results reviewed: Yes I reviewed the patient's radiology results. CT scan shows possible pulmonary edema versus pneumonia. - EKG Data EKG attestation: Yes I reviewed and interpreted this EKG. EKG results narrative: EKG shows sinus tachycardia. Heart rate of 101. [place] interval 118. QRS duration of 88. QTC of 439. [place] appears to be normal. No acute signs of ST segment elevation or abnormality. No acute signs of WPW or Brugada syndrome. The morphology is EKG is similar in comparison to an EKG on 01/20/17
[2017-12-06 11:45] LABS: Alanine Aminotransferase 27 Units/L (7-52); Albumin 3.3 g/dL (3.5-5.7); Albumin/Globulin Ratio 1.3 (1.1-2.2); Alkaline Phosphatase 89 Units/L (34-104); Aspartate Amino Transferase 32 Units/L (13-39); BUN/Creatinine Ratio 18 (6-26); Bilirubin,Total 0.7 mg/dL (0.3-1.0); Blood Urea Nitrogen 18 mg/dL (6-20); Calcium 8.8 mg/dL (8.6-10.3); Carbon Dioxide 24 mEq/L (23-29); Chloride 114 mEq/L (98-107); Globulin 2.6 g/dL (2.4-3.5); Glucose 85 mg/dL (70-105); Osmolality,Calculated 299 (280-300); Potassium 3.8 mEq/L (3.5-5.1); Sodium 144 mEq/L (136-145); Total Protein 5.9 g/dL (6.4-8.9); eGFR For Non-African Americans > 60 (> 60)
[2017-12-06] MEDS ORDERED: Azithromycin 500 MG in 0.9 % Sodium Chloride 250 ML IVPB ONE (12:00)
[2017-12-06] MEDS ORDERED: Levofloxacin 750 MG/150 ML 750 MG/150 ML BAG IVPB ONE (12:00)
[2017-12-06] MEDS ORDERED: cefTRIAXone 2,000 MG in Water for inj. (sterile) 20 ML 20 ML IVP ONE (12:00)
--- NOTE | 2017-12-06 13:05 | Electrocardiograph Report ---
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
[2017-12-06] MEDS ORDERED: Furosemide 40 MG/4 ML VIAL IVP ONE (13:19)
[2017-12-06] MEDS ORDERED: *HR* HYDROcodone/Acet 5/325 mg TABLET PO ONE (16:29)
[2017-12-06 17:23] LABS: Bilirubin,Urine Small (Negative); Blood,Urine Moderate (Negative); Clarity,Urine Cloudy (Clear); Color,Urine Yellow (Yellow); Glucose,Urine (UA) Normal (Normal); Ketones,Urine Trace mg/dL (Negative); Leukocyte Esterase,Urine Large (Negative); Nitrite,Urine Negative (Negative); PH,Urine 6.5 pH Units (5.0-8.0); Protein,Urine 30 mg/dL (Neg-Trace); Specific Gravity,Urine > 1.030 (1.010-1.025); Urobilinogen,Urine Normal (Normal)
[2017-12-06 17:26] LABS: Bacteria,Urine None Seen per hpf (None-Few); Hyaline Casts,Urine None Seen per lpf (None-Few); RBC,Urine 15-30 per hpf (0-3); Squamous Epithelial Cell,Urine Many per lpf (None-Few); WBC,Urine TNTC per hpf (0-3)
[2017-12-06] MEDS ORDERED: *HR* FentaNYL (PF) 100 MCG/2 ML VIAL IVP ONE (18:38)
[2017-12-06] MEDS ORDERED: Naloxone 0.4 MG/ML INJ IVP PRN (23:50)
--- NOTE | 2017-12-07 00:17 | Internal Med History&Physical ---
Date of Encounter: 12/07/17 Time of Encounter: 23:30 Internal Medicine - H&P: HPI Chief complaint: CHF, COPD, pneumonia Admitted From: Emergency Dept Plans for Post Hospital Care: Home History of present illness: Ms. Hills is a 37 year old female Patient presented to the ER earlier in the morning on the day of admission with difficulty breathing. She states that it started a few days before, but got worse the night before, and continued to worsen when she awoke in the morning. She immediately called the ambulance who transported her to the hospital. SHe states that she has had similar symptoms like this in the past. She had gone to an urgent care on 12/01/17, diagnosed with bronchitis, given steroids, antibiotics and sent home. She completed the treatment but continued to feel sick. She is on 4L of oxygen at home, and uses CPAP as well. Lately she has not been able to use her CPAP machine as it was taken from her after it broke. It has not returned to her yet. She has had some nausea, but denies vomiting. Denies chest pain but has shortness of breath. No diarrhea, constipation abdominal pain or dysuria. She has not missed doses of her home medications. In the ER the patient's BNP was elevated at 175, CBC and BMP were within normal limits. Chest x-ray showed questionable atypical pneumonia, CTA showed diffused ground glass opacities in the lung that could be pulmonary edema vs atypical infection. There was also a new 8mm nodule that was not seen in a previous image last year. Upon my assessment the patient states that she spent many hours in the ER due to difficulty obtaining an IV site. She received antibiotics, breathing treatments, lasix and steroids. She was admitted for further management of her breathing problems. Past Med Surg Social Fam HX - Past Medical History Medical history: CHF, COPD, kidney stones Additional medical history: Scoliosis, Psychiatric history: anxiety, depression - Past Surgical History Surgical History: non-contributory, cholecystectomy Additional surgical history: tonsilectomy, kidney stone removal, scoliosis repair with rods - Social History Smoking Status: Current every day smoker Packs per day: 1/2pck Smokeless Tobacco Status: No Alcohol use: none Drug use: none - Family History Mother Hx Family Cardiac Disorders: Yes (MIs) Hx Family Neurologic Disorders: Yes (neuro) Father History Unknown: Yes Adopted: No Hx Family Cancer: Yes (neck) Internal Medicine - H&P: Meds Methadone 20 mg PO Q8HR 11/28/16 [History] Oxycodone HCl/Acetaminophen [Percocet 10-325 mg Tablet] 1 each PO Q4-6H PRN 01/04 [History] Albuterol Sulfate [Albuterol Inhaler] 2 puff IH Q4H PRN 11/29/16 [History] Amlodipine Besylate 2.5 mg PO DAILY 11/29/16 [History] Aripiprazole [Abilify Maintena] 300 mg IM Q28D 11/29/16 [History] Chlorthalidone 25 mg PO DAILY 11/29/16 [History] Ciclopirox Olamine [Ciclopirox] 1 appl TP BID 11/29/16 [History] Ergocalciferol (VITAMIN D2) [Vitamin D2] 50,000 unit PO 2XW 11/29/16 [History] Fluticasone/Salmeterol [Advair 250-50 Diskus] 1 each IH BID 11/29/16 [History] Potassium Chloride [Klor-Con 10] 10 meq PO DAILY 11/29/16 [History] Rivaroxaban [Xarelto] 20 mg PO DAILY 11/29/16 [History] Sertraline [Zoloft] 100 mg PO DAILY 11/29/16 [History] rOPINIRole [Requip] 0.25 mg PO HS 11/29/16 [History] Ipratropium/Albuterol Neb [Duoneb] 3 ml IH TID #90 inh 12/06/16 [Rx] Atorvastatin [Lipitor] 40 mg PO HS 01/20/17 [History] Furosemide [Lasix] 40 mg PO BID 01/20/17 [History] Metoprolol [Lopressor] 12.5 mg PO BID 01/20/17 [History] Spironolactone [Aldactone] 25 mg PO BID 01/20/17 [History] Ondansetron ODT [Zofran ODT] 4 mg SL Q8HR PRN #10 tab.rapdis 05/31/17 [Rx] 3 Allergy/AdvReac Type Severity Reaction Status Date / Time morphine AdvReac Hallucinati Verified 12/06/17 10:33 ng All Systems PM: A 10-system review of systems was performed and is negative for pertinent findings except as documented above in the HPI. - Constitutional Vitals: Temp Pulse Resp BP Pulse Ox 98.0 F 91 20 145/99 94 12/07/17 00:11 12/07/17 00:11 12/07/17 00:11 12/07/17 00:11 12/06/17 23:52 General appearance: Present: cooperative, mild distress, A&O X 3, pleasant, answers questions appropriately Exam: As above - Head Head exam: Present: normal inspection - Eye Eye exam: Present: EOMI, normal appearance - Respiratory Respiratory exam: Present: rales, wheezes. Absent: chest wall tenderness, decreased breath sounds - Cardiovascular Cardiovascular exam: Present: RRR. Absent: diastolic murmur, systolic murmur - GI/Abdominal GI/Abdominal exam: Present: normal bowel sounds, soft. Absent: tenderness - Extremities Exam Extremities exam: Present: pedal edema, warm, radial pulses palpable and symmetrical. Absent: calf tenderness, tenderness Additional comments: Left lower extremity chronic lymphedema - Neurological Exam Neurological exam: Present: no focal deficits, strengths equal and symetr throughout. Absent: motor sensory deficit, facial droop, speech deficit - Skin Skin exam: Present: dry, normal color, warm Internal Med - H&P Results - Labs CBC & Chem 7: 12/06/17 10:50 12/06/17 10:50 - Assessment and plan (1) Sepsis Current Visit: Yes Status: Acute Assessment and plan: Meets sepsis criteria for elevated WBCs, heart rate, respiratory rate and pneumonia source. Lactate not obtained in ER. Treatment as below Obtaining lactate, will trend if elevated Vitals q shift. Qualifiers: Sepsis type: sepsis due to unspecified organism Qualified Code(s): A41.9 - Sepsis, unspecified organism (2) Community acquired pneumonia Current Visit: Yes Status: Acute Assessment and plan: Atypical pneumonia as evidenced by chest imaging. Blood cultures obtained, levaquin, azithromycin and ceftriaxone given in the ER. Follow up blood cultures Urine antigens Continue azithromycin and ceftriaxone Monitor for worsening signs of infection. Qualifiers: Laterality: unspecified laterality Qualified Code(s): J18.9 - Pneumonia, unspecified organism (3) Acute diastolic (congestive) heart failure Current Visit: No Status: Acute Assessment and plan: BNP elevated above baseline from previous visits. Lasix given in ER. Takes diuretics at home chronically. Continue home meds with exception of PO lasix Continue IV lasix initiated in ER Daily weights Strict I & Os Oxygen as needed. (4) Acute exacerbation of chronic obstructive airways disease Current Visit: Yes Status: Acute Assessment and plan: History of smoking, has had exacerbations in the past. Azithromycin 500mg daily Prednisone 40mg daily Duoneb Q4H Albuterol PRN Oxygen as needed. (5) SOB (shortness of breath) on exertion Current Visit: Yes Status: Acute Assessment and plan: Secondary to CHF, COPD and pneumonia. Treatment as above. Continue BiPAP while in hospital Social work consult to get home CPAP machine back. (6) Chronic back pain Current Visit: No Status: Chronic Assessment and plan: S/p scoliosis correction and hardware placement. Takes methadone and oxycodone as needed. Continue home medications Continue to monitor oxygenation to avoid over-sedation. Qualifiers: Qualified Code(s): M54.9 - Dorsalgia, unspecified; G89.29 - Other chronic pain (7) Tobacco use Current Visit: No Status: Acute Assessment and plan: 1ppd smoker. Declines nicotine patch Likely contributes to her symptoms overall. (8) DVT prophylaxis Current Visit: No Status: Acute Assessment and plan: On xarelto for history of PE and afib. Continue xarelto - Time Spent With Patient Total time spent is greater than 50% in coordination of care (as documented) at patient's floor/unit and/or counseling patient: Greater than 35 minutes
[2017-12-07] MEDS: Ondansetron 4 MG/2 ML VIAL IVP PRN ×2 (02:38→15:50)
[2017-12-07] MEDS: *HR* OxyCODONE/APAP 10/325 TABLET PO PRN ×3 (02:38→15:43)
[2017-12-07] MEDS: Ipratropium/Albuterol Neb 3 ML IH SCH ×4 (03:57→22:47)
[2017-12-07 04:49] LABS: Hematocrit 37.2 % (35.3-44.9); Hemoglobin 12.5 g/dL (11.5-15.4); Mean Corpuscular HGB Conc 33.6 g/dL (31.6-35.5); Mean Corpuscular Hemoglobin 30.3 pg (28.0-33.3); Mean Corpuscular Volume 90.1 fL (83.0-100.0); Mean Platelet Volume 9.8 fL (9.4-12.4); Platelet Count 293 K/mcL (140-400); Red Blood Count 4.13 M/mcL (3.82-4.97); Red Cell Distribution Width 13.8 % (11.5-14.5)
[2017-12-07 06:56] LABS: Blood Urea Nitrogen 20 mg/dL (6-20); Calcium 8.6 mg/dL (8.6-10.3); Carbon Dioxide 22 mEq/L (23-29); Chloride 111 mEq/L (98-107); Glucose 119 mg/dL (70-105); Osmolality,Calculated 296 (280-300); Potassium 3.9 mEq/L (3.5-5.1); Sodium 141 mEq/L (136-145)
[2017-12-07] MEDS: *HR* Methadone 10 MG TABLET PO SCH ×2 (08:33→15:43)
[2017-12-07] MEDS: *HR* Rivaroxaban 10 MG TABLET PO SCH (08:33)
[2017-12-07] MEDS: Spironolactone 25 MG TABLET PO SCH ×2 (08:35→21:21)
[2017-12-07] MEDS: amLODIPine 5 MG TABLET PO SCH (08:35)
[2017-12-07] MEDS: Clotrimazole 1% CRM 15 GM TUBE TP SCH (08:44)
[2017-12-07 08:45] LABS: BUN/Creatinine Ratio 19 (6-26); eGFR For Non-African Americans 57 (> 60)
[2017-12-07] MEDS ORDERED: Furosemide 40 MG/4 ML VIAL IVP SCH ×2 (09:00→17:00)
[2017-12-07] MEDS ORDERED: cefTRIAXone 1,000 MG in Water for inj. (sterile) 20 ML 10 ML IVP SCH (09:00)
[2017-12-07] MEDS ORDERED: predniSONE 20 MG TABLET PO SCH (09:00)
[2017-12-07] MEDS ORDERED: ARIPIPRAZOLE 300 MG IM SCH (12:00)
--- NOTE | 2017-12-07 14:47 | Internal Med Progress Note ---
Hospitalist Progress Note - Encounter Date of Encounter: 12/07/17 Time of Encounter: 14:47 - Subjective Interval History: Patient seen and evaluated at bedside, reports feeling nauseated, denies vomiting. Denies abdominal pain, shortness of breath or chest pain. But reports headache. - Exam Vitals: Temp Pulse Resp BP Pulse Ox 97.9 F 72 16 138/91 92 12/07/17 06:37 12/07/17 06:37 12/07/17 10:54 12/07/17 06:37 12/07/17 10:54 Exam: General: Alert and oriented 4. In mild distress due to headache. HEENT: EOM, pupils equal, round and reactive. Cardiovascular: Normal S1 & S2, no rubs, murmurs or gallops. No JVD. Pulse regular. Lungs: Bilateral expiratory wheezes, mild crackles in the posterior bases bilaterally. Abdomen:Soft, non-tender, no rigidity. Extremities: Lymphedema the left lower extremity, 2+ edema in the right lower extremity. Neurological: Normal cognition and motor skills. CN II-XII intact. Rest of the physical exam is non contributory - Assessment and Plan (1) Acute exacerbation of chronic obstructive airways disease Current Visit: Yes Status: Acute Assessment and Plan: Expiratory wheezing bilaterally. Plan DC prednisone and start Solu-Medrol 40 mg IV twice a day Continue nebs Incentive spirometry Continue oxygen by nasal cannula, titrate for O2 sat duration more than 92%. Discontinue azithromycin and ceftriaxone. started on Levofloxacin 750 mg IV daily F/U blood culture urine negative for atypical organisms (2) Community acquired pneumonia Current Visit: Yes Status: Acute Assessment and Plan: CTA chest: No gross evidence of central or proximal segmental pulmonary embolus. Diffuse bilateral ground-glass lung opacities are nonspecific and may represent pulmonary edema versus an atypical infection. An 8 mm right upper lobe nodule is nonspecific. Plan started on levofloxacin. Ceftriaxone and Azithromycin discontinued as patient recently had completed treat with azythro as outpatient urine negative for atypical organisms. (3) Congestive heart failure Current Visit: Yes Status: Acute Assessment and Plan: Mild crackles at the posterior bases. Plan Continue spironolactone 25 mg by mouth twice a day Continue Lasix 40 mg IV twice a day Strict intake and output Daily weight 2 g sodium diet On chlorthalidone 5 mg daily. Fluid restriction to 1.5 L a day (4) Hx of pulmonary embolus Current Visit: Yes Status: Acute Assessment and Plan: CTA: No gross evidence of central or proximal segmental pulmonary embolus. Plan: Continue full dose anticoagulation with Xarelto. (5) Chronic respiratory failure Current Visit: No Status: Acute Assessment and Plan: Patient with 4 L of oxygen by nasal cannula at home. Continue oxygen by nasal cannula. (6) Morbid obesity Current Visit: No Status: Acute (7) Nausea Current Visit: Yes Status: Acute Assessment and Plan: Plan Ondansetron 4mg/IV Q8HR PRN for nausea and vomiting diet as tolerated. (8) Chronic back pain Current Visit: No Status: Chronic Assessment and Plan: Plan: Continue current pain management. (9) Hypertension Current Visit: Yes Status: Acute Assessment and Plan: BP well controlled. Plan: Continue amlodipine 2.5 mg by mouth daily Patient on spironolactone, furosemide and chlorthalidone. DVT Prophylaxis: Anticoagulated with Xarelto due to Hx of PE - Time Spent with Patient Total time spent is greater than 50% in coordination of care (as documented) at patient's floor/unit and/or counseling patient: Greater than 35 minutes Plan of Care Discussed with: patient (and the nurse.) Internal Medicine: Result - Labs CBC & Chem 7: 12/07/17 04:30 12/07/17 04:30 Labs: Short CBC 12/07/17 Range/Units 04:30 WBC 16.1 H (4.3-11.1) K/mcL Hgb 12.5 (11.5-15.4) g/dL Hct 37.2 (35.3-44.9) % Plt Count 293 (140-400) K/mcL [facility] 12/07/17 04:30 Sodium 141 Potassium 3.9 Chloride 111 H Carbon Dioxide 22 L BUN 20 Creatinine 1.07 Glucose 119 H Calcium 8.6 - ABG Interpretation ABG results: PT/INR, D-dimer PT 14.4 Seconds (9.4-12.1) H 12/06/17 10:50 Consult Discharge Plan - Plan Referrals: Kian Croft MD [Primary Care Provider] - (2) Community acquired pneumonia Qualifiers: Laterality: unspecified laterality Qualified Code(s): J18.9 - Pneumonia, unspecified organism (3) Congestive heart failure Qualifiers: Heart failure type: diastolic Heart failure chronicity: acute on chronic Qualified Code(s): I50.33 - Acute on chronic diastolic (congestive) heart failure (5) Chronic respiratory failure Qualifiers: Respiratory failure complication: hypoxia Qualified Code(s): J96.11 - Chronic respiratory failure with hypoxia (8) Chronic back pain Qualifiers: Back pain location: back pain in unspecified location Back pain laterality: unspecified Qualified Code(s): M54.9 - Dorsalgia, unspecified; G89.29 - Other chronic pain (9) Hypertension Qualifiers: Hypertension type: unspecified Qualified Code(s): I10 - Essential (primary) hypertension
[2017-12-07] MEDS ORDERED: Azithromycin 500 MG in D5% in Water 250 ML IVPB SCH (18:00)
[2017-12-07] MEDS: Levofloxacin 750 MG/150 ML 750 MG/150 ML BAG IVPB SCH (18:55)
[2017-12-07] MEDS: MethylPREDNISolone 40 MG/ML VIAL IVP SCH (18:55)
[2017-12-07] MEDS: rOPINIRole 0.25 MG TABLET PO SCH (21:21)
[2017-12-07] MEDS ORDERED: Acetaminophen 325 MG TABLET PO ONE (21:37)
[2017-12-07] MEDS ORDERED: Ondansetron 4 MG/2 ML VIAL IVP ONE (21:37)
[2017-12-07] MEDS ORDERED: Budesonide/Formoterol 80/4.5 MDI IH SCH (22:00)
[2017-12-08] MEDS: *HR* Methadone 10 MG TABLET PO SCH ×3 (00:22→17:07)
[2017-12-08] MEDS: Ipratropium/Albuterol Neb 3 ML IH SCH ×4 (04:11→23:06)
[2017-12-08] MEDS: *HR* OxyCODONE/APAP 10/325 TABLET PO PRN ×2 (04:24→18:08)
[2017-12-08 05:05] LABS: Basophils % 0.2 %; Hemoglobin 13.9 g/dL (11.5-15.4); Immature Granulocytes % 0.9 % (0-4); Lymphocytes # 1.9 K/mcL (0.6-4.6); Lymphocytes % 9.7 %; Mean Corpuscular HGB Conc 33.1 g/dL (31.6-35.5); Mean Corpuscular Hemoglobin 30.1 pg (28.0-33.3); Mean Corpuscular Volume 90.9 fL (83.0-100.0); Mean Platelet Volume 9.8 fL (9.4-12.4); Monocytes # 0.8 K/mcL (0.0-1.3); Monocytes % 4.3 %; Neutrophils # 16.3 K/mcL (1.6-8.9); Platelet Count 357 K/mcL (140-400); Red Blood Count 4.62 M/mcL (3.82-4.97); Red Cell Distribution Width 14.1 % (11.5-14.5); Segmented Neutrophils % 84.9 %
[2017-12-08 05:19] LABS: Magnesium 2.1 mg/dL (1.6-2.6); Potassium 4.1 mEq/L (3.5-5.1)
[2017-12-08] MEDS: Clotrimazole 1% CRM 15 GM TUBE TP SCH ×3 (05:51→19:36)
[2017-12-08] MEDS: MethylPREDNISolone 40 MG/ML VIAL IVP SCH ×2 (05:54→17:07)
[2017-12-08] MEDS: Ondansetron 4 MG/2 ML VIAL IVP PRN ×2 (09:40→19:43)
[2017-12-08] MEDS: *HR* Rivaroxaban 10 MG TABLET PO SCH (09:40)
[2017-12-08] MEDS: amLODIPine 5 MG TABLET PO SCH (09:41)
[2017-12-08] MEDS: Furosemide 40 MG/4 ML VIAL IVP SCH (09:59)
[2017-12-08] MEDS: Spironolactone 25 MG TABLET PO SCH ×2 (12:26→21:50)
--- NOTE | 2017-12-08 12:52 | Internal Med Progress Note ---
Hospitalist Progress Note - Encounter Date of Encounter: 12/08/17 Time of Encounter: 12:50 - Subjective Interval History: Evaluated at bedside, patient reports doing well and that she feels that she is close to her baseline. Denies shortness of breath, chest pain or headaches. Reports feeling nauseated. - Exam Vitals: Temp Pulse Resp BP Pulse Ox 98.1 F 56 16 128/87 97 12/08/17 11:14 12/08/17 11:14 12/08/17 11:14 12/08/17 11:14 12/08/17 11:14 Exam: General: Alert and oriented 3 no acute distress. Cardiovascular: Normal S1 & S2, no rubs, murmurs or gallops. JVD unable to assess due to short neck. Pulse regular. Lungs: Scattered expiratory with wheezes bilaterally. No or crackles. Abdomen:Soft, non-tender, no rigidity. Extremities: 2+ edema in the left lower extremity which is chronic due to lymphedema. Neurological:Normal cognition and motor skills. Rest of the physical exam is non contributory - Assessment and Plan (1) Acute exacerbation of chronic obstructive airways disease Current Visit: Yes Status: Acute Assessment and Plan: Expiratory wheezing on auscultation bilaterally. Plan Continue Solu-Medrol 40 mg IV twice a day. Continue with nebs as scheduled Continue levofloxacin 750 mg IV daily to complete 5 days. On Symbicort. (2) Community acquired pneumonia Current Visit: Yes Status: Acute Assessment and Plan: Improving pneumonia. Plan Continue IV antibiotics Follow-up blood cultures (3) Congestive heart failure Current Visit: Yes Status: Acute Assessment and Plan: 4 liters balance negative. No crackles on auscultation Plan Decrease furosemide to 40 mg daily Continue chlorthalidone and his spironolactone On a beta jesus. (4) Hx of pulmonary embolus Current Visit: Yes Status: Acute Assessment and Plan: Continue anticoagulation with Rivaroxaban. (5) Chronic respiratory failure Current Visit: No Status: Acute Assessment and Plan: Patient with 4 L of oxygen by nasal cannula at home. Continue oxygen by nasal cannula. (6) Morbid obesity Current Visit: No Status: Acute (7) Nausea Current Visit: Yes Status: Acute Assessment and Plan: Patient still reports feeling nauseated, denies nausea or vomiting. Plan Continue ondansetron 4 mg IV every 8 hours when necessary for nausea (8) Chronic back pain Current Visit: No Status: Chronic Assessment and Plan: Methadone 20 mg by mouth every 8 hours (9) Hypertension Current Visit: Yes Status: Acute Assessment and Plan: Blood pressure well controlled. Continue current antihypertensive medications. (10) JUAN (acute kidney injury) Current Visit: Yes Status: Acute Assessment and Plan: Likely secondary to diuresis. Plan Decrease furosemide to 40 mg daily. follow a.m. BMP. DVT Prophylaxis: Patient on oral anticoagulant due to history of PE - Summary of Assessment and Plan Summary of Assessment and Plan: Patient needs to remain in the hospital for at least 24 more hours to receive IV steroids. - Time Spent with Patient Total time spent is greater than 50% in coordination of care (as documented) at patient's floor/unit and/or counseling patient: Greater than 35 minutes Plan of Care Discussed with: patient Internal Medicine: Result - Labs CBC & Chem 7: 12/08/17 04:35 12/08/17 04:35 Labs: Short CBC 12/08/17 Range/Units 04:35 WBC 19.2 H (4.3-11.1) K/mcL Hgb 13.9 (11.5-15.4) g/dL Hct 42.0 (35.3-44.9) % Plt Count 357 (140-400) K/mcL Neutrophils # 16.3 H (1.6-8.9) K/mcL BMP 12/08/17 04:35 Sodium 141 Potassium 4.1 Chloride 105 Carbon Dioxide 26 BUN 31 H Creatinine 1.35 H Glucose 126 H Calcium 9.0 - ABG Interpretation ABG results: PT/INR, D-dimer PT 14.4 Seconds (9.4-12.1) H 12/06/17 10:50 Consult Discharge Plan - Plan Referrals: Kian Croft MD [Primary Care Provider] - (2) Community acquired pneumonia Qualifiers: Laterality: unspecified laterality Qualified Code(s): J18.9 - Pneumonia, unspecified organism (3) Congestive heart failure Qualifiers: Heart failure type: diastolic Heart failure chronicity: acute on chronic Qualified Code(s): I50.33 - Acute on chronic diastolic (congestive) heart failure (5) Chronic respiratory failure Qualifiers: Respiratory failure complication: hypoxia Qualified Code(s): J96.11 - Chronic respiratory failure with hypoxia (8) Chronic back pain Qualifiers: Back pain location: back pain in unspecified location Back pain laterality: unspecified Qualified Code(s): M54.9 - Dorsalgia, unspecified; G89.29 - Other chronic pain (9) Hypertension Qualifiers: Hypertension type: unspecified Qualified Code(s): I10 - Essential (primary) hypertension
[2017-12-08] MEDS: Levofloxacin 750 MG/150 ML 750 MG/150 ML BAG IVPB SCH (17:07)
[2017-12-08] MEDS: rOPINIRole 0.25 MG TABLET PO SCH (21:51)
[2017-12-09] MEDS: *HR* Methadone 10 MG TABLET PO SCH ×3 (00:16→15:28)
[2017-12-09] MEDS: Ipratropium/Albuterol Neb 3 ML IH SCH ×2 (03:37→10:15)
[2017-12-09] MEDS: *HR* OxyCODONE/APAP 10/325 TABLET PO PRN (04:32)
[2017-12-09 04:48] LABS: Basophils # 0.1 K/mcL (0.0-0.2); Basophils % 0.3 %; Hematocrit 42.9 % (35.3-44.9); Hemoglobin 14.2 g/dL (11.5-15.4); Immature Granulocytes % 1.9 % (0-4); Lymphocytes # 2.2 K/mcL (0.6-4.6); Lymphocytes % 11.9 %; Mean Corpuscular HGB Conc 33.1 g/dL (31.6-35.5); Mean Corpuscular Hemoglobin 30.3 pg (28.0-33.3); Mean Corpuscular Volume 91.5 fL (83.0-100.0); Mean Platelet Volume 9.5 fL (9.4-12.4); Monocytes # 1.4 K/mcL (0.0-1.3); Monocytes % 7.5 %; Neutrophils # 14.3 K/mcL (1.6-8.9); Platelet Count 363 K/mcL (140-400); Red Blood Count 4.69 M/mcL (3.82-4.97); Red Cell Distribution Width 13.7 % (11.5-14.5); Segmented Neutrophils % 78.4 %
[2017-12-09 05:01] LABS: Calcium 8.9 mg/dL (8.6-10.3); Magnesium 2.3 mg/dL (1.6-2.6); Potassium 4.2 mEq/L (3.5-5.1)
[2017-12-09] MEDS: MethylPREDNISolone 40 MG/ML VIAL IVP SCH (05:58)
[2017-12-09 07:23] VITALS: BP 113/73
--- NOTE | 2017-12-09 08:57 | Discharge Summary ---
- NOTES TO OUTPATIENT PROVIDER Notes to Outpatient Provider: Follow-up BMP within a week. Patient needs an appointment with a chemical etch operator for a repeat sleep study. Date of Encounter: 12/09/17 Time of Encounter: 08:52 - Discharge Diagnosis (1) Acute exacerbation of chronic obstructive airways disease Priority: Primary Status: Resolved (2) Community acquired pneumonia Priority: Secondary Status: Acute Qualifiers: Laterality: unspecified laterality Qualified Code(s): J18.9 - Pneumonia, unspecified organism (3) Congestive heart failure Priority: Secondary Status: Chronic Qualifiers: Heart failure type: diastolic Heart failure chronicity: acute on chronic Qualified Code(s): I50.33 - Acute on chronic diastolic (congestive) heart failure (4) Hx of pulmonary embolus Priority: Secondary Status: Chronic (5) Chronic respiratory failure Priority: Secondary Status: Chronic Qualifiers: Respiratory failure complication: hypoxia Qualified Code(s): J96.11 - Chronic respiratory failure with hypoxia (6) Morbid obesity Priority: Secondary Status: Chronic (7) Nausea Priority: Secondary Status: Resolved (8) Chronic back pain Priority: Secondary Status: Chronic Qualifiers: Back pain location: back pain in unspecified location Back pain laterality : unspecified Qualified Code(s): M54.9 - Dorsalgia, unspecified; G89.29 - Other chronic pain (9) Hypertension Priority: Secondary Status: Chronic Qualifiers: Hypertension type: unspecified Qualified Code(s): I10 - Essential (primary ) hypertension (10) JUAN (acute kidney injury) Priority: Secondary Status: Acute Hospital course: Ms. Hills is a 37 year old female past medical history significant for CHF , COPD, depression, chronic back pain, chronic hypoxemic respiratory failure on 4 L home oxygen. Patient presented to the emergency room complaining of progressive shortness of breath, after recently being treated for COPD exacerbation in the outpatient setting. Patient admitted to the hospital due to COPD exacerbation which failed outpatient treatment. Treated with IV steroids and IV antibiotic. A CTA of the chest do not show groundglass opacity possible pulmonary congestion versus atypical infection. Patient acute symptoms have resolved, patient reports that she is back to her baseline. Patient is clinically is stable to be discharged. Recommended to follow-up with her primary care physician and have a BMP within a week to follow kidney function. - Time Spent with Patient Total time spent providing and/or coordinating discharge services: Greater than 30 minutes - Discharge Medications Prescriptions: levoFLOXacin [Levofloxacin] 750 mg PO DAILY 5 Days #5 tablet Home Medications: Methadone 20 mg PO Q8HR 11/28/16 [History] Oxycodone HCl/Acetaminophen [Percocet 10-325 mg Tablet] 1 each PO Q4-6H PRN 01/04 [History] Albuterol Sulfate [Albuterol Inhaler] 2 puff IH Q4H PRN 11/29/16 [History] Amlodipine Besylate 2.5 mg PO DAILY 11/29/16 [History] Aripiprazole [Abilify Maintena] 300 mg IM Q28D 11/29/16 [History] Chlorthalidone 25 mg PO DAILY 11/29/16 [History] Ciclopirox Olamine [Ciclopirox] 1 appl TP BID 11/29/16 [History] Ergocalciferol (VITAMIN D2) [Vitamin D2] 50,000 unit PO 2XW 11/29/16 [History] Fluticasone/Salmeterol [Advair 250-50 Diskus] 1 each IH BID 11/29/16 [History] Potassium Chloride [Klor-Con 10] 10 meq PO DAILY 11/29/16 [History] Rivaroxaban [Xarelto] 20 mg PO DAILY 11/29/16 [History] Sertraline [Zoloft] 100 mg PO DAILY 11/29/16 [History] rOPINIRole [Requip] 0.25 mg PO HS 11/29/16 [History] Ipratropium/Albuterol Neb [Duoneb] 3 ml IH TID #90 inh 12/06/16 [Rx] Atorvastatin [Lipitor] 40 mg PO HS 01/20/17 [History] Furosemide [Lasix] 40 mg PO BID 01/20/17 [History] Metoprolol [Lopressor] 12.5 mg PO BID 01/20/17 [History] Spironolactone [Aldactone] 25 mg PO BID 01/20/17 [History] Ondansetron ODT [Zofran ODT] 4 mg SL Q8HR PRN #10 tab.rapdis 05/31/17 [Rx] levoFLOXacin [Levofloxacin] 750 mg PO DAILY 5 Days #5 tablet 12/09/17 [Rx] Allergies/Adverse Reactions: 3 Allergy/AdvReac Type Severity Reaction Status Date / Time morphine AdvReac Hallucinati Verified 12/06/17 10:33 ng Date of admission: 12/07/17 00:17 Primary care physician: Kian Croft MD - Constitutional Vitals: Temp Pulse Resp BP Pulse Ox 97.6 F 56 18 113/73 94 12/09/17 07:18 12/09/17 07:18 12/09/17 07:18 12/09/17 07:18 12/09/17 07:18 General appearance: Present: cooperative, mild distress, A&O X 3, pleasant, answers questions appropriately Exam: General: Alert and oriented 3 no acute distress. Cardiovascular: Normal S1 & S2, no rubs, murmurs or gallops. JVD unable to assess due to short neck. Pulse regular. Lungs: Minimal Scattered expiratory with wheezes bilaterally. No crackles or rales. Abdomen: Obese, Soft, non-tender, no rigidity. Extremities: 2+ edema in the left lower extremity which is chronic due to lymphedema. Neurological: CN II-XII intact. Rest of the physical exam is non contributory - Patient Status Disposition: Home, Self-Care Condition: Good Functional capacity at discharge: independent ambulation Overall status at discharge: patient is progressing back to baseline - Discharge Instructions Follow Up With: Kian Croft MD [Primary Care Provider] - - Diet and Activity Activity: resume usual activities as tolerated, wear oxygen at all times Diet: advance to your usual diet
[2017-12-09] MEDS: Furosemide 40 MG/4 ML VIAL IVP SCH (09:43)
[2017-12-09] MEDS: *HR* Rivaroxaban 10 MG TABLET PO SCH (09:43)
[2017-12-09] MEDS: amLODIPine 5 MG TABLET PO SCH (09:43)
[2017-12-09] MEDS: Spironolactone 25 MG TABLET PO SCH (09:44)
[2017-12-09] MEDS: Clotrimazole 1% CRM 15 GM TUBE TP SCH (09:46)
[2017-12-09] MEDS ORDERED: levoFLOXacin 750 MG TABLET PO SCH (18:00)
== END 2017-12-09 16:03 | disposition home or self-care (01) | DRG 871 ==
LOC: EMEROOARM 10:27 → 2NENU 10:27 → SUATTDRO 12-07 00:17
PROVIDERS: ADMIT Internal Medicine; ATTEND Internal Medicine